=== PATIENT | female | born 1935 | race Caucasian/White ===

== ENCOUNTER 2017-10-20 21:26 | Inpatient (IN) | payer MEDICARE, BC ==
[2017-10-20 22:40] VITALS: BP 153/68
--- NOTE | 2017-10-21 09:22 | History and Physical ---
History of Present Illness - HPI Chief Complaint: Increased in agitation HPI: Patient is a permanent resident of a SNF she was send for evaluation due to increased in agitation. Vital Signs: Last Vital Signs Temp 97.1 F 10/21/17 06:25 Pulse 69 10/21/17 06:25 Resp 19 10/21/17 06:25 BP 129/61 10/21/17 06:25 Pulse Ox 94 10/21/17 06:25 Past Medical History Cardiovascular: Report: CAD, CHF, HTN, NV Pulmonary: Report: No Pertinent Hx [employer]: Report: No Pertinent Hx GI: Report: No Pertinent Hx Psych: Report: No Pertinent Hx Musculoskeletal: Report: Stiffness, Other (Limited movement of lower extremities , contracture of lower extremities.) Rheumatologic: Report: No pertinent Hx Infectious Disease: Report: No Pertinent Hx Renal/: Report: No Pertinent Hx Endocrine: Report: No Pertinent Hx - Past Surgical History Past Surgical History: No pertinent Hx Family Medical History - Family Member not known History Unknown: Yes Social History Smoke: No Alcohol: None Drugs: None Lives: Shelter Domestic Violence: Negative - Medications Home Medications: Home Medication Medication Instructions Recorded Type Acetaminophen [Acetaminophen ER] 2 tab PO Q6H PRN 10/20/17 History Digoxin [Digitek] 125 mcg PO DAILY 10/20/17 History Hydrocodone/Acetaminophen [[place] 1 tab PO Q4HR PRN 10/20/17 History 325 mg-5 mg*] Ibuprofen [Motrin*] 1 tab PO Q6HR PRN 10/20/17 History Omeprazole 20 mg PO DAILY 10/20/17 History Polyethylene Glycol 3350 1 packet PO DAILY 10/20/17 History QUEtiapine Fumarate [SEROquel] 1 tab PO PRN PRN 10/20/17 History - Allergies Allergies/Adverse Reactions: Allergies Allergy/AdvReac Type Severity Reaction Status Date / Time No Known Allergies Allergy Verified 10/20/17 22:38 Review of Systems - Review of Systems Constitutional: Report: Weakness Eyes: Report: No Significant ENT: Report: No Significant, Nose Pain Respiratory: Report: No Significant Cardiovascular: Report: No Significant Gastrointestinal: Report: No Significant Genitourinary: Report: No Significant Musculoskeletal: Report: No Significant Skin: Report: No Significant Neurological: Report: No Significant Physical Exam - Physical Exam HEENT: Report: Ears Nose Throat within normal limits Neck: Report: Within normal limits Cardiovascular Systems: Report: Regular, Rate and Rhythm Respiratory: Report: Breath Sounds are within normal limits Abdomen: Report: Non-tender to palpation Back: Report: Inspection of back is within normal limits. Extremities: Report: Other (Contracture of both lower extremities, limited movement.) Skin: Report: Color of skin is within normal limits Neuro/Psych: Report: Disoriented to name time or place - Lab Results All Lab Results last 24 hours: Laboratory Results - last 24 hr 10/20/17 22:04 POC Glucose 117 H - Assessment Assessment: Patient is awake, alert, calm, in no acute distress. Dx: increased in agitation , S/P NV, CHF, CAD, HTN - Plan Plan: She is follow by Psychiatry, will continue SNF meds, Will continue to monitor.
[2017-10-21] MEDS: POLYETHYLENE GLYCOL 3350 17 GM PACK PO SCH (10:00)
[2017-10-21] MEDS: Hydrocodone/APAP 5mg/325mg Tab PO PRN (19:59)
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
[2017-10-22 07:33] LABS: % BASOPHILS 0.7 % (0.0-2.0); % EOSINOPHILS 4.8 % (0.0-5.0); % LYMPHOCYTES 36.7 % (20.0-50.0); % MONOCYTES 9.7 % (2.0-10.0); % NEUTROPHILS 48.1 % (40.0-80.0); BASOPHILE ABSOLUTE 0.1 Th/cumm (0-0.2); EOSINOPHILE ABSOLUTE 0.4 Th/cmm (0.1-0.4); HEMATOCRIT 29.9 % (41.0-60); HEMOGLOBIN 9.7 gm/dL (12-16); LYMPHOCYTE ABSOLUTE 2.8 Th/cmm (1.5-3.0); MEAN CELL VOLUME 81.5 fl (81-100); MEAN CORPUSCULAR HEMOGLOBIN 26.5 pg (27.0-31.0); MEAN CORPUSCULAR HGB CONC 32.6 pg (28.0-36.0); MONOCYTE ABSOLUTE 0.7 Th/cmm (0.3-1.0); NEUTROPHILE ABSOLUTE 3.7 Th/cmm (1.8-8.0); PLATELET COUNT 372 Th/cmm (150-400); RED BLOOD COUNT 3.67 Mil/cmm (3.80-5.20); RED CELL DISTRIBUTION WIDTH 16.4 % (11.5-20.0); WHITE BLOOD COUNT 7.7 Th/cmm (4.8-10.8)
[2017-10-22 07:53] LABS: ALB/GLOB RATIO 1.3 (1.0-1.8); ALBUMIN 3.4 gm/dL (3.7-5.3); ALKALINE PHOSPHATASE 77 U/L (34-104); ANION GAP 9.7 (7.0-16.0); BILIRUBIN,TOTAL 0.2 mg/dL (0.3-1.0); BUN - UREA NITROGEN 13 mg/dL (7-25); CALCIUM SERUM 8.9 mg/dL (8.6-10.3); CARBON DIOXIDE 27.6 mEq/L (21.0-31.0); CHLORIDE 105 mEq/L (98-107); CREATININE - SERUM 0.5 mg/dL (0.6-1.2); GLUCOSE 95 mg/dL (70-105); POTASSIUM SERUM 4.3 mEq/L (3.5-5.1); SGOT 11 U/L (13-39); SGPT/ALT 6 U/L (7-52); SODIUM SERUM 138 mEq/L (136-145)
[2017-10-22] MEDS: POLYETHYLENE GLYCOL 3350 17 GM PACK PO SCH (10:00)
--- NOTE | 2017-10-22 14:38 | General Progress Note ---
Subjective - Review of Systems Service Date: 10/22/17 Subjective: I have pain in my leg Objective - Results Result Diagrams: 10/22/17 07:20 10/22/17 07:20 Recent Labs: Laboratory Last Values WBC 7.7 Th/cmm (4.8-10.8) 10/22/17 07:20 RBC 3.67 Mil/cmm (3.80-5.20) L 10/22/17 07:20 Hgb 9.7 gm/dL (12-16) L 10/22/17 07:20 Hct 29.9 % (41.0-60) L 10/22/17 07:20 MCV 81.5 fl (81-100) 10/22/17 07:20 MCH 26.5 pg (27.0-31.0) L 10/22/17 07:20 MCHC Differential 32.6 pg (28.0-36.0) 10/22/17 07:20 RDW 16.4 % (11.5-20.0) 10/22/17 07:20 Plt Count 372 Th/cmm (150-400) 10/22/17 07:20 MPV 8.0 fl 10/22/17 07:20 Neutrophils % 48.1 % (40.0-80.0) 10/22/17 07:20 Lymphocytes % 36.7 % (20.0-50.0) 10/22/17 07:20 Monocytes % 9.7 % (2.0-10.0) 10/22/17 07:20 Eosinophils % 4.8 % (0.0-5.0) 10/22/17 07:20 Basophils % 0.7 % (0.0-2.0) 10/22/17 07:20 Sodium 138 mEq/L (136-145) 10/22/17 07:20 Potassium 4.3 mEq/L (3.5-5.1) 10/22/17 07:20 Chloride 105 mEq/L (98-107) 10/22/17 07:20 Carbon Dioxide 27.6 mEq/L (21.0-31.0) 10/22/17 07:20 Anion Gap 9.7 (7.0-16.0) 10/22/17 07:20 BUN 13 mg/dL (7-25) 10/22/17 07:20 Creatinine 0.5 mg/dL (0.6-1.2) L 10/22/17 07:20 Est GFR ( Amer) TNP 10/22/17 07:20 Est GFR (Non-Af Amer) TNP 10/22/17 07:20 BUN/Creatinine Ratio 26.0 10/22/17 07:20 Glucose 95 mg/dL (70-105) 10/22/17 07:20 POC Glucose 117 MG/DL (70 - 105) H 10/20/17 22:04 Calcium 8.9 mg/dL (8.6-10.3) 10/22/17 07:20 Total Bilirubin 0.2 mg/dL (0.3-1.0) L 10/22/17 07:20 AST 11 U/L (13-39) L 10/22/17 07:20 ALT 6 U/L (7-52) L 10/22/17 07:20 Alkaline Phosphatase 77 U/L (34-104) 10/22/17 07:20 Total Protein 6.0 gm/dL (6.0-8.3) 10/22/17 07:20 Albumin 3.4 gm/dL (3.7-5.3) L 10/22/17 07:20 Globulin 2.6 gm/dL 10/22/17 07:20 Albumin/Globulin Ratio 1.3 (1.0-1.8) 10/22/17 07:20 TSH 1.98 uIU/ml (0.34-5.60) 10/22/17 07:20 - Physical Exam Vitals and I&O: Vital Signs Temp 96.9 F 10/22/17 07:11 Pulse 63 10/22/17 10:00 Resp 19 10/22/17 07:11 BP 112/56 10/22/17 07:11 Pulse Ox 96 10/22/17 07:11 Intake & Output 10/21/17 10/22/17 10/22/17 18:59 06:59 18:59 Intake Total 1600 120 Balance 1600 120 Intake: Oral 1600 120 Other: # Voids 4 3 # Bowel Movements 0 Active Medications: Current Medications Acetaminophen (Tylenol) 650 mg PO Q6H PRN PRN Reason: Anesthesia Stop: 12/19/17 23:17 Acetaminophen/Hydrocodone Bitart ([place] 5mg/325mg) 1 tab PO Q4HR PRN PRN Reason: pain 4-6 Stop: 12/19/17 23:15 Last Admin: 10/21/17 19:59 Dose: 1 tab Digoxin (Lanoxin) 0.125 mg PO DAILY [facility] Stop: 12/20/17 08:59 Last Admin: 10/22/17 10:00 Dose: 0.125 mg Ibuprofen (Motrin) 600 mg PO Q6HR PRN PRN Reason: 1-3 pain Stop: 12/19/17 23:15 Last Admin: 10/21/17 05:57 Dose: 600 mg Lorazepam (Ativan) 0.5 mg PO Q4HR PRN; Protocol PRN Reason: Anxiety Stop: 11/19/17 23:08 Polyethylene Glycol (Miralax) 17 gm PO DAILY [place] Stop: 12/20/17 08:59 Last Admin: 10/22/17 10:00 Dose: 17 gm Quetiapine Fumarate (Seroquel) 25 mg PO PRN PRN; Protocol PRN Reason: Psychosis Stop: 12/19/17 23:15 Zolpidem Tartrate (Ambien) 5 mg PO HS PRN PRN Reason: Insomnia Stop: 12/19/17 23:08 General: Alert, No acute distress HEENT: Atraumatic Neck: Supple Cardiovascular: Regular rate Lungs: Clear to auscultation Abdomen: Bowel sounds Extremities: Other (Contracture of both feet) Neurological: Other (Non ambulatory) Skin: Other (Warm ) Psych/Mental Status: Other (Confused, not oriented) Assessment/Plan - Assessment Assessment: Patient is awake, alert, calm, in no acute distress. Dx: increased in agitation , S/P [place], CHF, CAD, HTN. - Plan Plan: She is follow by Psychiatry, will continue SNF meds, Will continue to monitor.
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
[2017-10-23] MEDS: POLYETHYLENE GLYCOL 3350 17 GM PACK PO SCH (09:04)
--- NOTE | 2017-10-23 09:08 | General Progress Note ---
Subjective - Review of Systems Service Date: 10/23/17 Subjective: I have pain in my leg Objective - Results Result Diagrams: 10/22/17 07:20 10/22/17 07:20 Recent Labs: Laboratory Last Values WBC 7.7 Th/cmm (4.8-10.8) 10/22/17 07:20 RBC 3.67 Mil/cmm (3.80-5.20) L 10/22/17 07:20 Hgb 9.7 gm/dL (12-16) L 10/22/17 07:20 Hct 29.9 % (41.0-60) L 10/22/17 07:20 MCV 81.5 fl (81-100) 10/22/17 07:20 MCH 26.5 pg (27.0-31.0) L 10/22/17 07:20 MCHC Differential 32.6 pg (28.0-36.0) 10/22/17 07:20 RDW 16.4 % (11.5-20.0) 10/22/17 07:20 Plt Count 372 Th/cmm (150-400) 10/22/17 07:20 MPV 8.0 fl 10/22/17 07:20 Neutrophils % 48.1 % (40.0-80.0) 10/22/17 07:20 Lymphocytes % 36.7 % (20.0-50.0) 10/22/17 07:20 Monocytes % 9.7 % (2.0-10.0) 10/22/17 07:20 Eosinophils % 4.8 % (0.0-5.0) 10/22/17 07:20 Basophils % 0.7 % (0.0-2.0) 10/22/17 07:20 Sodium 138 mEq/L (136-145) 10/22/17 07:20 Potassium 4.3 mEq/L (3.5-5.1) 10/22/17 07:20 Chloride 105 mEq/L (98-107) 10/22/17 07:20 Carbon Dioxide 27.6 mEq/L (21.0-31.0) 10/22/17 07:20 Anion Gap 9.7 (7.0-16.0) 10/22/17 07:20 BUN 13 mg/dL (7-25) 10/22/17 07:20 Creatinine 0.5 mg/dL (0.6-1.2) L 10/22/17 07:20 Est GFR ( Amer) TNP 10/22/17 07:20 Est GFR (Non-Af Amer) TNP 10/22/17 07:20 BUN/Creatinine Ratio 26.0 10/22/17 07:20 Glucose 95 mg/dL (70-105) 10/22/17 07:20 POC Glucose 117 MG/DL (70 - 105) H 10/20/17 22:04 Calcium 8.9 mg/dL (8.6-10.3) 10/22/17 07:20 Total Bilirubin 0.2 mg/dL (0.3-1.0) L 10/22/17 07:20 AST 11 U/L (13-39) L 10/22/17 07:20 ALT 6 U/L (7-52) L 10/22/17 07:20 Alkaline Phosphatase 77 U/L (34-104) 10/22/17 07:20 Total Protein 6.0 gm/dL (6.0-8.3) 10/22/17 07:20 Albumin 3.4 gm/dL (3.7-5.3) L 10/22/17 07:20 Globulin 2.6 gm/dL 10/22/17 07:20 Albumin/Globulin Ratio 1.3 (1.0-1.8) 10/22/17 07:20 TSH 1.98 uIU/ml (0.34-5.60) 10/22/17 07:20 - Physical Exam Vitals and I&O: Vital Signs Temp 96.9 F 10/23/17 07:35 Pulse 73 10/23/17 07:35 Resp 19 10/23/17 07:35 BP 115/63 10/23/17 07:35 Pulse Ox 98 10/23/17 07:35 Intake & Output 10/22/17 10/23/17 10/23/17 18:59 06:59 18:59 Intake Total 920 360 Balance 920 360 Intake: Oral 920 360 Other: # Voids 4 2 # Bowel Movements 2 1 Active Medications: Current Medications Acetaminophen (Tylenol) 650 mg PO Q6H PRN PRN Reason: Anesthesia Stop: 12/19/17 23:17 Acetaminophen/Hydrocodone Bitart ([place] 5mg/325mg) 1 tab PO Q4HR PRN PRN Reason: pain 4-6 Stop: 12/19/17 23:15 Last Admin: 10/21/17 19:59 Dose: 1 tab Digoxin (Lanoxin) 0.125 mg PO DAILY [place] Stop: 12/20/17 08:59 Last Admin: 10/22/17 10:00 Dose: 0.125 mg Ibuprofen (Motrin) 600 mg PO Q6HR PRN PRN Reason: 1-3 pain Stop: 12/19/17 23:15 Last Admin: 10/21/17 05:57 Dose: 600 mg Lorazepam (Ativan) 0.5 mg PO Q4HR PRN; Protocol PRN Reason: Anxiety Stop: 11/19/17 23:08 Polyethylene Glycol (Miralax) 17 gm PO DAILY [place] Stop: 12/20/17 08:59 Last Admin: 10/22/17 10:00 Dose: 17 gm Quetiapine Fumarate (Seroquel) 25 mg PO PRN PRN; Protocol PRN Reason: Psychosis Stop: 12/19/17 23:15 Zolpidem Tartrate (Ambien) 5 mg PO HS PRN PRN Reason: Insomnia Stop: 12/19/17 23:08 General: Alert, No acute distress HEENT: Atraumatic Neck: Supple Cardiovascular: Regular rate Lungs: Clear to auscultation Abdomen: Bowel sounds Extremities: Other (Contracture of both feet) Neurological: Other (Non ambulatory) Skin: Other (Warm ) Psych/Mental Status: Other (Confused, not oriented) Assessment/Plan - Assessment Assessment: Patient is awake, alert, calm, in no acute distress. Dx: increased in agitation , S/P [place], CHF, CAD, HTN. - Plan Plan: She is follow by Psychiatry, will continue SNF meds, Will continue to monitor. Nutritional Asmnt/Malnutr-PDOC - Dietary Evaluation Malnutrition Findings (Please click <Entered> for more info): Nutritional Asmnt/Malnutrition Start: 10/22/17 15: 22 Text: Status: Complete Freq: Document 10/22/17 15:22 APRIL (Rec: 10/22/17 15:53 ALTA [email or web address]) Nutritional Asmnt/Malnutrition Patient General Information Nutritional Screening High Risk Consult Diagnosis psychosis Pertinent Medical Hx/Surgical Hx CAD, HTN, CHF, [place], stiffness, limited movement of lower extremities, contracture of loer extremities Subjective Information rPt seen lying in bed at time of visit, angry about her food . Pt refused to eat pureed food. Pt has partial teeth noted. height in recorde is 13ft, possible not correct. RN made aware. Pt appeared thin. Current Diet Order/ Nutrition Support pureed Pertinent Medications seroquel Pertinent Labs 10/22 Cr 0.5, glucose 95, POC 117 Nutritional Hx/Data Current Weight (lbs) 47.627 kg Weight (Calculated Kilograms) 47.6 Weight (Calculated Grams) 18312.2 GI Symptoms GI Symptoms Constipation Difficult in: None Usual diet at home pt stated she eat regular food and cut into pieces by herself. Skin Integrity/Comment: intact Current %PO Negligible < 25% Estimated Nutritional Goals BEE in Kcals: Using Current wt Calories/Kcals/Kg 25-30 Kcals Calculated 6476-6473 Protein: Using Current wt Protein g/k-1.2 Protein Calculated 48-58 Nutritional Problem 1. Problem Problem inadequate food intake Etiology pt refusing pureed food Signs/Symptoms: PO intake <25% Malnutrition Alert Body Fat Depletion (Non-Severe) Mild Depletion Protein-Calorie Malnutrition N/A Is there a minimum of two criteria No selected? Query Text:Check all the applicable criteria. A minimum of two criteria are recommended for diagnosis of either severe or non-severe malnutrition. Intervention/Recommendation Comments 1. Recommend swallow eval for pt. If there is no chewing/ swallowing probelm, will ask MD to change diet order. ELIAS Cardenas made aware. Also RN will correct pt heigh in EMR. 2. Monitor PO intake, wt, labs and skin integrity 3. F/U as high risk in 2-3 days, 10/24-10/25 Expected Outcomes/Goals Expected Outcomes/Goals 1. PO intake to meet at least 75% of nutritional needs. 2. Wt stability, skin to remain intact, labs to approach WNL.
--- NOTE | 2017-10-23 18:20 | Progress Notes ---
DATE: 10/23/2017 SUBJECTIVE: The patient seen, chart reviewed, discussed with staff. The patient is currently in the hospital unruly, paranoid, believing staff trying to harm her, yelling, screaming, episodes of confusion noted. The patient has been making some suicidal threats and comments. The patient is calm at this time, orientation fair, engaged on exam. She has no place to go, considered gravely disabled. Family is involved. Medications were noted including doses and frequencies. The patient is still requiring some redirection. Staff noting frequent periods of confusion, forgetfulness, agitation and demanding at times. ASSESSMENT AND PLAN: The patient remains unruly. She is still agitated, not safe for a lower level of care. PLAN: We will continue to monitor, adjust and titrate medications. We will try to increase collateral information. JOB# [id number]
[2017-10-24] MEDS: POLYETHYLENE GLYCOL 3350 17 GM PACK PO SCH (08:41)
--- NOTE | 2017-10-24 10:29 | General Progress Note ---
Subjective - Review of Systems Service Date: 10/24/17 Subjective: I have pain in my leg Objective - Results Result Diagrams: 10/22/17 07:20 10/22/17 07:20 Recent Labs: Laboratory Last Values WBC 7.7 Th/cmm (4.8-10.8) 10/22/17 07:20 RBC 3.67 Mil/cmm (3.80-5.20) L 10/22/17 07:20 Hgb 9.7 gm/dL (12-16) L 10/22/17 07:20 Hct 29.9 % (41.0-60) L 10/22/17 07:20 MCV 81.5 fl (81-100) 10/22/17 07:20 MCH 26.5 pg (27.0-31.0) L 10/22/17 07:20 MCHC Differential 32.6 pg (28.0-36.0) 10/22/17 07:20 RDW 16.4 % (11.5-20.0) 10/22/17 07:20 Plt Count 372 Th/cmm (150-400) 10/22/17 07:20 MPV 8.0 fl 10/22/17 07:20 Neutrophils % 48.1 % (40.0-80.0) 10/22/17 07:20 Lymphocytes % 36.7 % (20.0-50.0) 10/22/17 07:20 Monocytes % 9.7 % (2.0-10.0) 10/22/17 07:20 Eosinophils % 4.8 % (0.0-5.0) 10/22/17 07:20 Basophils % 0.7 % (0.0-2.0) 10/22/17 07:20 Sodium 138 mEq/L (136-145) 10/22/17 07:20 Potassium 4.3 mEq/L (3.5-5.1) 10/22/17 07:20 Chloride 105 mEq/L (98-107) 10/22/17 07:20 Carbon Dioxide 27.6 mEq/L (21.0-31.0) 10/22/17 07:20 Anion Gap 9.7 (7.0-16.0) 10/22/17 07:20 BUN 13 mg/dL (7-25) 10/22/17 07:20 Creatinine 0.5 mg/dL (0.6-1.2) L 10/22/17 07:20 Est GFR ( Amer) TNP 10/22/17 07:20 Est GFR (Non-Af Amer) TNP 10/22/17 07:20 BUN/Creatinine Ratio 26.0 10/22/17 07:20 Glucose 95 mg/dL (70-105) 10/22/17 07:20 POC Glucose 117 MG/DL (70 - 105) H 10/20/17 22:04 Calcium 8.9 mg/dL (8.6-10.3) 10/22/17 07:20 Total Bilirubin 0.2 mg/dL (0.3-1.0) L 10/22/17 07:20 AST 11 U/L (13-39) L 10/22/17 07:20 ALT 6 U/L (7-52) L 10/22/17 07:20 Alkaline Phosphatase 77 U/L (34-104) 10/22/17 07:20 Total Protein 6.0 gm/dL (6.0-8.3) 10/22/17 07:20 Albumin 3.4 gm/dL (3.7-5.3) L 10/22/17 07:20 Globulin 2.6 gm/dL 10/22/17 07:20 Albumin/Globulin Ratio 1.3 (1.0-1.8) 10/22/17 07:20 TSH 1.98 uIU/ml (0.34-5.60) 10/22/17 07:20 - Physical Exam Vitals and I&O: Vital Signs Temp 97.0 F 10/24/17 06:10 Pulse 62 10/24/17 08:41 Resp 18 10/24/17 06:10 BP 99/50 10/24/17 06:10 Pulse Ox 98 10/24/17 06:10 Intake & Output 10/23/17 10/24/17 10/24/17 18:59 06:59 18:59 Intake Total 840 120 Balance 840 120 Intake: Oral 840 120 Other: # Voids 3 2 # Bowel Movements 1 Active Medications: Current Medications Acetaminophen (Tylenol) 650 mg PO Q6H PRN PRN Reason: Anesthesia Stop: 12/19/17 23:17 Acetaminophen/Hydrocodone Bitart ([place] 5mg/325mg) 1 tab PO Q4HR PRN PRN Reason: pain 4-6 Stop: 12/19/17 23:15 Last Admin: 10/21/17 19:59 Dose: 1 tab Digoxin (Lanoxin) 0.125 mg PO DAILY [place] Stop: 12/20/17 08:59 Last Admin: 10/24/17 08:41 Dose: 0.125 mg Ibuprofen (Motrin) 600 mg PO Q6HR PRN PRN Reason: 1-3 pain Stop: 12/19/17 23:15 Last Admin: 10/24/17 08:41 Dose: 600 mg Lorazepam (Ativan) 0.5 mg PO Q4HR PRN; Protocol PRN Reason: Anxiety Stop: 11/19/17 23:08 Last Admin: 10/23/17 20:31 Dose: 0.5 mg Polyethylene Glycol (Miralax) 17 gm PO DAILY [place] Stop: 12/20/17 08:59 Last Admin: 10/24/17 08:41 Dose: 17 gm Quetiapine Fumarate (Seroquel) 25 mg PO PRN PRN; Protocol PRN Reason: Psychosis Stop: 12/19/17 23:15 Zolpidem Tartrate (Ambien) 5 mg PO HS PRN PRN Reason: Insomnia Stop: 12/19/17 23:08 General: Alert, No acute distress HEENT: Atraumatic Neck: Supple Cardiovascular: Regular rate Lungs: Clear to auscultation Abdomen: Bowel sounds Extremities: Other (Contracture of both feet) Neurological: Other (Non ambulatory) Skin: Other (Warm ) Psych/Mental Status: Other (Confused, not oriented) Assessment/Plan - Assessment Assessment: Patient is awake, alert, calm, in no acute distress. Dx: increased in agitation , S/P [place], CHF, CAD, HTN. - Plan Plan: She is follow by Psychiatry, will continue SNF meds, Will continue to monitor. Nutritional Asmnt/Malnutr-PDOC - Dietary Evaluation Malnutrition Findings (Please click <Entered> for more info): Nutritional Asmnt/Malnutrition Start: 10/22/17 15: 22 Text: Status: Complete Freq: Document 10/22/17 15:22 APRIL (Rec: 10/22/17 15:53 APRIL [email or web address]) Nutritional Asmnt/Malnutrition Patient General Information Nutritional Screening High Risk Consult Diagnosis psychosis Pertinent Medical Hx/Surgical Hx CAD, HTN, CHF, [place], stiffness, limited movement of lower extremities, contracture of loer extremities Subjective Information rPt seen lying in bed at time of visit, angry about her food . Pt refused to eat pureed food. Pt has partial teeth noted. height in recorde is 13ft, possible not correct. RN made aware. Pt appeared thin. Current Diet Order/ Nutrition Support pureed Pertinent Medications seroquel Pertinent Labs 10/22 Cr 0.5, glucose 95, POC 117 Nutritional Hx/Data Current Weight (lbs) 47.627 kg Weight (Calculated Kilograms) 47.6 Weight (Calculated Grams) 17311.2 GI Symptoms GI Symptoms Constipation Difficult in: None Usual diet at home pt stated she eat regular food and cut into pieces by herself. Skin Integrity/Comment: intact Current %PO Negligible < 25% Estimated Nutritional Goals BEE in Kcals: Using Current wt Calories/Kcals/Kg 25-30 Kcals Calculated 2439-0531 Protein: Using Current wt Protein g/k-1.2 Protein Calculated 48-58 Nutritional Problem 1. Problem Problem inadequate food intake Etiology pt refusing pureed food Signs/Symptoms: PO intake <25% Malnutrition Alert Body Fat Depletion (Non-Severe) Mild Depletion Protein-Calorie Malnutrition N/A Is there a minimum of two criteria No selected? Query Text:Check all the applicable criteria. A minimum of two criteria are recommended for diagnosis of either severe or non-severe malnutrition. Intervention/Recommendation Comments 1. Recommend swallow eval for pt. If there is no chewing/ swallowing probelm, will ask MD to change diet order. ELIAS Cardenas made aware. Also RN will correct pt heigh in EMR. 2. Monitor PO intake, wt, labs and skin integrity 3. F/U as high risk in 2-3 days, 10/24-10/25 Expected Outcomes/Goals Expected Outcomes/Goals 1. PO intake to meet at least 75% of nutritional needs. 2. Wt stability, skin to remain intact, labs to approach WNL.
--- NOTE | 2017-10-25 02:21 | Progress Notes ---
DATE: 10/24/[address] Valencia. Case was discussed with staff of the patient, reviewed records. This is an 82-year-old female who was admitted on 10/20/2017 on the hold threatening to kill herself. The patient came from [place], [place]. She fell into the ____ and made some suicidal comments presenting depressed, withdrawn, sad, but guarded. She has a family history involved son-in-law who has been at long-term facility, although tavern operator says has been involved for sometime now. She is , has 2 children. The patient has been unruly paranoid at times believe the staff trying to harm her yelling and screaming episodes, confusion, still making suicidal threats. She is unpredictable, impulsive, needing redirection. In general, the staff report that she has some little progress. No side effects with the medication, no sedation, no nausea, no extrapyramidal symptoms and Seroquel 25 mg at needed. We will continue to work with the patient in group therapy, milieu therapy, and adjust the medications as needed. JOB# [id number]
[2017-10-25] MEDS: POLYETHYLENE GLYCOL 3350 17 GM PACK PO SCH (09:51)
[2017-10-25] MEDS: Hydrocodone/APAP 5mg/325mg Tab PO PRN (11:24)
--- NOTE | 2017-10-25 11:47 | General Progress Note ---
Subjective - Review of Systems Service Date: 10/25/17 Subjective: I have pain in my leg Objective - Results Result Diagrams: 10/22/17 07:20 10/22/17 07:20 Recent Labs: Laboratory Last Values WBC 7.7 Th/cmm (4.8-10.8) 10/22/17 07:20 RBC 3.67 Mil/cmm (3.80-5.20) L 10/22/17 07:20 Hgb 9.7 gm/dL (12-16) L 10/22/17 07:20 Hct 29.9 % (41.0-60) L 10/22/17 07:20 MCV 81.5 fl (81-100) 10/22/17 07:20 MCH 26.5 pg (27.0-31.0) L 10/22/17 07:20 MCHC Differential 32.6 pg (28.0-36.0) 10/22/17 07:20 RDW 16.4 % (11.5-20.0) 10/22/17 07:20 Plt Count 372 Th/cmm (150-400) 10/22/17 07:20 MPV 8.0 fl 10/22/17 07:20 Neutrophils % 48.1 % (40.0-80.0) 10/22/17 07:20 Lymphocytes % 36.7 % (20.0-50.0) 10/22/17 07:20 Monocytes % 9.7 % (2.0-10.0) 10/22/17 07:20 Eosinophils % 4.8 % (0.0-5.0) 10/22/17 07:20 Basophils % 0.7 % (0.0-2.0) 10/22/17 07:20 Sodium 138 mEq/L (136-145) 10/22/17 07:20 Potassium 4.3 mEq/L (3.5-5.1) 10/22/17 07:20 Chloride 105 mEq/L (98-107) 10/22/17 07:20 Carbon Dioxide 27.6 mEq/L (21.0-31.0) 10/22/17 07:20 Anion Gap 9.7 (7.0-16.0) 10/22/17 07:20 BUN 13 mg/dL (7-25) 10/22/17 07:20 Creatinine 0.5 mg/dL (0.6-1.2) L 10/22/17 07:20 Est GFR ( Amer) TNP 10/22/17 07:20 Est GFR (Non-Af Amer) TNP 10/22/17 07:20 BUN/Creatinine Ratio 26.0 10/22/17 07:20 Glucose 95 mg/dL (70-105) 10/22/17 07:20 POC Glucose 117 MG/DL (70 - 105) H 10/20/17 22:04 Calcium 8.9 mg/dL (8.6-10.3) 10/22/17 07:20 Total Bilirubin 0.2 mg/dL (0.3-1.0) L 10/22/17 07:20 AST 11 U/L (13-39) L 10/22/17 07:20 ALT 6 U/L (7-52) L 10/22/17 07:20 Alkaline Phosphatase 77 U/L (34-104) 10/22/17 07:20 Total Protein 6.0 gm/dL (6.0-8.3) 10/22/17 07:20 Albumin 3.4 gm/dL (3.7-5.3) L 10/22/17 07:20 Globulin 2.6 gm/dL 10/22/17 07:20 Albumin/Globulin Ratio 1.3 (1.0-1.8) 10/22/17 07:20 TSH 1.98 uIU/ml (0.34-5.60) 10/22/17 07:20 - Physical Exam Vitals and I&O: Vital Signs Temp 98 F 10/25/17 06:46 Pulse 71 10/25/17 09:51 Resp 20 10/25/17 06:46 BP 111/61 10/25/17 06:46 Pulse Ox 96 10/25/17 06:46 Intake & Output 10/24/17 10/25/17 10/25/17 18:59 06:59 18:59 Intake Total 500 480 Balance 500 480 Intake: Oral 500 480 Other: # Voids 3 1 # Bowel Movements 0 Active Medications: Current Medications Acetaminophen (Tylenol) 650 mg PO Q6H PRN PRN Reason: Anesthesia Stop: 12/19/17 23:17 Acetaminophen/Hydrocodone Bitart ([place] 5mg/325mg) 1 tab PO Q4HR PRN PRN Reason: pain 4-6 Stop: 12/19/17 23:15 Last Admin: 10/25/17 11:24 Dose: 1 tab Digoxin (Lanoxin) 0.125 mg PO DAILY [place] Stop: 12/20/17 08:59 Last Admin: 10/25/17 09:51 Dose: 0.125 mg Ibuprofen (Motrin) 600 mg PO Q6HR PRN PRN Reason: 1-3 pain Stop: 12/19/17 23:15 Last Admin: 10/24/17 16:42 Dose: 600 mg Lorazepam (Ativan) 0.5 mg PO Q4HR PRN; Protocol PRN Reason: Anxiety Stop: 11/19/17 23:08 Last Admin: 10/24/17 20:08 Dose: 0.5 mg Polyethylene Glycol (Miralax) 17 gm PO DAILY [place] Stop: 12/20/17 08:59 Last Admin: 10/25/17 09:51 Dose: 17 gm Quetiapine Fumarate (Seroquel) 25 mg PO PRN PRN; Protocol PRN Reason: Psychosis Stop: 12/19/17 23:15 Zolpidem Tartrate (Ambien) 5 mg PO HS PRN PRN Reason: Insomnia Stop: 12/19/17 23:08 Last Admin: 10/24/17 20:08 Dose: 5 mg General: Alert, No acute distress HEENT: Atraumatic Neck: Supple Cardiovascular: Regular rate Lungs: Clear to auscultation Abdomen: Bowel sounds Extremities: Other (Contracture of both feet) Neurological: Other (Non ambulatory) Skin: Other (Warm ) Psych/Mental Status: Other (Confused, not oriented) Assessment/Plan - Assessment Assessment: Patient is awake, alert, calm, in no acute distress. Dx: increased in agitation , S/P [place], CHF, CAD, HTN. - Plan Plan: She is follow by Psychiatry, will continue SNF meds, Will continue to monitor. Nutritional Asmnt/Malnutr-PDOC - Dietary Evaluation Malnutrition Findings (Please click <Entered> for more info): Nutritional Asmnt/Malnutrition Start: 10/22/17 15: 22 Text: Status: Complete Freq: Document 10/22/17 15:22 APRIL (Rec: 10/22/17 15:53 [facility] [email or web address]) Nutritional Asmnt/Malnutrition Patient General Information Nutritional Screening High Risk Consult Diagnosis psychosis Pertinent Medical Hx/Surgical Hx CAD, HTN, CHF, [place], stiffness, limited movement of lower extremities, contracture of loer extremities Subjective Information rPt seen lying in bed at time of visit, angry about her food . Pt refused to eat pureed food. Pt has partial teeth noted. height in recorde is 13ft, possible not correct. RN made aware. Pt appeared thin. Current Diet Order/ Nutrition Support pureed Pertinent Medications seroquel Pertinent Labs 10/22 Cr 0.5, glucose 95, POC 117 Nutritional Hx/Data Current Weight (lbs) 47.627 kg Weight (Calculated Kilograms) 47.6 Weight (Calculated Grams) 72203.2 GI Symptoms GI Symptoms Constipation Difficult in: None Usual diet at home pt stated she eat regular food and cut into pieces by herself. Skin Integrity/Comment: intact Current %PO Negligible < 25% Estimated Nutritional Goals BEE in Kcals: Using Current wt Calories/Kcals/Kg 25-30 Kcals Calculated 8103-3123 Protein: Using Current wt Protein g/k-1.2 Protein Calculated 48-58 Nutritional Problem 1. Problem Problem inadequate food intake Etiology pt refusing pureed food Signs/Symptoms: PO intake <25% Malnutrition Alert Body Fat Depletion (Non-Severe) Mild Depletion Protein-Calorie Malnutrition N/A Is there a minimum of two criteria No selected? Query Text:Check all the applicable criteria. A minimum of two criteria are recommended for diagnosis of either severe or non-severe malnutrition. Intervention/Recommendation Comments 1. Recommend swallow eval for pt. If there is no chewing/ swallowing probelm, will ask MD to change diet order. ELIAS Cardenas made aware. Also RN will correct pt heigh in EMR. 2. Monitor PO intake, wt, labs and skin integrity 3. F/U as high risk in 2-3 days, 10/24-10/25 Expected Outcomes/Goals Expected Outcomes/Goals 1. PO intake to meet at least 75% of nutritional needs. 2. Wt stability, skin to remain intact, labs to approach WNL.
--- NOTE | 2017-10-26 02:02 | Progress Notes ---
DATE: 10/25/[address] Valencia. Case discussed with staff of the patient, reviewed records. The patient continues to isolate herself in bed. Continues to have poor insight. Continues to be unpredictable, impulsive, and needing redirection. She is compliant with the medication with no side effect. Sleeping better, eating better. Continues to have ____ suicidal. In general, she is not very talkative and no side effects with the medication, no sedation, no nausea, and no extrapyramidal symptoms. I will be initiating her on Lexapro because of her depression and suicidal ideation. We will continue to work with the patient in group therapy, milieu therapy, and adjust her medication as needed. JOB# [id number]
--- NOTE | 2017-10-26 09:08 | General Progress Note ---
Subjective - Review of Systems Service Date: 10/26/17 Subjective: I am better Objective - Results Result Diagrams: 10/22/17 07:20 10/22/17 07:20 Recent Labs: Laboratory Last Values WBC 7.7 Th/cmm (4.8-10.8) 10/22/17 07:20 RBC 3.67 Mil/cmm (3.80-5.20) L 10/22/17 07:20 Hgb 9.7 gm/dL (12-16) L 10/22/17 07:20 Hct 29.9 % (41.0-60) L 10/22/17 07:20 MCV 81.5 fl (81-100) 10/22/17 07:20 MCH 26.5 pg (27.0-31.0) L 10/22/17 07:20 MCHC Differential 32.6 pg (28.0-36.0) 10/22/17 07:20 RDW 16.4 % (11.5-20.0) 10/22/17 07:20 Plt Count 372 Th/cmm (150-400) 10/22/17 07:20 MPV 8.0 fl 10/22/17 07:20 Neutrophils % 48.1 % (40.0-80.0) 10/22/17 07:20 Lymphocytes % 36.7 % (20.0-50.0) 10/22/17 07:20 Monocytes % 9.7 % (2.0-10.0) 10/22/17 07:20 Eosinophils % 4.8 % (0.0-5.0) 10/22/17 07:20 Basophils % 0.7 % (0.0-2.0) 10/22/17 07:20 Sodium 138 mEq/L (136-145) 10/22/17 07:20 Potassium 4.3 mEq/L (3.5-5.1) 10/22/17 07:20 Chloride 105 mEq/L (98-107) 10/22/17 07:20 Carbon Dioxide 27.6 mEq/L (21.0-31.0) 10/22/17 07:20 Anion Gap 9.7 (7.0-16.0) 10/22/17 07:20 BUN 13 mg/dL (7-25) 10/22/17 07:20 Creatinine 0.5 mg/dL (0.6-1.2) L 10/22/17 07:20 Est GFR ( Amer) TNP 10/22/17 07:20 Est GFR (Non-Af Amer) TNP 10/22/17 07:20 BUN/Creatinine Ratio 26.0 10/22/17 07:20 Glucose 95 mg/dL (70-105) 10/22/17 07:20 POC Glucose 117 MG/DL (70 - 105) H 10/20/17 22:04 Calcium 8.9 mg/dL (8.6-10.3) 10/22/17 07:20 Total Bilirubin 0.2 mg/dL (0.3-1.0) L 10/22/17 07:20 AST 11 U/L (13-39) L 10/22/17 07:20 ALT 6 U/L (7-52) L 10/22/17 07:20 Alkaline Phosphatase 77 U/L (34-104) 10/22/17 07:20 Total Protein 6.0 gm/dL (6.0-8.3) 10/22/17 07:20 Albumin 3.4 gm/dL (3.7-5.3) L 10/22/17 07:20 Globulin 2.6 gm/dL 10/22/17 07:20 Albumin/Globulin Ratio 1.3 (1.0-1.8) 10/22/17 07:20 TSH 1.98 uIU/ml (0.34-5.60) 10/22/17 07:20 - Physical Exam Vitals and I&O: Vital Signs Temp 97.8 F 10/26/17 06:43 Pulse 68 10/26/17 06:43 Resp 18 10/26/17 06:43 BP 116/68 10/25/17 20:46 Pulse Ox 99 10/26/17 06:43 Intake & Output 10/25/17 10/26/17 10/26/17 18:59 06:59 18:59 Intake Total 900 240 Balance 900 240 Intake: Oral 900 240 Other: # Voids 4 1 # Bowel Movements 0 Active Medications: Current Medications Acetaminophen (Tylenol) 650 mg PO Q6H PRN PRN Reason: Anesthesia Stop: 12/19/17 23:17 Acetaminophen/Hydrocodone Bitart ([place] 5mg/325mg) 1 tab PO Q4HR PRN PRN Reason: pain 4-6 Stop: 12/19/17 23:15 Last Admin: 10/25/17 11:24 Dose: 1 tab Digoxin (Lanoxin) 0.125 mg PO DAILY [place] Stop: 12/20/17 08:59 Last Admin: 10/25/17 09:51 Dose: 0.125 mg Escitalopram Oxalate (Lexapro) 5 mg PO DAILY [place] PRN Reason: Protocol Stop: 12/25/17 08:59 Ibuprofen (Motrin) 600 mg PO Q6HR PRN PRN Reason: 1-3 pain Stop: 12/19/17 23:15 Last Admin: 10/24/17 16:42 Dose: 600 mg Lorazepam (Ativan) 0.5 mg PO Q4HR PRN; Protocol PRN Reason: Anxiety Stop: 11/19/17 23:08 Last Admin: 10/25/17 21:00 Dose: 0.5 mg Polyethylene Glycol (Miralax) 17 gm PO DAILY [place] Stop: 12/20/17 08:59 Last Admin: 10/25/17 09:51 Dose: 17 gm Quetiapine Fumarate (Seroquel) 25 mg PO PRN PRN; Protocol PRN Reason: Psychosis Stop: 12/19/17 23:15 Zolpidem Tartrate (Ambien) 5 mg PO HS PRN PRN Reason: Insomnia Stop: 12/19/17 23:08 Last Admin: 10/25/17 21:00 Dose: 5 mg General: Alert, No acute distress HEENT: Atraumatic Neck: Supple Cardiovascular: Regular rate Lungs: Clear to auscultation Abdomen: Bowel sounds Extremities: Other (Contracture of both feet) Neurological: Other (Non ambulatory) Skin: Other (Warm ) Psych/Mental Status: Other (Confused, not oriented) Assessment/Plan - Assessment Assessment: Patient is awake, alert, calm, in no acute distress. Dx: increased in agitation , S/P [place], CHF, CAD, HTN. - Plan Plan: She is follow by Psychiatry, will continue SNF meds, Will continue to monitor. Nutritional Asmnt/Malnutr-PDOC - Dietary Evaluation Malnutrition Findings (Please click <Entered> for more info): Nutritional Asmnt/Malnutrition Start: 10/22/17 15: 22 Text: Status: Complete Freq: Document 10/22/17 15:22 LCHENG (Rec: 10/22/17 15:53 [facility] [email or web address]) Nutritional Asmnt/Malnutrition Patient General Information Nutritional Screening High Risk Consult Diagnosis psychosis Pertinent Medical Hx/Surgical Hx CAD, HTN, CHF, [place], stiffness, limited movement of lower extremities, contracture of loer extremities Subjective Information rPt seen lying in bed at time of visit, angry about her food . Pt refused to eat pureed food. Pt has partial teeth noted. height in recorde is 13ft, possible not correct. RN made aware. Pt appeared thin. Current Diet Order/ Nutrition Support pureed Pertinent Medications seroquel Pertinent Labs 10/22 Cr 0.5, glucose 95, POC 117 Nutritional Hx/Data Current Weight (lbs) 47.627 kg Weight (Calculated Kilograms) 47.6 Weight (Calculated Grams) 40067.2 GI Symptoms GI Symptoms Constipation Difficult in: None Usual diet at home pt stated she eat regular food and cut into pieces by herself. Skin Integrity/Comment: intact Current %PO Negligible < 25% Estimated Nutritional Goals BEE in Kcals: Using Current wt Calories/Kcals/Kg 25-30 Kcals Calculated 4622-1905 Protein: Using Current wt Protein g/k-1.2 Protein Calculated 48-58 Nutritional Problem 1. Problem Problem inadequate food intake Etiology pt refusing pureed food Signs/Symptoms: PO intake <25% Malnutrition Alert Body Fat Depletion (Non-Severe) Mild Depletion Protein-Calorie Malnutrition N/A Is there a minimum of two criteria No selected? Query Text:Check all the applicable criteria. A minimum of two criteria are recommended for diagnosis of either severe or non-severe malnutrition. Intervention/Recommendation Comments 1. Recommend swallow eval for pt. If there is no chewing/ swallowing probelm, will ask MD to change diet order. ELIAS Cardenas made aware. Also RN will correct pt heigh in EMR. 2. Monitor PO intake, wt, labs and skin integrity 3. F/U as high risk in 2-3 days, 10/24-10/25 Expected Outcomes/Goals Expected Outcomes/Goals 1. PO intake to meet at least 75% of nutritional needs. 2. Wt stability, skin to remain intact, labs to approach WNL.
--- NOTE | 2017-10-26 09:09 | General Progress Note ---
Subjective - Review of Systems Service Date: 09/25/17 Subjective: I am better Objective - Results Result Diagrams: 10/22/17 07:20 10/22/17 07:20 Recent Labs: Laboratory Last Values WBC 7.7 Th/cmm (4.8-10.8) 10/22/17 07:20 RBC 3.67 Mil/cmm (3.80-5.20) L 10/22/17 07:20 Hgb 9.7 gm/dL (12-16) L 10/22/17 07:20 Hct 29.9 % (41.0-60) L 10/22/17 07:20 MCV 81.5 fl (81-100) 10/22/17 07:20 MCH 26.5 pg (27.0-31.0) L 10/22/17 07:20 MCHC Differential 32.6 pg (28.0-36.0) 10/22/17 07:20 RDW 16.4 % (11.5-20.0) 10/22/17 07:20 Plt Count 372 Th/cmm (150-400) 10/22/17 07:20 MPV 8.0 fl 10/22/17 07:20 Neutrophils % 48.1 % (40.0-80.0) 10/22/17 07:20 Lymphocytes % 36.7 % (20.0-50.0) 10/22/17 07:20 Monocytes % 9.7 % (2.0-10.0) 10/22/17 07:20 Eosinophils % 4.8 % (0.0-5.0) 10/22/17 07:20 Basophils % 0.7 % (0.0-2.0) 10/22/17 07:20 Sodium 138 mEq/L (136-145) 10/22/17 07:20 Potassium 4.3 mEq/L (3.5-5.1) 10/22/17 07:20 Chloride 105 mEq/L (98-107) 10/22/17 07:20 Carbon Dioxide 27.6 mEq/L (21.0-31.0) 10/22/17 07:20 Anion Gap 9.7 (7.0-16.0) 10/22/17 07:20 BUN 13 mg/dL (7-25) 10/22/17 07:20 Creatinine 0.5 mg/dL (0.6-1.2) L 10/22/17 07:20 Est GFR ( Amer) TNP 10/22/17 07:20 Est GFR (Non-Af Amer) TNP 10/22/17 07:20 BUN/Creatinine Ratio 26.0 10/22/17 07:20 Glucose 95 mg/dL (70-105) 10/22/17 07:20 POC Glucose 117 MG/DL (70 - 105) H 10/20/17 22:04 Calcium 8.9 mg/dL (8.6-10.3) 10/22/17 07:20 Total Bilirubin 0.2 mg/dL (0.3-1.0) L 10/22/17 07:20 AST 11 U/L (13-39) L 10/22/17 07:20 ALT 6 U/L (7-52) L 10/22/17 07:20 Alkaline Phosphatase 77 U/L (34-104) 10/22/17 07:20 Total Protein 6.0 gm/dL (6.0-8.3) 10/22/17 07:20 Albumin 3.4 gm/dL (3.7-5.3) L 10/22/17 07:20 Globulin 2.6 gm/dL 10/22/17 07:20 Albumin/Globulin Ratio 1.3 (1.0-1.8) 10/22/17 07:20 TSH 1.98 uIU/ml (0.34-5.60) 10/22/17 07:20 - Physical Exam Vitals and I&O: Vital Signs Temp 97.8 F 10/26/17 06:43 Pulse 68 10/26/17 06:43 Resp 18 10/26/17 06:43 BP 116/68 10/25/17 20:46 Pulse Ox 99 10/26/17 06:43 Intake & Output 10/25/17 10/26/17 10/26/17 18:59 06:59 18:59 Intake Total 900 240 Balance 900 240 Intake: Oral 900 240 Other: # Voids 4 1 # Bowel Movements 0 Active Medications: Current Medications Acetaminophen (Tylenol) 650 mg PO Q6H PRN PRN Reason: Anesthesia Stop: 12/19/17 23:17 Acetaminophen/Hydrocodone Bitart ([place] 5mg/325mg) 1 tab PO Q4HR PRN PRN Reason: pain 4-6 Stop: 12/19/17 23:15 Last Admin: 10/25/17 11:24 Dose: 1 tab Digoxin (Lanoxin) 0.125 mg PO DAILY [place] Stop: 12/20/17 08:59 Last Admin: 10/25/17 09:51 Dose: 0.125 mg Escitalopram Oxalate (Lexapro) 5 mg PO DAILY [place] PRN Reason: Protocol Stop: 12/25/17 08:59 Ibuprofen (Motrin) 600 mg PO Q6HR PRN PRN Reason: 1-3 pain Stop: 12/19/17 23:15 Last Admin: 10/24/17 16:42 Dose: 600 mg Lorazepam (Ativan) 0.5 mg PO Q4HR PRN; Protocol PRN Reason: Anxiety Stop: 11/19/17 23:08 Last Admin: 10/25/17 21:00 Dose: 0.5 mg Polyethylene Glycol (Miralax) 17 gm PO DAILY [place] Stop: 12/20/17 08:59 Last Admin: 10/25/17 09:51 Dose: 17 gm Quetiapine Fumarate (Seroquel) 25 mg PO PRN PRN; Protocol PRN Reason: Psychosis Stop: 12/19/17 23:15 Zolpidem Tartrate (Ambien) 5 mg PO HS PRN PRN Reason: Insomnia Stop: 12/19/17 23:08 Last Admin: 10/25/17 21:00 Dose: 5 mg General: Alert, No acute distress HEENT: Atraumatic Neck: Supple Cardiovascular: Regular rate Lungs: Clear to auscultation Abdomen: Bowel sounds Extremities: Other (Contracture of both feet) Neurological: Other (Non ambulatory) Skin: Other (Warm ) Psych/Mental Status: Other (Confused, not oriented) Assessment/Plan - Assessment Assessment: Patient is awake, alert, calm, in no acute distress. Dx: increased in agitation , S/P [place], CHF, CAD, HTN. - Plan Plan: She is follow by Psychiatry, will continue SNF meds, Will continue to monitor. Nutritional Asmnt/Malnutr-PDOC - Dietary Evaluation Malnutrition Findings (Please click <Entered> for more info): Nutritional Asmnt/Malnutrition Start: 10/22/17 15: 22 Text: Status: Complete Freq: Document 10/22/17 15:22 LCHENG (Rec: 10/22/17 15:[address] [facility] [email or web address]) Nutritional Asmnt/Malnutrition Patient General Information Nutritional Screening High Risk Consult Diagnosis psychosis Pertinent Medical Hx/Surgical Hx CAD, HTN, CHF, [place], stiffness, limited movement of lower extremities, contracture of loer extremities Subjective Information rPt seen lying in bed at time of visit, angry about her food . Pt refused to eat pureed food. Pt has partial teeth noted. height in recorde is 13ft, possible not correct. RN made aware. Pt appeared thin. Current Diet Order/ Nutrition Support pureed Pertinent Medications seroquel Pertinent Labs 10/22 Cr 0.5, glucose 95, POC 117 Nutritional Hx/Data Current Weight (lbs) 47.627 kg Weight (Calculated Kilograms) 47.6 Weight (Calculated Grams) 85731.2 GI Symptoms GI Symptoms Constipation Difficult in: None Usual diet at home pt stated she eat regular food and cut into pieces by herself. Skin Integrity/Comment: intact Current %PO Negligible < 25% Estimated Nutritional Goals BEE in Kcals: Using Current wt Calories/Kcals/Kg 25-30 Kcals Calculated 4454-3570 Protein: Using Current wt Protein g/k-1.2 Protein Calculated 48-58 Nutritional Problem 1. Problem Problem inadequate food intake Etiology pt refusing pureed food Signs/Symptoms: PO intake <25% Malnutrition Alert Body Fat Depletion (Non-Severe) Mild Depletion Protein-Calorie Malnutrition N/A Is there a minimum of two criteria No selected? Query Text:Check all the applicable criteria. A minimum of two criteria are recommended for diagnosis of either severe or non-severe malnutrition. Intervention/Recommendation Comments 1. Recommend swallow eval for pt. If there is no chewing/ swallowing probelm, will ask MD to change diet order. ELIAS Cardenas made aware. Also RN will correct pt heigh in EMR. 2. Monitor PO intake, wt, labs and skin integrity 3. F/U as high risk in 2-3 days, 10/24-10/25 Expected Outcomes/Goals Expected Outcomes/Goals 1. PO intake to meet at least 75% of nutritional needs. 2. Wt stability, skin to remain intact, labs to approach WNL.
[2017-10-26] MEDS: Escitalopram Oxalate 5 mg Tab PO SCH (09:54)
[2017-10-26] MEDS: POLYETHYLENE GLYCOL 3350 17 GM PACK PO SCH (09:55)
[2017-10-26] MEDS: Hydrocodone/APAP 5mg/325mg Tab PO PRN (10:40)
--- NOTE | 2017-10-26 20:07 | Progress Notes ---
DATE: 10/26/2017 SUBJECTIVE: The patient continuing to isolate herself. Poor insight, unpredictable, impulsive. She is somewhat confused and disoriented, not exactly sure why she is here, making some odd statements. The patient with history of depression and had made some conditional SI. Dr. Mckeon is seeing the patient over the weekend, noted that she is presenting depressed, withdrawn, sad, guarded, still with some screaming episodes, yelling episodes, still unruly at times. Her medications were noted. ASSESSMENT: The patient is still unruly, easily aroused, agitated and triggered. Currently on Lexapro. We will monitor and follow up. JOB# [id number]
--- NOTE | 2017-10-27 09:07 | General Progress Note ---
Subjective - Review of Systems Service Date: 10/27/17 Subjective: I am better Objective - Results Result Diagrams: 10/22/17 07:20 10/22/17 07:20 Recent Labs: Laboratory Last Values WBC 7.7 Th/cmm (4.8-10.8) 10/22/17 07:20 RBC 3.67 Mil/cmm (3.80-5.20) L 10/22/17 07:20 Hgb 9.7 gm/dL (12-16) L 10/22/17 07:20 Hct 29.9 % (41.0-60) L 10/22/17 07:20 MCV 81.5 fl (81-100) 10/22/17 07:20 MCH 26.5 pg (27.0-31.0) L 10/22/17 07:20 MCHC Differential 32.6 pg (28.0-36.0) 10/22/17 07:20 RDW 16.4 % (11.5-20.0) 10/22/17 07:20 Plt Count 372 Th/cmm (150-400) 10/22/17 07:20 MPV 8.0 fl 10/22/17 07:20 Neutrophils % 48.1 % (40.0-80.0) 10/22/17 07:20 Lymphocytes % 36.7 % (20.0-50.0) 10/22/17 07:20 Monocytes % 9.7 % (2.0-10.0) 10/22/17 07:20 Eosinophils % 4.8 % (0.0-5.0) 10/22/17 07:20 Basophils % 0.7 % (0.0-2.0) 10/22/17 07:20 Sodium 138 mEq/L (136-145) 10/22/17 07:20 Potassium 4.3 mEq/L (3.5-5.1) 10/22/17 07:20 Chloride 105 mEq/L (98-107) 10/22/17 07:20 Carbon Dioxide 27.6 mEq/L (21.0-31.0) 10/22/17 07:20 Anion Gap 9.7 (7.0-16.0) 10/22/17 07:20 BUN 13 mg/dL (7-25) 10/22/17 07:20 Creatinine 0.5 mg/dL (0.6-1.2) L 10/22/17 07:20 Est GFR ( Amer) TNP 10/22/17 07:20 Est GFR (Non-Af Amer) TNP 10/22/17 07:20 BUN/Creatinine Ratio 26.0 10/22/17 07:20 Glucose 95 mg/dL (70-105) 10/22/17 07:20 POC Glucose 117 MG/DL (70 - 105) H 10/20/17 22:04 Calcium 8.9 mg/dL (8.6-10.3) 10/22/17 07:20 Total Bilirubin 0.2 mg/dL (0.3-1.0) L 10/22/17 07:20 AST 11 U/L (13-39) L 10/22/17 07:20 ALT 6 U/L (7-52) L 10/22/17 07:20 Alkaline Phosphatase 77 U/L (34-104) 10/22/17 07:20 Total Protein 6.0 gm/dL (6.0-8.3) 10/22/17 07:20 Albumin 3.4 gm/dL (3.7-5.3) L 10/22/17 07:20 Globulin 2.6 gm/dL 10/22/17 07:20 Albumin/Globulin Ratio 1.3 (1.0-1.8) 10/22/17 07:20 TSH 1.98 uIU/ml (0.34-5.60) 10/22/17 07:20 - Physical Exam Vitals and I&O: Vital Signs Temp 97.2 F 10/27/17 06:22 Pulse 58 10/27/17 06:22 Resp 18 10/27/17 06:22 BP 110/56 10/27/17 06:22 Pulse Ox 96 10/27/17 06:22 Intake & Output 10/26/17 10/27/17 10/27/17 18:59 06:59 18:59 Intake Total 800 180 Balance 800 180 Intake: Oral 800 180 Other: # Voids 3 1 # Bowel Movements 0 1 Active Medications: Current Medications Acetaminophen (Tylenol) 650 mg PO Q6H PRN PRN Reason: Anesthesia Stop: 12/19/17 23:17 Last Admin: 10/26/17 21:38 Dose: 650 mg Acetaminophen/Hydrocodone Bitart ([place] 5mg/325mg) 1 tab PO Q4HR PRN PRN Reason: pain 4-6 Stop: 12/19/17 23:15 Last Admin: 10/26/17 10:40 Dose: 1 tab Digoxin (Lanoxin) 0.125 mg PO DAILY [facility] Stop: 12/20/17 08:59 Last Admin: 10/26/17 09:55 Dose: 0.125 mg Escitalopram Oxalate (Lexapro) 5 mg PO DAILY [facility] PRN Reason: Protocol Stop: 12/25/17 08:59 Last Admin: 10/26/17 09:54 Dose: 5 mg Ibuprofen (Motrin) 600 mg PO Q6HR PRN PRN Reason: 1-3 pain Stop: 12/19/17 23:15 Last Admin: 10/24/17 16:42 Dose: 600 mg Lorazepam (Ativan) 0.5 mg PO Q4HR PRN; Protocol PRN Reason: Anxiety Stop: 11/19/17 23:08 Last Admin: 10/26/17 10:40 Dose: 0.5 mg Polyethylene Glycol (Miralax) 17 gm PO DAILY [facility] Stop: 12/20/17 08:59 Last Admin: 10/26/17 09:55 Dose: Not Given Quetiapine Fumarate (Seroquel) 25 mg PO PRN PRN; Protocol PRN Reason: Psychosis Stop: 12/19/17 23:15 Last Admin: 10/26/17 10:40 Dose: 25 mg Zolpidem Tartrate (Ambien) 5 mg PO HS PRN PRN Reason: Insomnia Stop: 12/19/17 23:08 Last Admin: 10/26/17 21:38 Dose: 5 mg General: Alert, No acute distress HEENT: Atraumatic Neck: Supple Cardiovascular: Regular rate Lungs: Clear to auscultation Abdomen: Bowel sounds Extremities: Other (Contracture of both feet) Neurological: Other (Non ambulatory) Skin: Other (Warm ) Psych/Mental Status: Other (Confused, not oriented) Assessment/Plan - Assessment Assessment: Patient is awake, alert, calm, in no acute distress. Dx: increased in agitation , Anemia, S/P [place], CHF, CAD, HTN. - Plan Plan: She is follow by Psychiatry, will continue SNF meds, Will continue to monitor. Nutritional Asmnt/Malnutr-PDOC - Dietary Evaluation Malnutrition Findings (Please click <Entered> for more info): Nutritional Asmnt/Malnutrition Start: 10/22/17 15: 22 Text: Status: Complete Freq: Document 10/22/17 15:22 JASSIALTA (Rec: 10/22/17 15:53 [email or web address]) Nutritional Asmnt/Malnutrition Patient General Information Nutritional Screening High Risk Consult Diagnosis psychosis Pertinent Medical Hx/Surgical Hx CAD, HTN, CHF, [place], stiffness, limited movement of lower extremities, contracture of loer extremities Subjective Information rPt seen lying in bed at time of visit, angry about her food . Pt refused to eat pureed food. Pt has partial teeth noted. height in recorde is 13ft, possible not correct. RN made aware. Pt appeared thin. Current Diet Order/ Nutrition Support pureed Pertinent Medications seroquel Pertinent Labs 10/22 Cr 0.5, glucose 95, POC 117 Nutritional Hx/Data Current Weight (lbs) 47.627 kg Weight (Calculated Kilograms) 47.6 Weight (Calculated Grams) 80153.2 GI Symptoms GI Symptoms Constipation Difficult in: None Usual diet at home pt stated she eat regular food and cut into pieces by herself. Skin Integrity/Comment: intact Current %PO Negligible < 25% Estimated Nutritional Goals BEE in Kcals: Using Current wt Calories/Kcals/Kg 25-30 Kcals Calculated 6722-2971 Protein: Using Current wt Protein g/k-1.2 Protein Calculated 48-58 Nutritional Problem 1. Problem Problem inadequate food intake Etiology pt refusing pureed food Signs/Symptoms: PO intake <25% Malnutrition Alert Body Fat Depletion (Non-Severe) Mild Depletion Protein-Calorie Malnutrition N/A Is there a minimum of two criteria No selected? Query Text:Check all the applicable criteria. A minimum of two criteria are recommended for diagnosis of either severe or non-severe malnutrition. Intervention/Recommendation Comments 1. Recommend swallow eval for pt. If there is no chewing/ swallowing probelm, will ask MD to change diet order. ELIAS Cardenas made aware. Also RN will correct pt heigh in EMR. 2. Monitor PO intake, wt, labs and skin integrity 3. F/U as high risk in 2-3 days, 10/24-10/25 Expected Outcomes/Goals Expected Outcomes/Goals 1. PO intake to meet at least 75% of nutritional needs. 2. Wt stability, skin to remain intact, labs to approach WNL.
[2017-10-27] MEDS: Escitalopram Oxalate 5 mg Tab PO SCH (10:13)
[2017-10-27] MEDS: POLYETHYLENE GLYCOL 3350 17 GM PACK PO SCH (10:13)
[2017-10-27] MEDS: Hydrocodone/APAP 5mg/325mg Tab PO PRN (17:13)
--- NOTE | 2017-10-27 23:31 | Progress Notes ---
DATE: 10/27/2017 The patient continuing to isolate, poor insight, unpredictable, still unruly, yelling episodes at times, screaming episodes at times, some confusion noted, fluctuations in her mentation. Per delinquency prevention social worker, no EPS involved. There an APS justification for financial neglect and abandonment and psychological as well. stock worker is following up with us. The patient is complaining of some shoulder pain, this is being addressed. The patient remains somewhat guarded, suspicious, still anxious, Ativan p.r.n. being given. ASSESSMENT: The patient remains unruly, anxious, ongoing behavioral disturbances. PLAN: We will continue to monitor. We are currently trying to deal with her psychosocial circumstances, APS case for example, safe discharge plan. We will monitor and followup. JOB# [id number]
[2017-10-28 07:33] LABS: % BASOPHILS 0.7 % (0.0-2.0); % EOSINOPHILS 3.4 % (0.0-5.0); % LYMPHOCYTES 24.6 % (20.0-50.0); % MONOCYTES 8.6 % (2.0-10.0); % NEUTROPHILS 62.7 % (40.0-80.0); BASOPHILE ABSOLUTE 0.1 Th/cumm (0-0.2); EOSINOPHILE ABSOLUTE 0.3 Th/cmm (0.1-0.4); HEMATOCRIT 29.2 % (41.0-60); HEMOGLOBIN 9.5 gm/dL (12-16); MEAN CELL VOLUME 80.7 fl (81-100); MEAN CORPUSCULAR HEMOGLOBIN 26.2 pg (27.0-31.0); MEAN CORPUSCULAR HGB CONC 32.5 pg (28.0-36.0); MEAN PLATELET VOLUME 8.2 fl; MONOCYTE ABSOLUTE 0.7 Th/cmm (0.3-1.0); NEUTROPHILE ABSOLUTE 4.9 Th/cmm (1.8-8.0); PLATELET COUNT 362 Th/cmm (150-400); RED BLOOD COUNT 3.62 Mil/cmm (3.80-5.20); RED CELL DISTRIBUTION WIDTH 16.3 % (11.5-20.0)
[2017-10-28 07:52] LABS: ALB/GLOB RATIO 1.3 (1.0-1.8); ALBUMIN 3.2 gm/dL (3.7-5.3); ALKALINE PHOSPHATASE 83 U/L (34-104); ANION GAP 8.7 (7.0-16.0); BILIRUBIN,TOTAL 0.2 mg/dL (0.3-1.0); BUN - UREA NITROGEN 17 mg/dL (7-25); CALCIUM SERUM 8.8 mg/dL (8.6-10.3); CARBON DIOXIDE 27.4 mEq/L (21.0-31.0); CHLORIDE 107 mEq/L (98-107); CREATININE - SERUM 0.5 mg/dL (0.6-1.2); GLUCOSE 103 mg/dL (70-105); POTASSIUM SERUM 4.1 mEq/L (3.5-5.1); SGOT 10 U/L (13-39); SGPT/ALT 7 U/L (7-52); SODIUM SERUM 139 mEq/L (136-145); TOTAL PROTEIN,SERUM 5.7 gm/dL (6.0-8.3)
[2017-10-28] MEDS: POLYETHYLENE GLYCOL 3350 17 GM PACK PO SCH (08:53)
[2017-10-28] MEDS: Hydrocodone/APAP 5mg/325mg Tab PO PRN ×2 (08:54→20:59)
[2017-10-28] MEDS: Escitalopram Oxalate 5 mg Tab PO SCH (08:54)
[2017-10-28] MEDS: Ferrous Sulfate 325 MG TAB PO SCH (08:54)
--- NOTE | 2017-10-28 13:14 | General Progress Note ---
Subjective - Review of Systems Service Date: 10/28/17 Subjective: I am better Objective - Results Result Diagrams: 10/28/17 07:05 10/28/17 07:05 Recent Labs: Laboratory Last Values WBC 8.0 Th/cmm (4.8-10.8) 10/28/17 07:05 RBC 3.62 Mil/cmm (3.80-5.20) L 10/28/17 07:05 Hgb 9.5 gm/dL (12-16) L 10/28/17 07:05 Hct 29.2 % (41.0-60) L 10/28/17 07:05 MCV 80.7 fl (81-100) L 10/28/17 07:05 MCH 26.2 pg (27.0-31.0) L 10/28/17 07:05 MCHC Differential 32.5 pg (28.0-36.0) 10/28/17 07:05 RDW 16.3 % (11.5-20.0) 10/28/17 07:05 Plt Count 362 Th/cmm (150-400) 10/28/17 07:05 MPV 8.2 fl 10/28/17 07:05 Neutrophils % 62.7 % (40.0-80.0) 10/28/17 07:05 Lymphocytes % 24.6 % (20.0-50.0) 10/28/17 07:05 Monocytes % 8.6 % (2.0-10.0) 10/28/17 07:05 Eosinophils % 3.4 % (0.0-5.0) 10/28/17 07:05 Basophils % 0.7 % (0.0-2.0) 10/28/17 07:05 Sodium 139 mEq/L (136-145) 10/28/17 07:05 Potassium 4.1 mEq/L (3.5-5.1) 10/28/17 07:05 Chloride 107 mEq/L (98-107) 10/28/17 07:05 Carbon Dioxide 27.4 mEq/L (21.0-31.0) 10/28/17 07:05 Anion Gap 8.7 (7.0-16.0) 10/28/17 07:05 BUN 17 mg/dL (7-25) 10/28/17 07:05 Creatinine 0.5 mg/dL (0.6-1.2) L 10/28/17 07:05 Est GFR ( Amer) TNP 10/28/17 07:05 Est GFR (Non-Af Amer) TNP 10/28/17 07:05 BUN/Creatinine Ratio 34.0 10/28/17 07:05 Glucose 103 mg/dL (70-105) 10/28/17 07:05 POC Glucose 117 MG/DL (70 - 105) H 10/20/17 22:04 Calcium 8.8 mg/dL (8.6-10.3) 10/28/17 07:05 Total Bilirubin 0.2 mg/dL (0.3-1.0) L 10/28/17 07:05 AST 10 U/L (13-39) L 10/28/17 07:05 ALT 7 U/L (7-52) 10/28/17 07:05 Alkaline Phosphatase 83 U/L (34-104) 10/28/17 07:05 Troponin I 0.02 ng/mL (0.01-0.05) 10/28/17 07:05 Total Protein 5.7 gm/dL (6.0-8.3) L 10/28/17 07:05 Albumin 3.2 gm/dL (3.7-5.3) L 10/28/17 07:05 Globulin 2.5 gm/dL 10/28/17 07:05 Albumin/Globulin Ratio 1.3 (1.0-1.8) 10/28/17 07:05 TSH 1.98 uIU/ml (0.34-5.60) 10/22/17 07:20 - Physical Exam Vitals and I&O: Vital Signs Temp 97.8 F 10/28/17 06:28 Pulse 78 10/28/17 08:54 Resp 20 10/28/17 06:28 BP 131/71 10/28/17 06:28 Pulse Ox 96 10/28/17 06:28 Intake & Output 10/27/17 10/28/17 10/28/17 18:59 06:59 18:59 Intake Total 800 360 Balance 800 360 Intake: Oral 800 120 Other 240 Other: # Voids 3 3 # Bowel Movements 2 Active Medications: Current Medications Acetaminophen (Tylenol) 650 mg PO Q6H PRN PRN Reason: Anesthesia Stop: 12/19/17 23:17 Last Admin: 10/28/17 05:24 Dose: 650 mg Acetaminophen/Hydrocodone Bitart ([place] 5mg/325mg) 1 tab PO Q4HR PRN PRN Reason: pain 4-6 Stop: 12/19/17 23:15 Last Admin: 10/28/17 08:54 Dose: 1 tab Digoxin (Lanoxin) 0.125 mg PO DAILY [facility] Stop: 12/20/17 08:59 Last Admin: 10/28/17 08:54 Dose: 0.125 mg Escitalopram Oxalate (Lexapro) 5 mg PO DAILY [facility] PRN Reason: Protocol Stop: 12/25/17 08:59 Last Admin: 10/28/17 08:54 Dose: 5 mg Ferrous Sulfate (Iron) 325 mg PO DAILY [facility] Stop: 12/27/17 08:59 Last Admin: 10/28/17 08:54 Dose: 325 mg Ibuprofen (Motrin) 600 mg PO Q6HR PRN PRN Reason: 1-3 pain Stop: 12/19/17 23:15 Last Admin: 10/24/17 16:42 Dose: 600 mg Lorazepam (Ativan) 0.5 mg PO Q4HR PRN; Protocol PRN Reason: Anxiety Stop: 11/19/17 23:08 Last Admin: 10/28/17 04:57 Dose: 0.5 mg Polyethylene Glycol (Miralax) 17 gm PO DAILY [facility] Stop: 12/20/17 08:59 Last Admin: 10/28/17 08:53 Dose: 17 gm Quetiapine Fumarate (Seroquel) 25 mg PO PRN PRN; Protocol PRN Reason: Psychosis Stop: 12/19/17 23:15 Last Admin: 10/26/17 10:40 Dose: 25 mg Zolpidem Tartrate (Ambien) 5 mg PO HS PRN PRN Reason: Insomnia Stop: 12/19/17 23:08 Last Admin: 10/26/17 21:38 Dose: 5 mg General: Alert, No acute distress HEENT: Atraumatic Neck: Supple Cardiovascular: Regular rate Lungs: Clear to auscultation Abdomen: Bowel sounds Extremities: Other (Contracture of both feet) Neurological: Other (Non ambulatory) Skin: Other (Warm ) Psych/Mental Status: Other (Confused, not oriented) Assessment/Plan - Assessment Assessment: Patient is awake, alert, calm, in no acute distress. Last hays she reported CP but all labs were normal, and she refer no more CP. Dx: increased in agitation, Anemia, S/P [place], CHF, CAD, HTN. - Plan Plan: She is follow by Psychiatry, will continue SNF meds, Will continue to monitor. Nutritional Asmnt/Malnutr-PDOC - Dietary Evaluation Malnutrition Findings (Please click <Entered> for more info): Nutritional Asmnt/Malnutrition Start: 10/22/17 15: 22 Text: Status: Complete Freq: Document 10/22/17 15:22 HENG (Rec: 10/22/17 15:53 [email or web address]) Nutritional Asmnt/Malnutrition Patient General Information Nutritional Screening High Risk Consult Diagnosis psychosis Pertinent Medical Hx/Surgical Hx CAD, HTN, CHF, [place], stiffness, limited movement of lower extremities, contracture of loer extremities Subjective Information rPt seen lying in bed at time of visit, angry about her food . Pt refused to eat pureed food. Pt has partial teeth noted. height in recorde is 13ft, possible not correct. RN made aware. Pt appeared thin. Current Diet Order/ Nutrition Support pureed Pertinent Medications seroquel Pertinent Labs 10/22 Cr 0.5, glucose 95, POC 117 Nutritional Hx/Data Current Weight (lbs) 47.627 kg Weight (Calculated Kilograms) 47.6 Weight (Calculated Grams) 01784.2 GI Symptoms GI Symptoms Constipation Difficult in: None Usual diet at home pt stated she eat regular food and cut into pieces by herself. Skin Integrity/Comment: intact Current %PO Negligible < 25% Estimated Nutritional Goals BEE in Kcals: Using Current wt Calories/Kcals/Kg 25-30 Kcals Calculated 9128-0398 Protein: Using Current wt Protein g/k-1.2 Protein Calculated 48-58 Nutritional Problem 1. Problem Problem inadequate food intake Etiology pt refusing pureed food Signs/Symptoms: PO intake <25% Malnutrition Alert Body Fat Depletion (Non-Severe) Mild Depletion Protein-Calorie Malnutrition N/A Is there a minimum of two criteria No selected? Query Text:Check all the applicable criteria. A minimum of two criteria are recommended for diagnosis of either severe or non-severe malnutrition. Intervention/Recommendation Comments 1. Recommend swallow eval for pt. If there is no chewing/ swallowing probelm, will ask MD to change diet order. RN Ronald made aware. Also RN will correct pt heigh in EMR. 2. Monitor PO intake, wt, labs and skin integrity 3. F/U as high risk in 2-3 days, 10/24-10/25 Expected Outcomes/Goals Expected Outcomes/Goals 1. PO intake to meet at least 75% of nutritional needs. 2. Wt stability, skin to remain intact, labs to approach WNL.
--- NOTE | 2017-10-29 08:59 | General Progress Note ---
Subjective - Review of Systems Service Date: 10/29/17 Subjective: I am better Objective - Results Result Diagrams: 10/28/17 07:05 10/28/17 07:05 Recent Labs: Laboratory Last Values WBC 8.0 Th/cmm (4.8-10.8) 10/28/17 07:05 RBC 3.62 Mil/cmm (3.80-5.20) L 10/28/17 07:05 Hgb 9.5 gm/dL (12-16) L 10/28/17 07:05 Hct 29.2 % (41.0-60) L 10/28/17 07:05 MCV 80.7 fl (81-100) L 10/28/17 07:05 MCH 26.2 pg (27.0-31.0) L 10/28/17 07:05 MCHC Differential 32.5 pg (28.0-36.0) 10/28/17 07:05 RDW 16.3 % (11.5-20.0) 10/28/17 07:05 Plt Count 362 Th/cmm (150-400) 10/28/17 07:05 MPV 8.2 fl 10/28/17 07:05 Neutrophils % 62.7 % (40.0-80.0) 10/28/17 07:05 Lymphocytes % 24.6 % (20.0-50.0) 10/28/17 07:05 Monocytes % 8.6 % (2.0-10.0) 10/28/17 07:05 Eosinophils % 3.4 % (0.0-5.0) 10/28/17 07:05 Basophils % 0.7 % (0.0-2.0) 10/28/17 07:05 Sodium 139 mEq/L (136-145) 10/28/17 07:05 Potassium 4.1 mEq/L (3.5-5.1) 10/28/17 07:05 Chloride 107 mEq/L (98-107) 10/28/17 07:05 Carbon Dioxide 27.4 mEq/L (21.0-31.0) 10/28/17 07:05 Anion Gap 8.7 (7.0-16.0) 10/28/17 07:05 BUN 17 mg/dL (7-25) 10/28/17 07:05 Creatinine 0.5 mg/dL (0.6-1.2) L 10/28/17 07:05 Est GFR ( Amer) TNP 10/28/17 07:05 Est GFR (Non-Af Amer) TNP 10/28/17 07:05 BUN/Creatinine Ratio 34.0 10/28/17 07:05 Glucose 103 mg/dL (70-105) 10/28/17 07:05 POC Glucose 117 MG/DL (70 - 105) H 10/20/17 22:04 Calcium 8.8 mg/dL (8.6-10.3) 10/28/17 07:05 Total Bilirubin 0.2 mg/dL (0.3-1.0) L 10/28/17 07:05 AST 10 U/L (13-39) L 10/28/17 07:05 ALT 7 U/L (7-52) 10/28/17 07:05 Alkaline Phosphatase 83 U/L (34-104) 10/28/17 07:05 Troponin I 0.02 ng/mL (0.01-0.05) 10/28/17 07:05 Total Protein 5.7 gm/dL (6.0-8.3) L 10/28/17 07:05 Albumin 3.2 gm/dL (3.7-5.3) L 10/28/17 07:05 Globulin 2.5 gm/dL 10/28/17 07:05 Albumin/Globulin Ratio 1.3 (1.0-1.8) 10/28/17 07:05 TSH 1.98 uIU/ml (0.34-5.60) 10/22/17 07:20 - Physical Exam Vitals and I&O: Vital Signs Temp 98.3 F 10/29/17 06:56 Pulse 64 10/29/17 06:56 Resp 18 10/29/17 06:56 BP 122/61 10/29/17 06:56 Pulse Ox 96 10/29/17 06:56 Intake & Output 10/28/17 10/29/17 10/29/17 18:59 06:59 18:59 Intake Total 750 120 Balance 750 120 Intake: Oral 750 120 Other: # Voids 3 3 Active Medications: Current Medications Acetaminophen (Tylenol) 650 mg PO Q6H PRN PRN Reason: Anesthesia Stop: 12/19/17 23:17 Last Admin: 10/28/17 05:24 Dose: 650 mg Acetaminophen/Hydrocodone Bitart ([place] 5mg/325mg) 1 tab PO Q4HR PRN PRN Reason: pain 4-6 Stop: 12/19/17 23:15 Last Admin: 10/28/17 20:59 Dose: 1 tab Digoxin (Lanoxin) 0.125 mg PO DAILY [facility] Stop: 12/20/17 08:59 Last Admin: 10/28/17 08:54 Dose: 0.125 mg Escitalopram Oxalate (Lexapro) 5 mg PO DAILY [facility] PRN Reason: Protocol Stop: 12/25/17 08:59 Last Admin: 10/28/17 08:54 Dose: 5 mg Ferrous Sulfate (Iron) 325 mg PO DAILY [facility] Stop: 12/27/17 08:59 Last Admin: 10/28/17 08:54 Dose: 325 mg Ibuprofen (Motrin) 600 mg PO Q6HR PRN PRN Reason: 1-3 pain Stop: 12/19/17 23:15 Last Admin: 10/24/17 16:42 Dose: 600 mg Lorazepam (Ativan) 0.5 mg PO Q4HR PRN; Protocol PRN Reason: Anxiety Stop: 11/19/17 23:08 Last Admin: 10/28/17 04:57 Dose: 0.5 mg Polyethylene Glycol (Miralax) 17 gm PO DAILY [facility] Stop: 12/20/17 08:59 Last Admin: 10/28/17 08:53 Dose: 17 gm Quetiapine Fumarate (Seroquel) 25 mg PO PRN PRN; Protocol PRN Reason: Psychosis Stop: 12/19/17 23:15 Last Admin: 10/26/17 10:40 Dose: 25 mg Zolpidem Tartrate (Ambien) 5 mg PO HS PRN PRN Reason: Insomnia Stop: 12/19/17 23:08 Last Admin: 10/28/17 20:59 Dose: 5 mg General: Alert, No acute distress HEENT: Atraumatic Neck: Supple Cardiovascular: Regular rate Lungs: Clear to auscultation Abdomen: Bowel sounds Extremities: Other (Contracture of both feet) Neurological: Other (Non ambulatory) Skin: Other (Warm ) Psych/Mental Status: Other (Confused, not oriented) Assessment/Plan - Assessment Assessment: Patient is awake, alert, calm, in no acute distress. Last hays she reported CP but all labs were normal, and she refer no more CP. Dx: increased in agitation, Anemia, S/P [place], CHF, CAD, HTN. - Plan Plan: She is follow by Psychiatry, will continue SNF meds, Will continue to monitor. Nutritional Asmnt/Malnutr-PDOC - Dietary Evaluation Malnutrition Findings (Please click <Entered> for more info): Nutritional Asmnt/Malnutrition Start: 10/22/17 15: 22 Text: Status: Complete Freq: Document 10/22/17 15:22 [facility] (Rec: 10/22/17 15:53 [email or web address]) Nutritional Asmnt/Malnutrition Patient General Information Nutritional Screening High Risk Consult Diagnosis psychosis Pertinent Medical Hx/Surgical Hx CAD, HTN, CHF, [place], stiffness, limited movement of lower extremities, contracture of loer extremities Subjective Information rPt seen lying in bed at time of visit, angry about her food . Pt refused to eat pureed food. Pt has partial teeth noted. height in recorde is 13ft, possible not correct. RN made aware. Pt appeared thin. Current Diet Order/ Nutrition Support pureed Pertinent Medications seroquel Pertinent Labs 10/22 Cr 0.5, glucose 95, POC 117 Nutritional Hx/Data Current Weight (lbs) 47.627 kg Weight (Calculated Kilograms) 47.6 Weight (Calculated Grams) 69506.2 GI Symptoms GI Symptoms Constipation Difficult in: None Usual diet at home pt stated she eat regular food and cut into pieces by herself. Skin Integrity/Comment: intact Current %PO Negligible < 25% Estimated Nutritional Goals BEE in Kcals: Using Current wt Calories/Kcals/Kg 25-30 Kcals Calculated 9394-3891 Protein: Using Current wt Protein g/k-1.2 Protein Calculated 48-58 Nutritional Problem 1. Problem Problem inadequate food intake Etiology pt refusing pureed food Signs/Symptoms: PO intake <25% Malnutrition Alert Body Fat Depletion (Non-Severe) Mild Depletion Protein-Calorie Malnutrition N/A Is there a minimum of two criteria No selected? Query Text:Check all the applicable criteria. A minimum of two criteria are recommended for diagnosis of either severe or non-severe malnutrition. Intervention/Recommendation Comments 1. Recommend swallow eval for pt. If there is no chewing/ swallowing probelm, will ask MD to change diet order. RN Coyee made aware. Also RN will correct pt heigh in EMR. 2. Monitor PO intake, wt, labs and skin integrity 3. F/U as high risk in 2-3 days, 10/24-10/25 Expected Outcomes/Goals Expected Outcomes/Goals 1. PO intake to meet at least 75% of nutritional needs. 2. Wt stability, skin to remain intact, labs to approach WNL.
[2017-10-29] MEDS: POLYETHYLENE GLYCOL 3350 17 GM PACK PO SCH (09:00)
[2017-10-29] MEDS: Ferrous Sulfate 325 MG TAB PO SCH (09:00)
[2017-10-29] MEDS: Escitalopram Oxalate 5 mg Tab PO SCH (09:00)
--- NOTE | 2017-10-29 17:32 | Progress Notes ---
DATE: 10/29/2017 The patient remains isolative. Poor insight, still has screaming out episodes yelling episodes, still unruly, confusion noted. Concerns for her ability to care for herself. Sleeping fairly well. Some entertainment musician awakenings, eating with prompting, some family involvement noted. MEDICATIONS: Reviewed. ASSESSMENT: The patient remains unruly, anxious, still with screaming episodes, yelling episodes, ongoing confusional periods. however, calmer vs admission, more amenable to interview keeps repeating "I want to go home" PLAN: We will continue to monitor, continue to adjust medications and treat on an inpatient basis. JOB# [id number] WADE
--- NOTE | 2017-10-29 17:35 | Progress Notes ---
DATE: 10/28/2017 SUBJECTIVE: The patient remains aggressive, still with screaming episodes, but some improvement noted and generally calmer since admission, but still unruly highly impulsive and unpredictable. Fair sleep, needing prompting. Remains isolative, still anxious, ongoing concerns about her ability to care for herself at a lower level of care, ongoing concerns of ability for her to be cared for at a lower level of care. ASSESSMENT: The patient remains unruly still with yelling and screaming episodes, but less. PLAN: We will continue to monitor. We will coordinate care with social work regarding safe discharge plan and good psychiatric followup. JOB# [id number]
--- NOTE | 2017-10-30 08:38 | General Progress Note ---
Subjective - Review of Systems Service Date: 10/30/17 Subjective: I am better Objective - Results Result Diagrams: 10/28/17 07:05 10/28/17 07:05 Recent Labs: Laboratory Last Values WBC 8.0 Th/cmm (4.8-10.8) 10/28/17 07:05 RBC 3.62 Mil/cmm (3.80-5.20) L 10/28/17 07:05 Hgb 9.5 gm/dL (12-16) L 10/28/17 07:05 Hct 29.2 % (41.0-60) L 10/28/17 07:05 MCV 80.7 fl (81-100) L 10/28/17 07:05 MCH 26.2 pg (27.0-31.0) L 10/28/17 07:05 MCHC Differential 32.5 pg (28.0-36.0) 10/28/17 07:05 RDW 16.3 % (11.5-20.0) 10/28/17 07:05 Plt Count 362 Th/cmm (150-400) 10/28/17 07:05 MPV 8.2 fl 10/28/17 07:05 Neutrophils % 62.7 % (40.0-80.0) 10/28/17 07:05 Lymphocytes % 24.6 % (20.0-50.0) 10/28/17 07:05 Monocytes % 8.6 % (2.0-10.0) 10/28/17 07:05 Eosinophils % 3.4 % (0.0-5.0) 10/28/17 07:05 Basophils % 0.7 % (0.0-2.0) 10/28/17 07:05 Sodium 139 mEq/L (136-145) 10/28/17 07:05 Potassium 4.1 mEq/L (3.5-5.1) 10/28/17 07:05 Chloride 107 mEq/L (98-107) 10/28/17 07:05 Carbon Dioxide 27.4 mEq/L (21.0-31.0) 10/28/17 07:05 Anion Gap 8.7 (7.0-16.0) 10/28/17 07:05 BUN 17 mg/dL (7-25) 10/28/17 07:05 Creatinine 0.5 mg/dL (0.6-1.2) L 10/28/17 07:05 Est GFR ( Amer) TNP 10/28/17 07:05 Est GFR (Non-Af Amer) TNP 10/28/17 07:05 BUN/Creatinine Ratio 34.0 10/28/17 07:05 Glucose 103 mg/dL (70-105) 10/28/17 07:05 POC Glucose 117 MG/DL (70 - 105) H 10/20/17 22:04 Calcium 8.8 mg/dL (8.6-10.3) 10/28/17 07:05 Total Bilirubin 0.2 mg/dL (0.3-1.0) L 10/28/17 07:05 AST 10 U/L (13-39) L 10/28/17 07:05 ALT 7 U/L (7-52) 10/28/17 07:05 Alkaline Phosphatase 83 U/L (34-104) 10/28/17 07:05 Troponin I 0.02 ng/mL (0.01-0.05) 10/28/17 07:05 Total Protein 5.7 gm/dL (6.0-8.3) L 10/28/17 07:05 Albumin 3.2 gm/dL (3.7-5.3) L 10/28/17 07:05 Globulin 2.5 gm/dL 10/28/17 07:05 Albumin/Globulin Ratio 1.3 (1.0-1.8) 10/28/17 07:05 TSH 1.98 uIU/ml (0.34-5.60) 10/22/17 07:20 - Physical Exam Vitals and I&O: Vital Signs Temp 98.4 F 10/30/17 06:32 Pulse 69 10/30/17 06:32 Resp 20 10/30/17 06:32 BP 121/60 10/30/17 06:32 Pulse Ox 96 10/30/17 06:32 Intake & Output 10/29/17 10/30/17 10/30/17 18:59 06:59 18:59 Intake Total 800 250 Balance 800 250 Intake: Oral 800 250 Other: # Voids 3 3 # Bowel Movements 6 1 Active Medications: Current Medications Acetaminophen (Tylenol) 650 mg PO Q6H PRN PRN Reason: Anesthesia Stop: 12/19/17 23:17 Last Admin: 10/29/17 22:21 Dose: 650 mg Acetaminophen/Hydrocodone Bitart ([place] 5mg/325mg) 1 tab PO Q4HR PRN PRN Reason: pain 4-6 Stop: 12/19/17 23:15 Last Admin: 10/28/17 20:59 Dose: 1 tab Digoxin (Lanoxin) 0.125 mg PO DAILY [facility] Stop: 12/20/17 08:59 Last Admin: 10/29/17 09:00 Dose: 0.125 mg Escitalopram Oxalate (Lexapro) 5 mg PO DAILY [facility] PRN Reason: Protocol Stop: 12/25/17 08:59 Last Admin: 10/29/17 09:00 Dose: 5 mg Ferrous Sulfate (Iron) 325 mg PO DAILY [facility] Stop: 12/27/17 08:59 Last Admin: 10/29/17 09:00 Dose: 325 mg Ibuprofen (Motrin) 600 mg PO Q6HR PRN PRN Reason: 1-3 pain Stop: 12/19/17 23:15 Last Admin: 10/24/17 16:42 Dose: 600 mg Lorazepam (Ativan) 0.5 mg PO Q4HR PRN; Protocol PRN Reason: Anxiety Stop: 11/19/17 23:08 Last Admin: 10/28/17 04:57 Dose: 0.5 mg Polyethylene Glycol (Miralax) 17 gm PO DAILY [facility] Stop: 12/20/17 08:59 Last Admin: 10/29/17 09:00 Dose: 17 gm Quetiapine Fumarate (Seroquel) 25 mg PO PRN PRN; Protocol PRN Reason: Psychosis Stop: 12/19/17 23:15 Last Admin: 10/26/17 10:40 Dose: 25 mg Zolpidem Tartrate (Ambien) 5 mg PO HS PRN PRN Reason: Insomnia Stop: 12/19/17 23:08 Last Admin: 10/28/17 20:59 Dose: 5 mg General: Alert, No acute distress HEENT: Atraumatic Neck: Supple Cardiovascular: Regular rate Lungs: Clear to auscultation Abdomen: Bowel sounds Extremities: Other (Contracture of both feet) Neurological: Other (Non ambulatory) Skin: Other (Warm ) Psych/Mental Status: Other (Confused, not oriented) Assessment/Plan - Assessment Assessment: Patient is awake, alert, calm, in no acute distress. Dx: increased in agitation , Anemia, S/P [place], CHF, CAD, HTN. - Plan Plan: She is follow by Psychiatry, will continue SNF meds, Will continue to monitor. Nutritional Asmnt/Malnutr-PDOC - Dietary Evaluation Malnutrition Findings (Please click <Entered> for more info): Nutritional Asmnt/Malnutrition Start: 10/22/17 15: 22 Text: Status: Complete Freq: Document 10/22/17 15:22 [facility] (Rec: 10/22/17 15:53 [facility] [email or web address]) Nutritional Asmnt/Malnutrition Patient General Information Nutritional Screening High Risk Consult Diagnosis psychosis Pertinent Medical Hx/Surgical Hx CAD, HTN, CHF, [place], stiffness, limited movement of lower extremities, contracture of loer extremities Subjective Information rPt seen lying in bed at time of visit, angry about her food . Pt refused to eat pureed food. Pt has partial teeth noted. height in recorde is 13ft, possible not correct. RN made aware. Pt appeared thin. Current Diet Order/ Nutrition Support pureed Pertinent Medications seroquel Pertinent Labs 10/22 Cr 0.5, glucose 95, POC 117 Nutritional Hx/Data Current Weight (lbs) 47.627 kg Weight (Calculated Kilograms) 47.6 Weight (Calculated Grams) 24938.2 GI Symptoms GI Symptoms Constipation Difficult in: None Usual diet at home pt stated she eat regular food and cut into pieces by herself. Skin Integrity/Comment: intact Current %PO Negligible < 25% Estimated Nutritional Goals BEE in Kcals: Using Current wt Calories/Kcals/Kg 25-30 Kcals Calculated 2505-3052 Protein: Using Current wt Protein g/k-1.2 Protein Calculated 48-58 Nutritional Problem 1. Problem Problem inadequate food intake Etiology pt refusing pureed food Signs/Symptoms: PO intake <25% Malnutrition Alert Body Fat Depletion (Non-Severe) Mild Depletion Protein-Calorie Malnutrition N/A Is there a minimum of two criteria No selected? Query Text:Check all the applicable criteria. A minimum of two criteria are recommended for diagnosis of either severe or non-severe malnutrition. Intervention/Recommendation Comments 1. Recommend swallow eval for pt. If there is no chewing/ swallowing probelm, will ask MD to change diet order. ELIAS Cardenas made aware. Also RN will correct pt heigh in EMR. 2. Monitor PO intake, wt, labs and skin integrity 3. F/U as high risk in 2-3 days, 10/24-10/25 Expected Outcomes/Goals Expected Outcomes/Goals 1. PO intake to meet at least 75% of nutritional needs. 2. Wt stability, skin to remain intact, labs to approach WNL.
[2017-10-30] MEDS: POLYETHYLENE GLYCOL 3350 17 GM PACK PO SCH (08:58)
[2017-10-30] MEDS: Escitalopram Oxalate 5 mg Tab PO SCH (08:58)
[2017-10-30] MEDS: Ferrous Sulfate 325 MG TAB PO SCH (08:58)
--- NOTE | 2017-10-31 04:05 | Progress Notes ---
DATE: 10/30/2017 SUBJECTIVE: She remains with somewhat unruly. Still repeats that she wants to go home, she wants to go home. She was complaining of chest pain. EKG was negative, apparent history of fracture in the past. The patient believes that she can live on her own, but she is not really able to care for herself and has bouts of confusion, yelling and screaming episodes requiring a higher level of care, likely at this time not the capacity to be involved in disposition planning, seems to lack the insight that she needs help, seems to lack insight about her confusional periods and episodes. The patient attested depression. No SI. We are trying to help her with placement. Medications were noted. ASSESSMENT: The patient with ongoing yelling and screaming episodes, but becoming infrequent. She is still with some bouts of confusion. Lexapro seems to be helping to calm her down. Per nursing notes, the patient with some ongoing confusional episodes, poor orientation, suspicious at times. Vitals were reviewed. Staff noting she remains quite forgetful, demanding, resistant to care. PLAN: We will reach out to family. There are ongoing concerns about her ability to care for herself. JOB# [id number]
[2017-10-31] MEDS: Escitalopram Oxalate 5 mg Tab PO SCH (08:33)
[2017-10-31] MEDS: Ferrous Sulfate 325 MG TAB PO SCH (08:33)
[2017-10-31] MEDS: POLYETHYLENE GLYCOL 3350 17 GM PACK PO SCH (08:33)
--- NOTE | 2017-10-31 10:20 | General Progress Note ---
Subjective - Review of Systems Service Date: 10/31/17 Subjective: I am better Objective - Results Result Diagrams: 10/28/17 07:05 10/28/17 07:05 Recent Labs: Laboratory Last Values WBC 8.0 Th/cmm (4.8-10.8) 10/28/17 07:05 RBC 3.62 Mil/cmm (3.80-5.20) L 10/28/17 07:05 Hgb 9.5 gm/dL (12-16) L 10/28/17 07:05 Hct 29.2 % (41.0-60) L 10/28/17 07:05 MCV 80.7 fl (81-100) L 10/28/17 07:05 MCH 26.2 pg (27.0-31.0) L 10/28/17 07:05 MCHC Differential 32.5 pg (28.0-36.0) 10/28/17 07:05 RDW 16.3 % (11.5-20.0) 10/28/17 07:05 Plt Count 362 Th/cmm (150-400) 10/28/17 07:05 MPV 8.2 fl 10/28/17 07:05 Neutrophils % 62.7 % (40.0-80.0) 10/28/17 07:05 Lymphocytes % 24.6 % (20.0-50.0) 10/28/17 07:05 Monocytes % 8.6 % (2.0-10.0) 10/28/17 07:05 Eosinophils % 3.4 % (0.0-5.0) 10/28/17 07:05 Basophils % 0.7 % (0.0-2.0) 10/28/17 07:05 Sodium 139 mEq/L (136-145) 10/28/17 07:05 Potassium 4.1 mEq/L (3.5-5.1) 10/28/17 07:05 Chloride 107 mEq/L (98-107) 10/28/17 07:05 Carbon Dioxide 27.4 mEq/L (21.0-31.0) 10/28/17 07:05 Anion Gap 8.7 (7.0-16.0) 10/28/17 07:05 BUN 17 mg/dL (7-25) 10/28/17 07:05 Creatinine 0.5 mg/dL (0.6-1.2) L 10/28/17 07:05 Est GFR ( Amer) TNP 10/28/17 07:05 Est GFR (Non-Af Amer) TNP 10/28/17 07:05 BUN/Creatinine Ratio 34.0 10/28/17 07:05 Glucose 103 mg/dL (70-105) 10/28/17 07:05 POC Glucose 117 MG/DL (70 - 105) H 10/20/17 22:04 Calcium 8.8 mg/dL (8.6-10.3) 10/28/17 07:05 Total Bilirubin 0.2 mg/dL (0.3-1.0) L 10/28/17 07:05 AST 10 U/L (13-39) L 10/28/17 07:05 ALT 7 U/L (7-52) 10/28/17 07:05 Alkaline Phosphatase 83 U/L (34-104) 10/28/17 07:05 Troponin I 0.02 ng/mL (0.01-0.05) 10/28/17 07:05 Total Protein 5.7 gm/dL (6.0-8.3) L 10/28/17 07:05 Albumin 3.2 gm/dL (3.7-5.3) L 10/28/17 07:05 Globulin 2.5 gm/dL 10/28/17 07:05 Albumin/Globulin Ratio 1.3 (1.0-1.8) 10/28/17 07:05 TSH 1.98 uIU/ml (0.34-5.60) 10/22/17 07:20 - Physical Exam Vitals and I&O: Vital Signs Temp 97.8 F 10/30/17 14:00 Pulse 71 10/31/17 08:33 Resp 18 10/30/17 14:00 BP 137/58 10/30/17 14:00 Pulse Ox 97 10/30/17 14:00 Intake & Output 10/30/17 10/31/17 10/31/17 18:59 06:59 18:59 Intake Total 700 Balance 700 Intake: Oral 700 Other: # Voids 3 # Bowel Movements 1 Active Medications: Current Medications Acetaminophen (Tylenol) 650 mg PO Q6H PRN PRN Reason: Anesthesia Stop: 12/19/17 23:17 Last Admin: 10/30/17 23:54 Dose: 650 mg Acetaminophen/Hydrocodone Bitart ([place] 5mg/325mg) 1 tab PO Q4HR PRN PRN Reason: pain 4-6 Stop: 12/19/17 23:15 Last Admin: 10/28/17 20:59 Dose: 1 tab Digoxin (Lanoxin) 0.125 mg PO DAILY [facility] Stop: 12/20/17 08:59 Last Admin: 10/31/17 08:33 Dose: 0.125 mg Escitalopram Oxalate (Lexapro) 5 mg PO DAILY [facility] PRN Reason: Protocol Stop: 12/25/17 08:59 Last Admin: 10/31/17 08:33 Dose: 5 mg Ferrous Sulfate (Iron) 325 mg PO DAILY [facility] Stop: 12/27/17 08:59 Last Admin: 10/31/17 08:33 Dose: 325 mg Ibuprofen (Motrin) 600 mg PO Q6HR PRN PRN Reason: 1-3 pain Stop: 12/19/17 23:15 Last Admin: 10/30/17 18:16 Dose: 600 mg Lorazepam (Ativan) 0.5 mg PO Q4HR PRN; Protocol PRN Reason: Anxiety Stop: 11/19/17 23:08 Last Admin: 10/30/17 23:54 Dose: 0.5 mg Polyethylene Glycol (Miralax) 17 gm PO DAILY [facility] Stop: 12/20/17 08:59 Last Admin: 10/31/17 08:33 Dose: 17 gm Quetiapine Fumarate (Seroquel) 25 mg PO PRN PRN; Protocol PRN Reason: Psychosis Stop: 12/19/17 23:15 Last Admin: 10/26/17 10:40 Dose: 25 mg Zolpidem Tartrate (Ambien) 5 mg PO HS PRN PRN Reason: Insomnia Stop: 12/19/17 23:08 Last Admin: 10/30/17 23:54 Dose: 5 mg General: Alert, No acute distress HEENT: Atraumatic Neck: Supple Cardiovascular: Regular rate Lungs: Clear to auscultation Abdomen: Bowel sounds Extremities: Other (Contracture of both feet) Neurological: Other (Non ambulatory) Skin: Other (Warm ) Psych/Mental Status: Other (Confused, not oriented) Assessment/Plan - Assessment Assessment: Patient is awake, alert, calm, in no acute distress. Dx: increased in agitation , Anemia, S/P [place], CHF, CAD, HTN. - Plan Plan: She is follow by Psychiatry, will continue SNF meds, Will continue to monitor. Nutritional Asmnt/Malnutr-PDOC - Dietary Evaluation Malnutrition Findings (Please click <Entered> for more info): Nutritional Asmnt/Malnutrition Start: 10/22/17 15: 22 Text: Status: Complete Freq: Document 10/22/17 15:22 [facility] (Rec: 10/22/17 15:53 [facility] [email or web address]) Nutritional Asmnt/Malnutrition Patient General Information Nutritional Screening High Risk Consult Diagnosis psychosis Pertinent Medical Hx/Surgical Hx CAD, HTN, CHF, [place], stiffness, limited movement of lower extremities, contracture of loer extremities Subjective Information rPt seen lying in bed at time of visit, angry about her food . Pt refused to eat pureed food. Pt has partial teeth noted. height in recorde is 13ft, possible not correct. RN made aware. Pt appeared thin. Current Diet Order/ Nutrition Support pureed Pertinent Medications seroquel Pertinent Labs 10/22 Cr 0.5, glucose 95, POC 117 Nutritional Hx/Data Current Weight (lbs) 47.627 kg Weight (Calculated Kilograms) 47.6 Weight (Calculated Grams) 65308.2 GI Symptoms GI Symptoms Constipation Difficult in: None Usual diet at home pt stated she eat regular food and cut into pieces by herself. Skin Integrity/Comment: intact Current %PO Negligible < 25% Estimated Nutritional Goals BEE in Kcals: Using Current wt Calories/Kcals/Kg 25-30 Kcals Calculated 0809-7494 Protein: Using Current wt Protein g/k-1.2 Protein Calculated 48-58 Nutritional Problem 1. Problem Problem inadequate food intake Etiology pt refusing pureed food Signs/Symptoms: PO intake <25% Malnutrition Alert Body Fat Depletion (Non-Severe) Mild Depletion Protein-Calorie Malnutrition N/A Is there a minimum of two criteria No selected? Query Text:Check all the applicable criteria. A minimum of two criteria are recommended for diagnosis of either severe or non-severe malnutrition. Intervention/Recommendation Comments 1. Recommend swallow eval for pt. If there is no chewing/ swallowing probelm, will ask MD to change diet order. ELIAS Cardenas made aware. Also RN will correct pt heigh in EMR. 2. Monitor PO intake, wt, labs and skin integrity 3. F/U as high risk in 2-3 days, 10/24-10/25 Expected Outcomes/Goals Expected Outcomes/Goals 1. PO intake to meet at least 75% of nutritional needs. 2. Wt stability, skin to remain intact, labs to approach WNL.
--- NOTE | 2017-10-31 21:49 | Progress Notes ---
DATE: 10/31/2017 SUBJECTIVE: The patient stating that she wants to leave the hospital, but we have nowhere to send her to. She is somewhat confused, states the year is 2047, states that the month is October or November and then states "I am pretty sure it is October." She knows the day of the week is Thursday. She has no idea what city she is in. She is really not quite sure why she is in the hospital. She believes that she can live alone, although she tells me that she has poor vision, poor hearing and cannot walk and has pain. The patient with screaming episodes, but lesser. Her behaviors are calming down, but her insight remains quite poor and staff noting ongoing confusional periods. Sleeping fairly well. The patient with air quality consultant awakenings. Medications were noted. ASSESSMENT: The patient remains symptomatic, still concerns for safety, still with behavioral disturbances, but lessening. She did contact family yesterday and left a voice message. [facility]# [id number] [id number]
[2017-11-01] MEDS: Ferrous Sulfate 325 MG TAB PO SCH (08:50)
[2017-11-01] MEDS: Escitalopram Oxalate 5 mg Tab PO SCH (08:50)
[2017-11-01] MEDS: POLYETHYLENE GLYCOL 3350 17 GM PACK PO SCH (08:51)
--- NOTE | 2017-11-01 21:35 | Progress Notes ---
DATE: 11/01/2017 SUBJECTIVE: The patient still states that she wants to go home. States she can live alone, although she is incontinent. She cannot walk. There is apparently no one to take care of her. "I'll be fine." Concerns for ability to care for her basic needs. Still with some bouts of yelling. Staff noting poor orientation, confusion, anxiety, yelling episodes, still unruly at times. Eating with some prompting. ASSESSMENT: The patient remains symptomatic. Ongoing safety concerns. Concerns for grave disability. PLAN: We will continue to monitor and follow up. I did reach out to family the other day, left a voice message. We are trying to help her with placement. [facility]# [phone] [id number]
--- NOTE | 2017-11-02 08:51 | General Progress Note ---
Subjective - Review of Systems Service Date: 11/02/17 Subjective: I am better Objective - Results Result Diagrams: 10/28/17 07:05 10/28/17 07:05 Recent Labs: Laboratory Last Values WBC 8.0 Th/cmm (4.8-10.8) 10/28/17 07:05 RBC 3.62 Mil/cmm (3.80-5.20) L 10/28/17 07:05 Hgb 9.5 gm/dL (12-16) L 10/28/17 07:05 Hct 29.2 % (41.0-60) L 10/28/17 07:05 MCV 80.7 fl (81-100) L 10/28/17 07:05 MCH 26.2 pg (27.0-31.0) L 10/28/17 07:05 MCHC Differential 32.5 pg (28.0-36.0) 10/28/17 07:05 RDW 16.3 % (11.5-20.0) 10/28/17 07:05 Plt Count 362 Th/cmm (150-400) 10/28/17 07:05 MPV 8.2 fl 10/28/17 07:05 Neutrophils % 62.7 % (40.0-80.0) 10/28/17 07:05 Lymphocytes % 24.6 % (20.0-50.0) 10/28/17 07:05 Monocytes % 8.6 % (2.0-10.0) 10/28/17 07:05 Eosinophils % 3.4 % (0.0-5.0) 10/28/17 07:05 Basophils % 0.7 % (0.0-2.0) 10/28/17 07:05 Sodium 139 mEq/L (136-145) 10/28/17 07:05 Potassium 4.1 mEq/L (3.5-5.1) 10/28/17 07:05 Chloride 107 mEq/L (98-107) 10/28/17 07:05 Carbon Dioxide 27.4 mEq/L (21.0-31.0) 10/28/17 07:05 Anion Gap 8.7 (7.0-16.0) 10/28/17 07:05 BUN 17 mg/dL (7-25) 10/28/17 07:05 Creatinine 0.5 mg/dL (0.6-1.2) L 10/28/17 07:05 Est GFR ( Amer) TNP 10/28/17 07:05 Est GFR (Non-Af Amer) TNP 10/28/17 07:05 BUN/Creatinine Ratio 34.0 10/28/17 07:05 Glucose 103 mg/dL (70-105) 10/28/17 07:05 POC Glucose 117 MG/DL (70 - 105) H 10/20/17 22:04 Calcium 8.8 mg/dL (8.6-10.3) 10/28/17 07:05 Total Bilirubin 0.2 mg/dL (0.3-1.0) L 10/28/17 07:05 AST 10 U/L (13-39) L 10/28/17 07:05 ALT 7 U/L (7-52) 10/28/17 07:05 Alkaline Phosphatase 83 U/L (34-104) 10/28/17 07:05 Troponin I 0.02 ng/mL (0.01-0.05) 10/28/17 07:05 Total Protein 5.7 gm/dL (6.0-8.3) L 10/28/17 07:05 Albumin 3.2 gm/dL (3.7-5.3) L 10/28/17 07:05 Globulin 2.5 gm/dL 10/28/17 07:05 Albumin/Globulin Ratio 1.3 (1.0-1.8) 10/28/17 07:05 TSH 1.98 uIU/ml (0.34-5.60) 10/22/17 07:20 - Physical Exam Vitals and I&O: Vital Signs Temp 97.5 F 11/02/17 06:02 Pulse 65 11/02/17 06:02 Resp 18 11/02/17 06:02 BP 128/73 11/02/17 06:02 Pulse Ox 97 11/02/17 06:02 Intake & Output 11/01/17 11/02/17 11/02/17 18:59 06:59 18:59 Intake Total 1200 120 Balance 1200 120 Intake: Oral 1200 120 Other: # Voids 4 1 # Bowel Movements 1 1 Active Medications: Current Medications Acetaminophen (Tylenol) 650 mg PO Q6H PRN PRN Reason: Anesthesia Stop: 12/19/17 23:17 Last Admin: 10/31/17 21:37 Dose: 650 mg Acetaminophen/Hydrocodone Bitart ([place] 5mg/325mg) 1 tab PO Q4HR PRN PRN Reason: pain 4-6 Stop: 12/19/17 23:15 Last Admin: 10/28/17 20:59 Dose: 1 tab Digoxin (Lanoxin) 0.125 mg PO DAILY [facility] Stop: 12/20/17 08:59 Last Admin: 11/01/17 08:50 Dose: 0.125 mg Escitalopram Oxalate (Lexapro) 5 mg PO DAILY [facility] PRN Reason: Protocol Stop: 12/25/17 08:59 Last Admin: 11/01/17 08:50 Dose: 5 mg Ferrous Sulfate (Iron) 325 mg PO DAILY [facility] Stop: 12/27/17 08:59 Last Admin: 11/01/17 08:50 Dose: 325 mg Ibuprofen (Motrin) 600 mg PO Q6HR PRN PRN Reason: 1-3 pain Stop: 12/19/17 23:15 Last Admin: 11/01/17 17:35 Dose: 600 mg Lorazepam (Ativan) 0.5 mg PO Q4HR PRN; Protocol PRN Reason: Anxiety Stop: 11/19/17 23:08 Last Admin: 11/01/17 17:33 Dose: 0.5 mg Polyethylene Glycol (Miralax) 17 gm PO DAILY [facility] Stop: 12/20/17 08:59 Last Admin: 11/01/17 08:51 Dose: Not Given Quetiapine Fumarate (Seroquel) 25 mg PO PRN PRN; Protocol PRN Reason: Psychosis Stop: 12/19/17 23:15 Last Admin: 10/26/17 10:40 Dose: 25 mg Zolpidem Tartrate (Ambien) 5 mg PO HS PRN PRN Reason: Insomnia Stop: 12/19/17 23:08 Last Admin: 10/31/17 21:37 Dose: 5 mg General: Alert, No acute distress HEENT: Atraumatic Neck: Supple Cardiovascular: Regular rate Lungs: Clear to auscultation Abdomen: Bowel sounds Extremities: Other (Contracture of both feet) Neurological: Other (Non ambulatory) Skin: Other (Warm ) Psych/Mental Status: Other (Confused, not oriented) Assessment/Plan - Assessment Assessment: Patient is awake, alert, calm, in no acute distress. Dx: increased in agitation , Anemia, S/P [place], CHF, CAD, HTN. - Plan Plan: She is follow by Psychiatry, will continue SNF meds, Will continue to monitor. Nutritional Asmnt/Malnutr-PDOC - Dietary Evaluation Malnutrition Findings (Please click <Entered> for more info): Nutritional Asmnt/Malnutrition Start: 10/22/17 15: 22 Text: Status: Complete Freq: Document 10/22/17 15:22 [facility] (Rec: 10/22/17 15:53 [facility] [email or web address]) Nutritional Asmnt/Malnutrition Patient General Information Nutritional Screening High Risk Consult Diagnosis psychosis Pertinent Medical Hx/Surgical Hx CAD, HTN, CHF, [place], stiffness, limited movement of lower extremities, contracture of loer extremities Subjective Information rPt seen lying in bed at time of visit, angry about her food . Pt refused to eat pureed food. Pt has partial teeth noted. height in recorde is 13ft, possible not correct. RN made aware. Pt appeared thin. Current Diet Order/ Nutrition Support pureed Pertinent Medications seroquel Pertinent Labs 10/22 Cr 0.5, glucose 95, POC 117 Nutritional Hx/Data Current Weight (lbs) 47.627 kg Weight (Calculated Kilograms) 47.6 Weight (Calculated Grams) 45164.2 GI Symptoms GI Symptoms Constipation Difficult in: None Usual diet at home pt stated she eat regular food and cut into pieces by herself. Skin Integrity/Comment: intact Current %PO Negligible < 25% Estimated Nutritional Goals BEE in Kcals: Using Current wt Calories/Kcals/Kg 25-30 Kcals Calculated 0881-8861 Protein: Using Current wt Protein g/k-1.2 Protein Calculated 48-58 Nutritional Problem 1. Problem Problem inadequate food intake Etiology pt refusing pureed food Signs/Symptoms: PO intake <25% Malnutrition Alert Body Fat Depletion (Non-Severe) Mild Depletion Protein-Calorie Malnutrition N/A Is there a minimum of two criteria No selected? Query Text:Check all the applicable criteria. A minimum of two criteria are recommended for diagnosis of either severe or non-severe malnutrition. Intervention/Recommendation Comments 1. Recommend swallow eval for pt. If there is no chewing/ swallowing probelm, will ask MD to change diet order. ELIAS Cardenas made aware. Also RN will correct pt heigh in EMR. 2. Monitor PO intake, wt, labs and skin integrity 3. F/U as high risk in 2-3 days, 10/24-10/25 Expected Outcomes/Goals Expected Outcomes/Goals 1. PO intake to meet at least 75% of nutritional needs. 2. Wt stability, skin to remain intact, labs to approach WNL.
[2017-11-02] MEDS: Escitalopram Oxalate 5 mg Tab PO SCH (09:36)
[2017-11-02] MEDS: Ferrous Sulfate 325 MG TAB PO SCH (09:36)
[2017-11-02] MEDS: POLYETHYLENE GLYCOL 3350 17 GM PACK PO SCH (09:37)
--- NOTE | 2017-11-02 09:45 | Progress Notes ---
DATE: 11/02/2017 SUBJECTIVE: The patient still stating that she wants to go home, wanting to live alone. She is somewhat calmer this morning, sleeping, but arousable, remains somewhat disoriented, still with some bouts of yelling, but less. Still unruly at times, but more redirectable. The patient seems to be making up __ more__ allegations, for example, she is stating that men are coming into her room and dropping things on her feet. Odd ideas noted. The patient continues to require prompting redirection. ASSESSMENT: The patient remains unruly at times, making of odd allegations, seemingly suspicious, concerns for grave disability. PLAN: We will continue to monitor, continue to adjust and titrate medications. I did attempt to get in touch with family a few days prior. JOB# [id number] [facility]
[2017-11-03] MEDS: Hydrocodone/APAP 5mg/325mg Tab PO PRN (03:24)
--- NOTE | 2017-11-03 09:12 | General Progress Note ---
Subjective - Review of Systems Service Date: 11/03/17 Subjective: I am better Objective - Results Result Diagrams: 10/28/17 07:05 10/28/17 07:05 Recent Labs: Laboratory Last Values WBC 8.0 Th/cmm (4.8-10.8) 10/28/17 07:05 RBC 3.62 Mil/cmm (3.80-5.20) L 10/28/17 07:05 Hgb 9.5 gm/dL (12-16) L 10/28/17 07:05 Hct 29.2 % (41.0-60) L 10/28/17 07:05 MCV 80.7 fl (81-100) L 10/28/17 07:05 MCH 26.2 pg (27.0-31.0) L 10/28/17 07:05 MCHC Differential 32.5 pg (28.0-36.0) 10/28/17 07:05 RDW 16.3 % (11.5-20.0) 10/28/17 07:05 Plt Count 362 Th/cmm (150-400) 10/28/17 07:05 MPV 8.2 fl 10/28/17 07:05 Neutrophils % 62.7 % (40.0-80.0) 10/28/17 07:05 Lymphocytes % 24.6 % (20.0-50.0) 10/28/17 07:05 Monocytes % 8.6 % (2.0-10.0) 10/28/17 07:05 Eosinophils % 3.4 % (0.0-5.0) 10/28/17 07:05 Basophils % 0.7 % (0.0-2.0) 10/28/17 07:05 Sodium 139 mEq/L (136-145) 10/28/17 07:05 Potassium 4.1 mEq/L (3.5-5.1) 10/28/17 07:05 Chloride 107 mEq/L (98-107) 10/28/17 07:05 Carbon Dioxide 27.4 mEq/L (21.0-31.0) 10/28/17 07:05 Anion Gap 8.7 (7.0-16.0) 10/28/17 07:05 BUN 17 mg/dL (7-25) 10/28/17 07:05 Creatinine 0.5 mg/dL (0.6-1.2) L 10/28/17 07:05 Est GFR ( Amer) TNP 10/28/17 07:05 Est GFR (Non-Af Amer) TNP 10/28/17 07:05 BUN/Creatinine Ratio 34.0 10/28/17 07:05 Glucose 103 mg/dL (70-105) 10/28/17 07:05 POC Glucose 117 MG/DL (70 - 105) H 10/20/17 22:04 Calcium 8.8 mg/dL (8.6-10.3) 10/28/17 07:05 Total Bilirubin 0.2 mg/dL (0.3-1.0) L 10/28/17 07:05 AST 10 U/L (13-39) L 10/28/17 07:05 ALT 7 U/L (7-52) 10/28/17 07:05 Alkaline Phosphatase 83 U/L (34-104) 10/28/17 07:05 Troponin I 0.02 ng/mL (0.01-0.05) 10/28/17 07:05 Total Protein 5.7 gm/dL (6.0-8.3) L 10/28/17 07:05 Albumin 3.2 gm/dL (3.7-5.3) L 10/28/17 07:05 Globulin 2.5 gm/dL 10/28/17 07:05 Albumin/Globulin Ratio 1.3 (1.0-1.8) 10/28/17 07:05 TSH 1.98 uIU/ml (0.34-5.60) 10/22/17 07:20 - Physical Exam Vitals and I&O: Vital Signs Temp 97.3 F 11/03/17 06:21 Pulse 63 11/03/17 06:21 Resp 19 11/03/17 06:21 BP 126/67 11/03/17 06:21 Pulse Ox 96 11/03/17 06:21 Intake & Output 11/02/17 11/03/17 11/03/17 18:59 06:59 18:59 Intake Total 890 240 Balance 890 240 Intake: Oral 890 240 Other: # Voids 3 2 # Bowel Movements 1 1 Stool Characteristics Soft Formed Black Active Medications: Current Medications Acetaminophen (Tylenol) 650 mg PO Q6H PRN PRN Reason: Anesthesia Stop: 12/19/17 23:17 Last Admin: 10/31/17 21:37 Dose: 650 mg Acetaminophen/Hydrocodone Bitart ([place] 5mg/325mg) 1 tab PO Q4HR PRN PRN Reason: pain 4-6 Stop: 12/19/17 23:15 Last Admin: 11/03/17 03:24 Dose: 1 tab Digoxin (Lanoxin) 0.125 mg PO DAILY [facility] Stop: 12/20/17 08:59 Last Admin: 11/02/17 09:36 Dose: 0.125 mg Escitalopram Oxalate (Lexapro) 5 mg PO DAILY [facility] PRN Reason: Protocol Stop: 12/25/17 08:59 Last Admin: 11/02/17 09:36 Dose: 5 mg Ferrous Sulfate (Iron) 325 mg PO DAILY [facility] Stop: 12/27/17 08:59 Last Admin: 11/02/17 09:36 Dose: 325 mg Ibuprofen (Motrin) 600 mg PO Q6HR PRN PRN Reason: 1-3 pain Stop: 12/19/17 23:15 Last Admin: 11/02/17 14:59 Dose: 600 mg Lorazepam (Ativan) 0.5 mg PO Q4HR PRN; Protocol PRN Reason: Anxiety Stop: 11/19/17 23:08 Last Admin: 11/01/17 17:33 Dose: 0.5 mg Polyethylene Glycol (Miralax) 17 gm PO DAILY [facility] Stop: 12/20/17 08:59 Last Admin: 11/02/17 09:37 Dose: Not Given Quetiapine Fumarate (Seroquel) 25 mg PO PRN PRN; Protocol PRN Reason: Psychosis Stop: 12/19/17 23:15 Last Admin: 10/26/17 10:40 Dose: 25 mg Zolpidem Tartrate (Ambien) 5 mg PO HS PRN PRN Reason: Insomnia Stop: 12/19/17 23:08 Last Admin: 10/31/17 21:37 Dose: 5 mg General: Alert, No acute distress HEENT: Atraumatic Neck: Supple Cardiovascular: Regular rate Lungs: Clear to auscultation Abdomen: Bowel sounds Extremities: Other (Contracture of both feet) Neurological: Other (Non ambulatory) Skin: Other (Warm ) Psych/Mental Status: Other (Confused, not oriented) Assessment/Plan - Assessment Assessment: Patient is awake, alert, calm, in no acute distress. Dx: increased in agitation , Anemia, S/P PR, CHF, CAD, HTN. - Plan Plan: She is follow by Psychiatry, will continue SNF meds, Will continue to monitor. Nutritional Asmnt/Malnutr-PDOC - Dietary Evaluation Malnutrition Findings (Please click <Entered> for more info): Nutritional Asmnt/Malnutrition Start: 10/22/17 15: 22 Text: Status: Complete Freq: Document 10/22/17 15:22 [facility] (Rec: 10/22/17 15:53 [facility] [email or web address]) Nutritional Asmnt/Malnutrition Patient General Information Nutritional Screening High Risk Consult Diagnosis psychosis Pertinent Medical Hx/Surgical Hx CAD, HTN, CHF, PR, stiffness, limited movement of lower extremities, contracture of loer extremities Subjective Information rPt seen lying in bed at time of visit, angry about her food . Pt refused to eat pureed food. Pt has partial teeth noted. height in recorde is 13ft, possible not correct. RN made aware. Pt appeared thin. Current Diet Order/ Nutrition Support pureed Pertinent Medications seroquel Pertinent Labs 10/22 Cr 0.5, glucose 95, POC 117 Nutritional Hx/Data Current Weight (lbs) 47.627 kg Weight (Calculated Kilograms) 47.6 Weight (Calculated Grams) 20697.2 GI Symptoms GI Symptoms Constipation Difficult in: None Usual diet at home pt stated she eat regular food and cut into pieces by herself. Skin Integrity/Comment: intact Current %PO Negligible < 25% Estimated Nutritional Goals BEE in Kcals: Using Current wt Calories/Kcals/Kg 25-30 Kcals Calculated 0438-4121 Protein: Using Current wt Protein g/k-1.2 Protein Calculated 48-58 Nutritional Problem 1. Problem Problem inadequate food intake Etiology pt refusing pureed food Signs/Symptoms: PO intake <25% Malnutrition Alert Body Fat Depletion (Non-Severe) Mild Depletion Protein-Calorie Malnutrition N/A Is there a minimum of two criteria No selected? Query Text:Check all the applicable criteria. A minimum of two criteria are recommended for diagnosis of either severe or non-severe malnutrition. Intervention/Recommendation Comments 1. Recommend swallow eval for pt. If there is no chewing/ swallowing probelm, will ask MD to change diet order. ELIAS Cardenas made aware. Also RN will correct pt heigh in EMR. 2. Monitor PO intake, wt, labs and skin integrity 3. F/U as high risk in 2-3 days, 10/24-10/25 Expected Outcomes/Goals Expected Outcomes/Goals 1. PO intake to meet at least 75% of nutritional needs. 2. Wt stability, skin to remain intact, labs to approach WNL.
[2017-11-03] MEDS: Ferrous Sulfate 325 MG TAB PO SCH (09:17)
[2017-11-03] MEDS: Escitalopram Oxalate 5 mg Tab PO SCH (09:18)
[2017-11-03] MEDS: POLYETHYLENE GLYCOL 3350 17 GM PACK PO SCH (09:18)
--- NOTE | 2017-11-04 01:50 | Progress Notes ---
DATE: 11/03/2017 SUBJECTIVE: The patient calmer, more cooperative, still believes she can live on her own. Still with some yelling and screaming episodes, forgetful. Better insight is to why she is in the hospital, "it is because I am incontinent," "it is because I am old." I also let her know that we were concerned that she is forgetful and concerns about her ability to function independently as she lives very far away from family in [place], [place]. Still requiring some prompting. ASSESSMENT: The patient unruly at times, still suspicious, odd behaviors, forgetful. PLAN: We will continue to monitor. We are working hard on placement. The patient is not safe for a lower level of care. JOB# [id number]
[2017-11-04] MEDS: POLYETHYLENE GLYCOL 3350 17 GM PACK PO SCH (08:20)
[2017-11-04] MEDS: Ferrous Sulfate 325 MG TAB PO SCH (08:21)
[2017-11-04] MEDS: Escitalopram Oxalate 5 mg Tab PO SCH (08:21)
--- NOTE | 2017-11-04 09:05 | General Progress Note ---
Subjective - Review of Systems Service Date: 11/04/17 Subjective: I am better Objective - Results Result Diagrams: 10/28/17 07:05 10/28/17 07:05 Recent Labs: Laboratory Last Values WBC 8.0 Th/cmm (4.8-10.8) 10/28/17 07:05 RBC 3.62 Mil/cmm (3.80-5.20) L 10/28/17 07:05 Hgb 9.5 gm/dL (12-16) L 10/28/17 07:05 Hct 29.2 % (41.0-60) L 10/28/17 07:05 MCV 80.7 fl (81-100) L 10/28/17 07:05 MCH 26.2 pg (27.0-31.0) L 10/28/17 07:05 MCHC Differential 32.5 pg (28.0-36.0) 10/28/17 07:05 RDW 16.3 % (11.5-20.0) 10/28/17 07:05 Plt Count 362 Th/cmm (150-400) 10/28/17 07:05 MPV 8.2 fl 10/28/17 07:05 Neutrophils % 62.7 % (40.0-80.0) 10/28/17 07:05 Lymphocytes % 24.6 % (20.0-50.0) 10/28/17 07:05 Monocytes % 8.6 % (2.0-10.0) 10/28/17 07:05 Eosinophils % 3.4 % (0.0-5.0) 10/28/17 07:05 Basophils % 0.7 % (0.0-2.0) 10/28/17 07:05 Sodium 139 mEq/L (136-145) 10/28/17 07:05 Potassium 4.1 mEq/L (3.5-5.1) 10/28/17 07:05 Chloride 107 mEq/L (98-107) 10/28/17 07:05 Carbon Dioxide 27.4 mEq/L (21.0-31.0) 10/28/17 07:05 Anion Gap 8.7 (7.0-16.0) 10/28/17 07:05 BUN 17 mg/dL (7-25) 10/28/17 07:05 Creatinine 0.5 mg/dL (0.6-1.2) L 10/28/17 07:05 Est GFR ( Amer) TNP 10/28/17 07:05 Est GFR (Non-Af Amer) TNP 10/28/17 07:05 BUN/Creatinine Ratio 34.0 10/28/17 07:05 Glucose 103 mg/dL (70-105) 10/28/17 07:05 POC Glucose 117 MG/DL (70 - 105) H 10/20/17 22:04 Calcium 8.8 mg/dL (8.6-10.3) 10/28/17 07:05 Total Bilirubin 0.2 mg/dL (0.3-1.0) L 10/28/17 07:05 AST 10 U/L (13-39) L 10/28/17 07:05 ALT 7 U/L (7-52) 10/28/17 07:05 Alkaline Phosphatase 83 U/L (34-104) 10/28/17 07:05 Troponin I 0.02 ng/mL (0.01-0.05) 10/28/17 07:05 Total Protein 5.7 gm/dL (6.0-8.3) L 10/28/17 07:05 Albumin 3.2 gm/dL (3.7-5.3) L 10/28/17 07:05 Globulin 2.5 gm/dL 10/28/17 07:05 Albumin/Globulin Ratio 1.3 (1.0-1.8) 10/28/17 07:05 TSH 1.98 uIU/ml (0.34-5.60) 10/22/17 07:20 - Physical Exam Vitals and I&O: Vital Signs Temp 97.3 F 11/04/17 07:12 Pulse 60 11/04/17 08:21 Resp 19 11/04/17 07:12 BP 126/51 11/04/17 07:12 Pulse Ox 96 11/04/17 07:12 Intake & Output 11/03/17 11/04/17 11/04/17 18:59 06:59 18:59 Intake Total 800 240 Balance 800 240 Intake: Oral 800 240 Other: # Voids 3 1 # Bowel Movements 1 Stool Characteristics Soft Formed Black Active Medications: Current Medications Acetaminophen (Tylenol) 650 mg PO Q6H PRN PRN Reason: Anesthesia Stop: 12/19/17 23:17 Last Admin: 10/31/17 21:37 Dose: 650 mg Acetaminophen/Hydrocodone Bitart ([place] 5mg/325mg) 1 tab PO Q4HR PRN PRN Reason: pain 4-6 Stop: 12/19/17 23:15 Last Admin: 11/03/17 03:24 Dose: 1 tab Digoxin (Lanoxin) 0.125 mg PO DAILY [facility] Stop: 12/20/17 08:59 Last Admin: 11/04/17 08:21 Dose: 0.125 mg Escitalopram Oxalate (Lexapro) 5 mg PO DAILY [facility] PRN Reason: Protocol Stop: 12/25/17 08:59 Last Admin: 11/04/17 08:21 Dose: 5 mg Ferrous Sulfate (Iron) 325 mg PO DAILY [facility] Stop: 12/27/17 08:59 Last Admin: 11/04/17 08:21 Dose: 325 mg Ibuprofen (Motrin) 600 mg PO Q6HR PRN PRN Reason: 1-3 pain Stop: 12/19/17 23:15 Last Admin: 11/02/17 14:59 Dose: 600 mg Lorazepam (Ativan) 0.5 mg PO Q4HR PRN; Protocol PRN Reason: Anxiety Stop: 11/19/17 23:08 Last Admin: 11/03/17 20:16 Dose: 0.5 mg Polyethylene Glycol (Miralax) 17 gm PO DAILY [facility] Stop: 12/20/17 08:59 Last Admin: 11/04/17 08:20 Dose: 17 gm Quetiapine Fumarate (Seroquel) 25 mg PO PRN PRN; Protocol PRN Reason: Psychosis Stop: 12/19/17 23:15 Last Admin: 10/26/17 10:40 Dose: 25 mg Zolpidem Tartrate (Ambien) 5 mg PO HS PRN PRN Reason: Insomnia Stop: 12/19/17 23:08 Last Admin: 10/31/17 21:37 Dose: 5 mg General: Alert, No acute distress HEENT: Atraumatic Neck: Supple Cardiovascular: Regular rate Lungs: Clear to auscultation Abdomen: Bowel sounds Extremities: Other (Contracture of both feet) Neurological: Other (Non ambulatory) Skin: Other (Warm ) Psych/Mental Status: Other (Confused, not oriented) Assessment/Plan - Assessment Assessment: Patient is awake, alert, calm, in no acute distress. Dx: increased in agitation , Anemia, S/P NM, CHF, CAD, HTN. - Plan Plan: She is follow by Psychiatry, will continue SNF meds, Will continue to monitor. Nutritional Asmnt/Malnutr-PDOC - Dietary Evaluation Malnutrition Findings (Please click <Entered> for more info): Nutritional Asmnt/Malnutrition Start: 10/22/17 15: 22 Text: Status: Complete Freq: Document 10/22/17 15:22 [facility] (Rec: 10/22/17 15:53 [facility] [email or web address]) Nutritional Asmnt/Malnutrition Patient General Information Nutritional Screening High Risk Consult Diagnosis psychosis Pertinent Medical Hx/Surgical Hx CAD, HTN, CHF, NM, stiffness, limited movement of lower extremities, contracture of loer extremities Subjective Information rPt seen lying in bed at time of visit, angry about her food . Pt refused to eat pureed food. Pt has partial teeth noted. height in recorde is 13ft, possible not correct. RN made aware. Pt appeared thin. Current Diet Order/ Nutrition Support pureed Pertinent Medications seroquel Pertinent Labs 10/22 Cr 0.5, glucose 95, POC 117 Nutritional Hx/Data Current Weight (lbs) 47.627 kg Weight (Calculated Kilograms) 47.6 Weight (Calculated Grams) 83768.2 GI Symptoms GI Symptoms Constipation Difficult in: None Usual diet at home pt stated she eat regular food and cut into pieces by herself. Skin Integrity/Comment: intact Current %PO Negligible < 25% Estimated Nutritional Goals BEE in Kcals: Using Current wt Calories/Kcals/Kg 25-30 Kcals Calculated 1488-4452 Protein: Using Current wt Protein g/k-1.2 Protein Calculated 48-58 Nutritional Problem 1. Problem Problem inadequate food intake Etiology pt refusing pureed food Signs/Symptoms: PO intake <25% Malnutrition Alert Body Fat Depletion (Non-Severe) Mild Depletion Protein-Calorie Malnutrition N/A Is there a minimum of two criteria No selected? Query Text:Check all the applicable criteria. A minimum of two criteria are recommended for diagnosis of either severe or non-severe malnutrition. Intervention/Recommendation Comments 1. Recommend swallow eval for pt. If there is no chewing/ swallowing probelm, will ask MD to change diet order. ELIAS Cardenas made aware. Also RN will correct pt heigh in EMR. 2. Monitor PO intake, wt, labs and skin integrity 3. F/U as high risk in 2-3 days, 10/24-10/25 Expected Outcomes/Goals Expected Outcomes/Goals 1. PO intake to meet at least 75% of nutritional needs. 2. Wt stability, skin to remain intact, labs to approach WNL.
--- NOTE | 2017-11-05 05:07 | Progress Notes ---
DATE: 11/04/2017 SUBJECTIVE: The patient seen, chart reviewed, discussed with staff. The patient remains fairly confused, irritable, disoriented. However, she is fairly calm and cooperative. We are trying to help with placement, still with some episodes of forgetfulness. She is pretty disoriented on exam, unable to care for her basic needs. She is taking her medications, no side effects. ASSESSMENT: The patient remains symptomatic, not safe for a lower level of care. We are trying to help her with placement. PLAN: We will continue to monitor. We will coordinate care with social sciences department chair. JOB# [id number]
[2017-11-05] MEDS: Ferrous Sulfate 325 MG TAB PO SCH (09:20)
[2017-11-05] MEDS: Escitalopram Oxalate 5 mg Tab PO SCH (09:20)
--- NOTE | 2017-11-05 09:30 | General Progress Note ---
Subjective - Review of Systems Service Date: 11/05/17 Subjective: I am better Objective - Results Result Diagrams: 10/28/17 07:05 10/28/17 07:05 Recent Labs: Laboratory Last Values WBC 8.0 Th/cmm (4.8-10.8) 10/28/17 07:05 RBC 3.62 Mil/cmm (3.80-5.20) L 10/28/17 07:05 Hgb 9.5 gm/dL (12-16) L 10/28/17 07:05 Hct 29.2 % (41.0-60) L 10/28/17 07:05 MCV 80.7 fl (81-100) L 10/28/17 07:05 MCH 26.2 pg (27.0-31.0) L 10/28/17 07:05 MCHC Differential 32.5 pg (28.0-36.0) 10/28/17 07:05 RDW 16.3 % (11.5-20.0) 10/28/17 07:05 Plt Count 362 Th/cmm (150-400) 10/28/17 07:05 MPV 8.2 fl 10/28/17 07:05 Neutrophils % 62.7 % (40.0-80.0) 10/28/17 07:05 Lymphocytes % 24.6 % (20.0-50.0) 10/28/17 07:05 Monocytes % 8.6 % (2.0-10.0) 10/28/17 07:05 Eosinophils % 3.4 % (0.0-5.0) 10/28/17 07:05 Basophils % 0.7 % (0.0-2.0) 10/28/17 07:05 Sodium 139 mEq/L (136-145) 10/28/17 07:05 Potassium 4.1 mEq/L (3.5-5.1) 10/28/17 07:05 Chloride 107 mEq/L (98-107) 10/28/17 07:05 Carbon Dioxide 27.4 mEq/L (21.0-31.0) 10/28/17 07:05 Anion Gap 8.7 (7.0-16.0) 10/28/17 07:05 BUN 17 mg/dL (7-25) 10/28/17 07:05 Creatinine 0.5 mg/dL (0.6-1.2) L 10/28/17 07:05 Est GFR ( Amer) TNP 10/28/17 07:05 Est GFR (Non-Af Amer) TNP 10/28/17 07:05 BUN/Creatinine Ratio 34.0 10/28/17 07:05 Glucose 103 mg/dL (70-105) 10/28/17 07:05 POC Glucose 82 MG/DL (70 - 105) 11/05/17 06:21 Calcium 8.8 mg/dL (8.6-10.3) 10/28/17 07:05 Total Bilirubin 0.2 mg/dL (0.3-1.0) L 10/28/17 07:05 AST 10 U/L (13-39) L 10/28/17 07:05 ALT 7 U/L (7-52) 10/28/17 07:05 Alkaline Phosphatase 83 U/L (34-104) 10/28/17 07:05 Troponin I 0.02 ng/mL (0.01-0.05) 10/28/17 07:05 Total Protein 5.7 gm/dL (6.0-8.3) L 10/28/17 07:05 Albumin 3.2 gm/dL (3.7-5.3) L 10/28/17 07:05 Globulin 2.5 gm/dL 10/28/17 07:05 Albumin/Globulin Ratio 1.3 (1.0-1.8) 10/28/17 07:05 TSH 1.98 uIU/ml (0.34-5.60) 10/22/17 07:20 - Physical Exam Vitals and I&O: Vital Signs Temp 98.6 F 11/05/17 06:30 Pulse 80 11/05/17 06:30 Resp 18 11/05/17 06:30 BP 124/69 11/05/17 06:30 Pulse Ox 96 11/05/17 06:30 Intake & Output 11/04/17 11/05/17 11/05/17 18:59 06:59 18:59 Intake Total 600 Balance 600 Intake: Oral 600 Other: # Voids 3 3 # Bowel Movements 1 Stool Characteristics Soft Formed Black Active Medications: Current Medications Acetaminophen (Tylenol) 650 mg PO Q6H PRN PRN Reason: Anesthesia Stop: 12/19/17 23:17 Last Admin: 10/31/17 21:37 Dose: 650 mg Acetaminophen/Hydrocodone Bitart ([place] 5mg/325mg) 1 tab PO Q4HR PRN PRN Reason: pain 4-6 Stop: 12/19/17 23:15 Last Admin: 11/03/17 03:24 Dose: 1 tab Digoxin (Lanoxin) 0.125 mg PO DAILY [facility] Stop: 12/20/17 08:59 Last Admin: 11/04/17 08:21 Dose: 0.125 mg Escitalopram Oxalate (Lexapro) 5 mg PO DAILY [facility] PRN Reason: Protocol Stop: 12/25/17 08:59 Last Admin: 11/04/17 08:21 Dose: 5 mg Ferrous Sulfate (Iron) 325 mg PO DAILY [facility] Stop: 12/27/17 08:59 Last Admin: 11/04/17 08:21 Dose: 325 mg Ibuprofen (Motrin) 600 mg PO Q6HR PRN PRN Reason: 1-3 pain Stop: 12/19/17 23:15 Last Admin: 11/02/17 14:59 Dose: 600 mg Lorazepam (Ativan) 0.5 mg PO Q4HR PRN; Protocol PRN Reason: Anxiety Stop: 11/19/17 23:08 Last Admin: 11/04/17 15:27 Dose: 0.5 mg Polyethylene Glycol (Miralax) 17 gm PO DAILY [facility] Stop: 12/20/17 08:59 Last Admin: 11/04/17 08:20 Dose: 17 gm Quetiapine Fumarate (Seroquel) 25 mg PO PRN PRN; Protocol PRN Reason: Psychosis Stop: 12/19/17 23:15 Last Admin: 11/04/17 15:26 Dose: 25 mg Zolpidem Tartrate (Ambien) 5 mg PO HS PRN PRN Reason: Insomnia Stop: 12/19/17 23:08 Last Admin: 10/31/17 21:37 Dose: 5 mg General: Alert, No acute distress HEENT: Atraumatic Neck: Supple Cardiovascular: Regular rate Lungs: Clear to auscultation Abdomen: Bowel sounds Extremities: Other (Contracture of both feet) Neurological: Other (Non ambulatory) Skin: Other (Warm ) Psych/Mental Status: Other (Confused, not oriented) Assessment/Plan - Assessment Assessment: Patient is awake, alert, calm, in no acute distress. Dx: increased in agitation , Anemia, S/P CA, CHF, CAD, HTN. - Plan Plan: She is follow by Psychiatry, will continue SNF meds, Will continue to monitor. Nutritional Asmnt/Malnutr-PDOC - Dietary Evaluation Malnutrition Findings (Please click <Entered> for more info): Nutritional Asmnt/Malnutrition Start: 10/22/17 15: 22 Text: Status: Complete Freq: Document 10/22/17 15:22 [facility] (Rec: 10/22/17 15:53 [facility] [email or web address]) Nutritional Asmnt/Malnutrition Patient General Information Nutritional Screening High Risk Consult Diagnosis psychosis Pertinent Medical Hx/Surgical Hx CAD, HTN, CHF, CA, stiffness, limited movement of lower extremities, contracture of loer extremities Subjective Information rPt seen lying in bed at time of visit, angry about her food . Pt refused to eat pureed food. Pt has partial teeth noted. height in recorde is 13ft, possible not correct. RN made aware. Pt appeared thin. Current Diet Order/ Nutrition Support pureed Pertinent Medications seroquel Pertinent Labs 10/22 Cr 0.5, glucose 95, POC 117 Nutritional Hx/Data Current Weight (lbs) 47.627 kg Weight (Calculated Kilograms) 47.6 Weight (Calculated Grams) 98718.2 GI Symptoms GI Symptoms Constipation Difficult in: None Usual diet at home pt stated she eat regular food and cut into pieces by herself. Skin Integrity/Comment: intact Current %PO Negligible < 25% Estimated Nutritional Goals BEE in Kcals: Using Current wt Calories/Kcals/Kg 25-30 Kcals Calculated 3460-0818 Protein: Using Current wt Protein g/k-1.2 Protein Calculated 48-58 Nutritional Problem 1. Problem Problem inadequate food intake Etiology pt refusing pureed food Signs/Symptoms: PO intake <25% Malnutrition Alert Body Fat Depletion (Non-Severe) Mild Depletion Protein-Calorie Malnutrition N/A Is there a minimum of two criteria No selected? Query Text:Check all the applicable criteria. A minimum of two criteria are recommended for diagnosis of either severe or non-severe malnutrition. Intervention/Recommendation Comments 1. Recommend swallow eval for pt. If there is no chewing/ swallowing probelm, will ask MD to change diet order. ELIAS Cardenas made aware. Also RN will correct pt heigh in EMR. 2. Monitor PO intake, wt, labs and skin integrity 3. F/U as high risk in 2-3 days, 10/24-10/25 Expected Outcomes/Goals Expected Outcomes/Goals 1. PO intake to meet at least 75% of nutritional needs. 2. Wt stability, skin to remain intact, labs to approach WNL.
[2017-11-05] MEDS: POLYETHYLENE GLYCOL 3350 17 GM PACK PO SCH (11:17)
--- NOTE | 2017-11-05 19:55 | Progress Notes ---
DATE: 11/05/2017 SUBJECTIVE: The patient is still yelling at times, erratically medication compliance. States she wants to stop the medicine and take it when she leaves. I encouraged medication compliance with this patient. The patient is sleeping well, eating fairly well. Remains isolative, still believes she can live alone. Family concerned. Medications were noted including doses and frequencies. I did speak with staff. ASSESSMENT: The patient remains symptomatic, still unruly at times, disoriented, poor memory, concerns for grave disability. We will continue to monitor. We are working hard on placements. JOB# [id number]
[2017-11-05] MEDS: Hydrocodone/APAP 5mg/325mg Tab PO PRN (22:18)
[2017-11-06] MEDS: POLYETHYLENE GLYCOL 3350 17 GM PACK PO SCH (09:22)
[2017-11-06] MEDS: Escitalopram Oxalate 5 mg Tab PO SCH (09:22)
[2017-11-06] MEDS: Ferrous Sulfate 325 MG TAB PO SCH (09:23)
--- NOTE | 2017-11-06 09:50 | General Progress Note ---
Subjective - Review of Systems Service Date: 11/06/17 Subjective: I am better Objective - Results Result Diagrams: 10/28/17 07:05 10/28/17 07:05 Recent Labs: Laboratory Last Values WBC 8.0 Th/cmm (4.8-10.8) 10/28/17 07:05 RBC 3.62 Mil/cmm (3.80-5.20) L 10/28/17 07:05 Hgb 9.5 gm/dL (12-16) L 10/28/17 07:05 Hct 29.2 % (41.0-60) L 10/28/17 07:05 MCV 80.7 fl (81-100) L 10/28/17 07:05 MCH 26.2 pg (27.0-31.0) L 10/28/17 07:05 MCHC Differential 32.5 pg (28.0-36.0) 10/28/17 07:05 RDW 16.3 % (11.5-20.0) 10/28/17 07:05 Plt Count 362 Th/cmm (150-400) 10/28/17 07:05 MPV 8.2 fl 10/28/17 07:05 Neutrophils % 62.7 % (40.0-80.0) 10/28/17 07:05 Lymphocytes % 24.6 % (20.0-50.0) 10/28/17 07:05 Monocytes % 8.6 % (2.0-10.0) 10/28/17 07:05 Eosinophils % 3.4 % (0.0-5.0) 10/28/17 07:05 Basophils % 0.7 % (0.0-2.0) 10/28/17 07:05 Sodium 139 mEq/L (136-145) 10/28/17 07:05 Potassium 4.1 mEq/L (3.5-5.1) 10/28/17 07:05 Chloride 107 mEq/L (98-107) 10/28/17 07:05 Carbon Dioxide 27.4 mEq/L (21.0-31.0) 10/28/17 07:05 Anion Gap 8.7 (7.0-16.0) 10/28/17 07:05 BUN 17 mg/dL (7-25) 10/28/17 07:05 Creatinine 0.5 mg/dL (0.6-1.2) L 10/28/17 07:05 Est GFR ( Amer) TNP 10/28/17 07:05 Est GFR (Non-Af Amer) TNP 10/28/17 07:05 BUN/Creatinine Ratio 34.0 10/28/17 07:05 Glucose 103 mg/dL (70-105) 10/28/17 07:05 POC Glucose 82 MG/DL (70 - 105) 11/05/17 06:21 Calcium 8.8 mg/dL (8.6-10.3) 10/28/17 07:05 Total Bilirubin 0.2 mg/dL (0.3-1.0) L 10/28/17 07:05 AST 10 U/L (13-39) L 10/28/17 07:05 ALT 7 U/L (7-52) 10/28/17 07:05 Alkaline Phosphatase 83 U/L (34-104) 10/28/17 07:05 Troponin I 0.02 ng/mL (0.01-0.05) 10/28/17 07:05 Total Protein 5.7 gm/dL (6.0-8.3) L 10/28/17 07:05 Albumin 3.2 gm/dL (3.7-5.3) L 10/28/17 07:05 Globulin 2.5 gm/dL 10/28/17 07:05 Albumin/Globulin Ratio 1.3 (1.0-1.8) 10/28/17 07:05 TSH 1.98 uIU/ml (0.34-5.60) 10/22/17 07:20 - Physical Exam Vitals and I&O: Vital Signs Temp 97.6 F 11/06/17 06:22 Pulse 69 11/06/17 09:23 Resp 20 11/06/17 06:22 BP 137/73 11/06/17 06:22 Pulse Ox 98 11/06/17 06:22 Intake & Output 11/05/17 11/06/17 11/06/17 18:59 06:59 18:59 Intake Total 750 750 Balance 750 750 Intake: Oral 750 750 Other: # Voids 3 2 Active Medications: Current Medications Acetaminophen (Tylenol) 650 mg PO Q6H PRN PRN Reason: Anesthesia Stop: 12/19/17 23:17 Last Admin: 10/31/17 21:37 Dose: 650 mg Acetaminophen/Hydrocodone Bitart ([place] 5mg/325mg) 1 tab PO Q4HR PRN PRN Reason: pain 4-6 Stop: 12/19/17 23:15 Last Admin: 11/05/17 22:18 Dose: 1 tab Digoxin (Lanoxin) 0.125 mg PO DAILY [facility] Stop: 12/20/17 08:59 Last Admin: 11/06/17 09:23 Dose: 0.125 mg Escitalopram Oxalate (Lexapro) 5 mg PO DAILY [facility] PRN Reason: Protocol Stop: 12/25/17 08:59 Last Admin: 11/06/17 09:22 Dose: 5 mg Ferrous Sulfate (Iron) 325 mg PO DAILY [facility] Stop: 12/27/17 08:59 Last Admin: 11/06/17 09:23 Dose: 325 mg Ibuprofen (Motrin) 600 mg PO Q6HR PRN PRN Reason: 1-3 pain Stop: 12/19/17 23:15 Last Admin: 11/05/17 15:12 Dose: 600 mg Lorazepam (Ativan) 0.5 mg PO Q4HR PRN; Protocol PRN Reason: Anxiety Stop: 11/19/17 23:08 Last Admin: 11/05/17 22:19 Dose: 0.5 mg Polyethylene Glycol (Miralax) 17 gm PO DAILY [facility] Stop: 12/20/17 08:59 Last Admin: 11/06/17 09:22 Dose: Not Given Quetiapine Fumarate (Seroquel) 25 mg PO PRN PRN; Protocol PRN Reason: Psychosis Stop: 12/19/17 23:15 Last Admin: 11/04/17 15:26 Dose: 25 mg Zolpidem Tartrate (Ambien) 5 mg PO HS PRN PRN Reason: Insomnia Stop: 12/19/17 23:08 Last Admin: 10/31/17 21:37 Dose: 5 mg General: Alert, No acute distress HEENT: Atraumatic Neck: Supple Cardiovascular: Regular rate Lungs: Clear to auscultation Abdomen: Bowel sounds Extremities: Other (Contracture of both feet) Neurological: Other (Non ambulatory) Skin: Other (Warm ) Psych/Mental Status: Other (Confused, not oriented) Assessment/Plan - Assessment Assessment: Patient is awake, alert, calm, in no acute distress. Dx: increased in agitation , Anemia, S/P [place], CHF, CAD, HTN. - Plan Plan: She is follow by Psychiatry, will continue SNF meds, Will continue to monitor. Nutritional Asmnt/Malnutr-PDOC - Dietary Evaluation Malnutrition Findings (Please click <Entered> for more info): Nutritional Asmnt/Malnutrition Start: 10/22/17 15: 22 Text: Status: Complete Freq: Document 10/22/17 15:22 [facility] (Rec: 10/22/17 15:53 [facility] [email or web address]) Nutritional Asmnt/Malnutrition Patient General Information Nutritional Screening High Risk Consult Diagnosis psychosis Pertinent Medical Hx/Surgical Hx CAD, HTN, CHF, [place], stiffness, limited movement of lower extremities, contracture of loer extremities Subjective Information rPt seen lying in bed at time of visit, angry about her food . Pt refused to eat pureed food. Pt has partial teeth noted. height in recorde is 13ft, possible not correct. RN made aware. Pt appeared thin. Current Diet Order/ Nutrition Support pureed Pertinent Medications seroquel Pertinent Labs 10/22 Cr 0.5, glucose 95, POC 117 Nutritional Hx/Data Current Weight (lbs) 47.627 kg Weight (Calculated Kilograms) 47.6 Weight (Calculated Grams) 97599.2 GI Symptoms GI Symptoms Constipation Difficult in: None Usual diet at home pt stated she eat regular food and cut into pieces by herself. Skin Integrity/Comment: intact Current %PO Negligible < 25% Estimated Nutritional Goals BEE in Kcals: Using Current wt Calories/Kcals/Kg 25-30 Kcals Calculated 6200-4835 Protein: Using Current wt Protein g/k-1.2 Protein Calculated 48-58 Nutritional Problem 1. Problem Problem inadequate food intake Etiology pt refusing pureed food Signs/Symptoms: PO intake <25% Malnutrition Alert Body Fat Depletion (Non-Severe) Mild Depletion Protein-Calorie Malnutrition N/A Is there a minimum of two criteria No selected? Query Text:Check all the applicable criteria. A minimum of two criteria are recommended for diagnosis of either severe or non-severe malnutrition. Intervention/Recommendation Comments 1. Recommend swallow eval for pt. If there is no chewing/ swallowing probelm, will ask MD to change diet order. ELIAS Cardenas made aware. Also RN will correct pt heigh in EMR. 2. Monitor PO intake, wt, labs and skin integrity 3. F/U as high risk in 2-3 days, 10/24-10/25 Expected Outcomes/Goals Expected Outcomes/Goals 1. PO intake to meet at least 75% of nutritional needs. 2. Wt stability, skin to remain intact, labs to approach WNL.
--- NOTE | 2017-11-06 22:45 | Progress Notes ---
DATE: 11/06/2017 SUBJECTIVE: The patient seen, chart reviewed, discussed with staff. The patient is calmer, still somewhat disoriented, remains gravely disabled, believes she can live on her own, sleeping well, eating well, getting along better with staff and peers, less yelling episodes, likely approaching her baseline. Medications were noted. ASSESSMENT: The patient is still with some yelling episodes, but less; still remained disoriented, unable to care for her basic needs and we will continue to monitor and follow up. PLAN: We will continue to titrate and adjust medications. I will coordinate care with social work regarding safe discharge plan and good psychiatric followup. JOB# [id number]
[2017-11-07] MEDS: POLYETHYLENE GLYCOL 3350 17 GM PACK PO SCH (08:32)
[2017-11-07] MEDS: Ferrous Sulfate 325 MG TAB PO SCH (08:32)
[2017-11-07] MEDS: Escitalopram Oxalate 5 mg Tab PO SCH (08:32)
--- NOTE | 2017-11-07 23:49 | Progress Notes ---
DATE: 11/07/[address] Valencia. Case was discussed with staff of the patient, reviewed records. The patient is a well known case to me. I have seen her before covering for Dr. Valencia. The patient continues to be confused, continues to be gravely disabled, unable to make safe plan for self-care, stay in bed most of the time, and unable to live on her own. She is sleeping better and eating better. She is ____ with the staff. She continues to have episodes of yelling, but less often. She is compliant with the medications with no side effects, no sedation, no nausea, and no extrapyramidal symptoms. She is on Lexapro 5 mg daily that I started her on 10/26/2017 and Seroquel 25 mg as needed with no side effects, no sedation, no nausea, and no extrapyramidal symptoms. We will continue to work with the patient in group therapy, milieu therapy, and adjust the medications as needed. [facility]# [id number]
[2017-11-08] MEDS: POLYETHYLENE GLYCOL 3350 17 GM PACK PO SCH (08:46)
[2017-11-08] MEDS: Ferrous Sulfate 325 MG TAB PO SCH (08:46)
[2017-11-08] MEDS: Escitalopram Oxalate 5 mg Tab PO SCH (08:47)
--- NOTE | 2017-11-08 22:37 | Progress Notes ---
DATE: 11/08/[address] Acosta Valencia M.D. Case discussed with staff of the patient, reviewed records. The patient continues to be unpredictable. Continues to be confused. She is staying in bed. I encouraged her to get out of bed and going to the dining room. She said she cannot stand. She cannot sit. She has been miserable. She has been compliant with the medication with no side effects and seen by the staff, is trying to work on placement and will continue outpatient group therapy, milieu therapy, adjust medications as needed. JOB# [id number]
--- NOTE | 2017-11-09 08:59 | General Progress Note ---
Subjective - Review of Systems Service Date: 11/09/17 Subjective: I am better Objective - Results Result Diagrams: 10/28/17 07:05 10/28/17 07:05 Recent Labs: Laboratory Last Values WBC 8.0 Th/cmm (4.8-10.8) 10/28/17 07:05 RBC 3.62 Mil/cmm (3.80-5.20) L 10/28/17 07:05 Hgb 9.5 gm/dL (12-16) L 10/28/17 07:05 Hct 29.2 % (41.0-60) L 10/28/17 07:05 MCV 80.7 fl (81-100) L 10/28/17 07:05 MCH 26.2 pg (27.0-31.0) L 10/28/17 07:05 MCHC Differential 32.5 pg (28.0-36.0) 10/28/17 07:05 RDW 16.3 % (11.5-20.0) 10/28/17 07:05 Plt Count 362 Th/cmm (150-400) 10/28/17 07:05 MPV 8.2 fl 10/28/17 07:05 Neutrophils % 62.7 % (40.0-80.0) 10/28/17 07:05 Lymphocytes % 24.6 % (20.0-50.0) 10/28/17 07:05 Monocytes % 8.6 % (2.0-10.0) 10/28/17 07:05 Eosinophils % 3.4 % (0.0-5.0) 10/28/17 07:05 Basophils % 0.7 % (0.0-2.0) 10/28/17 07:05 Sodium 139 mEq/L (136-145) 10/28/17 07:05 Potassium 4.1 mEq/L (3.5-5.1) 10/28/17 07:05 Chloride 107 mEq/L (98-107) 10/28/17 07:05 Carbon Dioxide 27.4 mEq/L (21.0-31.0) 10/28/17 07:05 Anion Gap 8.7 (7.0-16.0) 10/28/17 07:05 BUN 17 mg/dL (7-25) 10/28/17 07:05 Creatinine 0.5 mg/dL (0.6-1.2) L 10/28/17 07:05 Est GFR ( Amer) TNP 10/28/17 07:05 Est GFR (Non-Af Amer) TNP 10/28/17 07:05 BUN/Creatinine Ratio 34.0 10/28/17 07:05 Glucose 103 mg/dL (70-105) 10/28/17 07:05 POC Glucose 120 MG/DL (70 - 105) H 11/08/17 16:50 Calcium 8.8 mg/dL (8.6-10.3) 10/28/17 07:05 Total Bilirubin 0.2 mg/dL (0.3-1.0) L 10/28/17 07:05 AST 10 U/L (13-39) L 10/28/17 07:05 ALT 7 U/L (7-52) 10/28/17 07:05 Alkaline Phosphatase 83 U/L (34-104) 10/28/17 07:05 Troponin I 0.02 ng/mL (0.01-0.05) 10/28/17 07:05 Total Protein 5.7 gm/dL (6.0-8.3) L 10/28/17 07:05 Albumin 3.2 gm/dL (3.7-5.3) L 10/28/17 07:05 Globulin 2.5 gm/dL 10/28/17 07:05 Albumin/Globulin Ratio 1.3 (1.0-1.8) 10/28/17 07:05 TSH 1.98 uIU/ml (0.34-5.60) 10/22/17 07:20 - Physical Exam Vitals and I&O: Vital Signs Temp 97.4 F 11/09/17 06:06 Pulse 61 11/09/17 06:06 Resp 18 11/09/17 06:06 BP 117/58 11/09/17 06:06 Pulse Ox 97 11/09/17 06:06 Intake & Output 11/08/17 11/09/17 11/09/17 18:59 06:59 18:59 Intake Total 850 240 Output Total 1 Balance 850 239 Intake: Oral 850 240 Output: Urine 1 Other: # Voids 4 1 # Bowel Movements 1 1 Active Medications: Current Medications Acetaminophen (Tylenol) 650 mg PO Q6H PRN PRN Reason: Anesthesia Stop: 12/19/17 23:17 Last Admin: 11/06/17 15:35 Dose: 650 mg Acetaminophen/Hydrocodone Bitart ([place] 5mg/325mg) 1 tab PO Q4HR PRN PRN Reason: pain 4-6 Stop: 12/19/17 23:15 Last Admin: 11/05/17 22:18 Dose: 1 tab Digoxin (Lanoxin) 0.125 mg PO DAILY [facility] Stop: 12/20/17 08:59 Last Admin: 11/08/17 08:46 Dose: 0.125 mg Escitalopram Oxalate (Lexapro) 5 mg PO DAILY [facility] PRN Reason: Protocol Stop: 12/25/17 08:59 Last Admin: 11/08/17 08:47 Dose: 5 mg Ferrous Sulfate (Iron) 325 mg PO DAILY [facility] Stop: 12/27/17 08:59 Last Admin: 11/08/17 08:46 Dose: 325 mg Ibuprofen (Motrin) 600 mg PO Q6HR PRN PRN Reason: 1-3 pain Stop: 12/19/17 23:15 Last Admin: 11/07/17 20:27 Dose: 600 mg Lorazepam (Ativan) 0.5 mg PO Q4HR PRN; Protocol PRN Reason: Anxiety Stop: 11/19/17 23:08 Last Admin: 11/05/17 22:19 Dose: 0.5 mg Polyethylene Glycol (Miralax) 17 gm PO DAILY [facility] Stop: 12/20/17 08:59 Last Admin: 11/08/17 08:46 Dose: 17 gm Quetiapine Fumarate (Seroquel) 25 mg PO PRN PRN; Protocol PRN Reason: Psychosis Stop: 12/19/17 23:15 Last Admin: 11/04/17 15:26 Dose: 25 mg Zolpidem Tartrate (Ambien) 5 mg PO HS PRN PRN Reason: Insomnia Stop: 12/19/17 23:08 Last Admin: 11/07/17 20:28 Dose: 5 mg General: Alert, No acute distress HEENT: Atraumatic Neck: Supple Cardiovascular: Regular rate Lungs: Clear to auscultation Abdomen: Bowel sounds Extremities: Other (Contracture of both feet) Neurological: Other (Non ambulatory) Skin: Other (Warm ) Psych/Mental Status: Other (Confused, not oriented) Assessment/Plan - Assessment Assessment: Patient is awake, alert, calm, in no acute distress. Dx: increased in agitation , Anemia, S/P [place], CHF, CAD, HTN. - Plan Plan: She is follow by Psychiatry, will continue SNF meds, Will continue to monitor. Nutritional Asmnt/Malnutr-PDOC - Dietary Evaluation Malnutrition Findings (Please click <Entered> for more info): Nutritional Asmnt/Malnutrition Start: 10/22/17 15: 22 Text: Status: Complete Freq: Document 10/22/17 15:22 [facility] (Rec: 10/22/17 15:53 [facility] [email or web address]) Nutritional Asmnt/Malnutrition Patient General Information Nutritional Screening High Risk Consult Diagnosis psychosis Pertinent Medical Hx/Surgical Hx CAD, HTN, CHF, [place], stiffness, limited movement of lower extremities, contracture of loer extremities Subjective Information rPt seen lying in bed at time of visit, angry about her food . Pt refused to eat pureed food. Pt has partial teeth noted. height in recorde is 13ft, possible not correct. RN made aware. Pt appeared thin. Current Diet Order/ Nutrition Support pureed Pertinent Medications seroquel Pertinent Labs 10/22 Cr 0.5, glucose 95, POC 117 Nutritional Hx/Data Current Weight (lbs) 47.627 kg Weight (Calculated Kilograms) 47.6 Weight (Calculated Grams) 71245.2 GI Symptoms GI Symptoms Constipation Difficult in: None Usual diet at home pt stated she eat regular food and cut into pieces by herself. Skin Integrity/Comment: intact Current %PO Negligible < 25% Estimated Nutritional Goals BEE in Kcals: Using Current wt Calories/Kcals/Kg 25-30 Kcals Calculated 4935-9190 Protein: Using Current wt Protein g/k-1.2 Protein Calculated 48-58 Nutritional Problem 1. Problem Problem inadequate food intake Etiology pt refusing pureed food Signs/Symptoms: PO intake <25% Malnutrition Alert Body Fat Depletion (Non-Severe) Mild Depletion Protein-Calorie Malnutrition N/A Is there a minimum of two criteria No selected? Query Text:Check all the applicable criteria. A minimum of two criteria are recommended for diagnosis of either severe or non-severe malnutrition. Intervention/Recommendation Comments 1. Recommend swallow eval for pt. If there is no chewing/ swallowing probelm, will ask MD to change diet order. ELIAS Cardenas made aware. Also RN will correct pt heigh in EMR. 2. Monitor PO intake, wt, labs and skin integrity 3. F/U as high risk in 2-3 days, 10/24-10/25 Expected Outcomes/Goals Expected Outcomes/Goals 1. PO intake to meet at least 75% of nutritional needs. 2. Wt stability, skin to remain intact, labs to approach WNL.
[2017-11-09] MEDS: Escitalopram Oxalate 5 mg Tab PO SCH (09:42)
[2017-11-09] MEDS: Ferrous Sulfate 325 MG TAB PO SCH (09:43)
[2017-11-09] MEDS: POLYETHYLENE GLYCOL 3350 17 GM PACK PO SCH (09:44)
--- NOTE | 2017-11-09 21:30 | Progress Notes ---
DATE: 11/09/2017 SUBJECTIVE: The patient seen, chart reviewed. The patient noted to be calmer, more cooperative, still some periods of confusion, still withdrawn, very unhappy to be in the hospital, wants to leave the hospital, states that she will leave the hospital today, "you cannot stop me." I let her know about the whole status and that she cannot leave until we find her a safe place to go. She states she wants to go back to [place], [place] where she lives by herself. Sleeping fairly well, eating fairly well. MEDICATIONS: Noted. ASSESSMENT: The patient with grave disability, cannot take care of herself. We are trying to help her with placements. We are trying to confirm a safe discharge plan. JOB# [id number]
--- NOTE | 2017-11-10 08:46 | General Progress Note ---
Subjective - Review of Systems Service Date: 11/10/17 Subjective: I am ok. Objective - Results Result Diagrams: 10/28/17 07:05 10/28/17 07:05 Recent Labs: Laboratory Last Values WBC 8.0 Th/cmm (4.8-10.8) 10/28/17 07:05 RBC 3.62 Mil/cmm (3.80-5.20) L 10/28/17 07:05 Hgb 9.5 gm/dL (12-16) L 10/28/17 07:05 Hct 29.2 % (41.0-60) L 10/28/17 07:05 MCV 80.7 fl (81-100) L 10/28/17 07:05 MCH 26.2 pg (27.0-31.0) L 10/28/17 07:05 MCHC Differential 32.5 pg (28.0-36.0) 10/28/17 07:05 RDW 16.3 % (11.5-20.0) 10/28/17 07:05 Plt Count 362 Th/cmm (150-400) 10/28/17 07:05 MPV 8.2 fl 10/28/17 07:05 Neutrophils % 62.7 % (40.0-80.0) 10/28/17 07:05 Lymphocytes % 24.6 % (20.0-50.0) 10/28/17 07:05 Monocytes % 8.6 % (2.0-10.0) 10/28/17 07:05 Eosinophils % 3.4 % (0.0-5.0) 10/28/17 07:05 Basophils % 0.7 % (0.0-2.0) 10/28/17 07:05 Sodium 139 mEq/L (136-145) 10/28/17 07:05 Potassium 4.1 mEq/L (3.5-5.1) 10/28/17 07:05 Chloride 107 mEq/L (98-107) 10/28/17 07:05 Carbon Dioxide 27.4 mEq/L (21.0-31.0) 10/28/17 07:05 Anion Gap 8.7 (7.0-16.0) 10/28/17 07:05 BUN 17 mg/dL (7-25) 10/28/17 07:05 Creatinine 0.5 mg/dL (0.6-1.2) L 10/28/17 07:05 Est GFR ( Amer) TNP 10/28/17 07:05 Est GFR (Non-Af Amer) TNP 10/28/17 07:05 BUN/Creatinine Ratio 34.0 10/28/17 07:05 Glucose 103 mg/dL (70-105) 10/28/17 07:05 POC Glucose 120 MG/DL (70 - 105) H 11/08/17 16:50 Calcium 8.8 mg/dL (8.6-10.3) 10/28/17 07:05 Total Bilirubin 0.2 mg/dL (0.3-1.0) L 10/28/17 07:05 AST 10 U/L (13-39) L 10/28/17 07:05 ALT 7 U/L (7-52) 10/28/17 07:05 Alkaline Phosphatase 83 U/L (34-104) 10/28/17 07:05 Troponin I 0.02 ng/mL (0.01-0.05) 10/28/17 07:05 Total Protein 5.7 gm/dL (6.0-8.3) L 10/28/17 07:05 Albumin 3.2 gm/dL (3.7-5.3) L 10/28/17 07:05 Globulin 2.5 gm/dL 10/28/17 07:05 Albumin/Globulin Ratio 1.3 (1.0-1.8) 10/28/17 07:05 TSH 1.98 uIU/ml (0.34-5.60) 10/22/17 07:20 - Physical Exam Vitals and I&O: Vital Signs Temp 97.2 F 11/10/17 05:56 Pulse 57 11/10/17 05:56 Resp 18 11/10/17 05:56 BP 98/62 11/10/17 05:56 Pulse Ox 98 11/10/17 05:56 Intake & Output 11/09/17 11/10/17 11/10/17 18:59 06:59 18:59 Intake Total 1600 360 Balance 1600 360 Intake: Oral 1600 360 Other: # Voids 4 2 # Bowel Movements 2 Active Medications: Current Medications Acetaminophen (Tylenol) 650 mg PO Q6H PRN PRN Reason: Anesthesia Stop: 12/19/17 23:17 Last Admin: 11/06/17 15:35 Dose: 650 mg Acetaminophen/Hydrocodone Bitart ([place] 5mg/325mg) 1 tab PO Q4HR PRN PRN Reason: pain 4-6 Stop: 12/19/17 23:15 Last Admin: 11/05/17 22:18 Dose: 1 tab Digoxin (Lanoxin) 0.125 mg PO DAILY [facility] Stop: 12/20/17 08:59 Last Admin: 11/09/17 09:43 Dose: 0.125 mg Escitalopram Oxalate (Lexapro) 5 mg PO DAILY [facility] PRN Reason: Protocol Stop: 12/25/17 08:59 Last Admin: 11/09/17 09:42 Dose: 5 mg Ferrous Sulfate (Iron) 325 mg PO DAILY [facility] Stop: 12/27/17 08:59 Last Admin: 11/09/17 09:43 Dose: 325 mg Ibuprofen (Motrin) 600 mg PO Q6HR PRN PRN Reason: 1-3 pain Stop: 12/19/17 23:15 Last Admin: 11/07/17 20:27 Dose: 600 mg Lorazepam (Ativan) 0.5 mg PO Q4HR PRN; Protocol PRN Reason: Anxiety Stop: 11/19/17 23:08 Last Admin: 11/05/17 22:19 Dose: 0.5 mg Polyethylene Glycol (Miralax) 17 gm PO DAILY [facility] Stop: 12/20/17 08:59 Last Admin: 11/09/17 09:44 Dose: 17 gm Quetiapine Fumarate (Seroquel) 25 mg PO PRN PRN; Protocol PRN Reason: Psychosis Stop: 12/19/17 23:15 Last Admin: 11/04/17 15:26 Dose: 25 mg Zolpidem Tartrate (Ambien) 5 mg PO HS PRN PRN Reason: Insomnia Stop: 12/19/17 23:08 Last Admin: 11/07/17 20:28 Dose: 5 mg General: Alert, No acute distress HEENT: Atraumatic Neck: Supple Cardiovascular: Regular rate Lungs: Clear to auscultation Abdomen: Bowel sounds Extremities: Other (Contracture of both feet) Neurological: Other (Non ambulatory) Skin: Other (Warm ) Psych/Mental Status: Other (Confused, not oriented) Assessment/Plan - Assessment Assessment: Patient is awake, alert, calm, in no acute distress. Dx: increased in agitation , Anemia, S/P [place], CHF, CAD, HTN. - Plan Plan: She is follow by Psychiatry, will continue SNF meds, Will continue to monitor. Nutritional Asmnt/Malnutr-PDOC - Dietary Evaluation Malnutrition Findings (Please click <Entered> for more info): Nutritional Asmnt/Malnutrition Start: 10/22/17 15: 22 Text: Status: Complete Freq: Document 10/22/17 15:22 [facility] (Rec: 10/22/17 15:53 [facility] [email or web address]) Nutritional Asmnt/Malnutrition Patient General Information Nutritional Screening High Risk Consult Diagnosis psychosis Pertinent Medical Hx/Surgical Hx CAD, HTN, CHF, [place], stiffness, limited movement of lower extremities, contracture of loer extremities Subjective Information rPt seen lying in bed at time of visit, angry about her food . Pt refused to eat pureed food. Pt has partial teeth noted. height in recorde is 13ft, possible not correct. RN made aware. Pt appeared thin. Current Diet Order/ Nutrition Support pureed Pertinent Medications seroquel Pertinent Labs 10/22 Cr 0.5, glucose 95, POC 117 Nutritional Hx/Data Current Weight (lbs) 47.627 kg Weight (Calculated Kilograms) 47.6 Weight (Calculated Grams) 39071.2 GI Symptoms GI Symptoms Constipation Difficult in: None Usual diet at home pt stated she eat regular food and cut into pieces by herself. Skin Integrity/Comment: intact Current %PO Negligible < 25% Estimated Nutritional Goals BEE in Kcals: Using Current wt Calories/Kcals/Kg 25-30 Kcals Calculated 3353-7927 Protein: Using Current wt Protein g/k-1.2 Protein Calculated 48-58 Nutritional Problem 1. Problem Problem inadequate food intake Etiology pt refusing pureed food Signs/Symptoms: PO intake <25% Malnutrition Alert Body Fat Depletion (Non-Severe) Mild Depletion Protein-Calorie Malnutrition N/A Is there a minimum of two criteria No selected? Query Text:Check all the applicable criteria. A minimum of two criteria are recommended for diagnosis of either severe or non-severe malnutrition. Intervention/Recommendation Comments 1. Recommend swallow eval for pt. If there is no chewing/ swallowing probelm, will ask MD to change diet order. ELIAS Cardenas made aware. Also RN will correct pt heigh in EMR. 2. Monitor PO intake, wt, labs and skin integrity 3. F/U as high risk in 2-3 days, 10/24-10/25 Expected Outcomes/Goals Expected Outcomes/Goals 1. PO intake to meet at least 75% of nutritional needs. 2. Wt stability, skin to remain intact, labs to approach WNL.
[2017-11-10] MEDS: POLYETHYLENE GLYCOL 3350 17 GM PACK PO SCH (09:10)
[2017-11-10] MEDS: Escitalopram Oxalate 5 mg Tab PO SCH (09:10)
[2017-11-10] MEDS: Ferrous Sulfate 325 MG TAB PO SCH (09:10)
--- NOTE | 2017-11-10 17:52 | Discharge Summary ---
DATE OF DISCHARGE: 11/10/2017 DATE OF DISCHARGE: 11/10/2017. JUSTIFICATION FOR HOSPITALIZATION: The patient is coming in from an outside hospital on hold, threatening to kill herself. HISTORY OF PRESENT ILLNESS: An 82-year-old female was apparently making some suicidal comments from [place], [place] noted to be confused, disoriented, making some odd statements, yelling, screaming, stating that staff are doing things like "coming in and dropping heavy things on my feet." PAST PSYCHIATRIC HISTORY: Unclear. FAMILY HISTORY: Unclear. SOCIAL HISTORY: The patient coming from [place], [place], but apparently had been in a assisted facility more recently, the patient is two children. MENTAL STATUS EXAMINATION: Please see full psych eval for details. PROVISIONAL DIAGNOSIS: Mood, unspecified; anxiety, unspecified. MEDICAL: Please see full H and P. HOSPITAL COURSE: After initial assessment, the patient was initiated on medications. Medications were adjusted and titrated, for example, Lexapro and Seroquel as needed. As the hospitalization course progressed, her mood improved, affect improved, getting along better with staff and peers, noted to be eating well. Her yelling episodes robustly decreased. Staff noting that she was significantly calmer, no longer making up allegations. Toward the latter end of her hospitalization, her mood had improved. She was devoid of symptoms. Placement was confirmed and she was discharged. CONDITION UPON DISCHARGE: Improved, allowing ADLs, better eye contact. Mood "okay." Affect constricted. Thought processes were more engaged, but some confusion noted. No SI, no HI, no psychosis. Better insight, better judgment. PROVISIONAL DIAGNOSES: Mood, unspecified; anxiety, unspecified, rule out dementia. MEDICAL: Please see full H and P. PROGNOSIS: The patient follows up with outpatient mental health services and remains compliant with treatment. Prognosis will improve, otherwise guarded. [facility]# [id number]
[2017-11-11] MEDS: Escitalopram Oxalate 5 mg Tab PO SCH (08:13)
[2017-11-11] MEDS: POLYETHYLENE GLYCOL 3350 17 GM PACK PO SCH (08:13)
[2017-11-11] MEDS: Ferrous Sulfate 325 MG TAB PO SCH (08:13)
--- NOTE | 2017-11-11 08:42 | General Progress Note ---
Subjective - Review of Systems Service Date: 11/11/17 Subjective: I am ok. Objective - Results Result Diagrams: 10/28/17 07:05 10/28/17 07:05 Recent Labs: Laboratory Last Values WBC 8.0 Th/cmm (4.8-10.8) 10/28/17 07:05 RBC 3.62 Mil/cmm (3.80-5.20) L 10/28/17 07:05 Hgb 9.5 gm/dL (12-16) L 10/28/17 07:05 Hct 29.2 % (41.0-60) L 10/28/17 07:05 MCV 80.7 fl (81-100) L 10/28/17 07:05 MCH 26.2 pg (27.0-31.0) L 10/28/17 07:05 MCHC Differential 32.5 pg (28.0-36.0) 10/28/17 07:05 RDW 16.3 % (11.5-20.0) 10/28/17 07:05 Plt Count 362 Th/cmm (150-400) 10/28/17 07:05 MPV 8.2 fl 10/28/17 07:05 Neutrophils % 62.7 % (40.0-80.0) 10/28/17 07:05 Lymphocytes % 24.6 % (20.0-50.0) 10/28/17 07:05 Monocytes % 8.6 % (2.0-10.0) 10/28/17 07:05 Eosinophils % 3.4 % (0.0-5.0) 10/28/17 07:05 Basophils % 0.7 % (0.0-2.0) 10/28/17 07:05 Sodium 139 mEq/L (136-145) 10/28/17 07:05 Potassium 4.1 mEq/L (3.5-5.1) 10/28/17 07:05 Chloride 107 mEq/L (98-107) 10/28/17 07:05 Carbon Dioxide 27.4 mEq/L (21.0-31.0) 10/28/17 07:05 Anion Gap 8.7 (7.0-16.0) 10/28/17 07:05 BUN 17 mg/dL (7-25) 10/28/17 07:05 Creatinine 0.5 mg/dL (0.6-1.2) L 10/28/17 07:05 Est GFR ( Amer) TNP 10/28/17 07:05 Est GFR (Non-Af Amer) TNP 10/28/17 07:05 BUN/Creatinine Ratio 34.0 10/28/17 07:05 Glucose 103 mg/dL (70-105) 10/28/17 07:05 POC Glucose 120 MG/DL (70 - 105) H 11/08/17 16:50 Calcium 8.8 mg/dL (8.6-10.3) 10/28/17 07:05 Total Bilirubin 0.2 mg/dL (0.3-1.0) L 10/28/17 07:05 AST 10 U/L (13-39) L 10/28/17 07:05 ALT 7 U/L (7-52) 10/28/17 07:05 Alkaline Phosphatase 83 U/L (34-104) 10/28/17 07:05 Troponin I 0.02 ng/mL (0.01-0.05) 10/28/17 07:05 Total Protein 5.7 gm/dL (6.0-8.3) L 10/28/17 07:05 Albumin 3.2 gm/dL (3.7-5.3) L 10/28/17 07:05 Globulin 2.5 gm/dL 10/28/17 07:05 Albumin/Globulin Ratio 1.3 (1.0-1.8) 10/28/17 07:05 TSH 1.98 uIU/ml (0.34-5.60) 10/22/17 07:20 - Physical Exam Vitals and I&O: Vital Signs Temp 98.8 F 11/10/17 20:00 Pulse 60 11/10/17 20:00 Resp 18 11/10/17 20:00 BP 122/63 11/10/17 20:00 Pulse Ox 96 11/10/17 20:00 Intake & Output 11/10/17 11/11/17 11/11/17 18:59 06:59 18:59 Other: # Voids 3 Active Medications: Current Medications Acetaminophen (Tylenol) 650 mg PO Q6H PRN PRN Reason: Anesthesia Stop: 12/19/17 23:17 Last Admin: 11/06/17 15:35 Dose: 650 mg Acetaminophen/Hydrocodone Bitart (Cal[place] 5mg/325mg) 1 tab PO Q4HR PRN PRN Reason: pain 4-6 Stop: 12/19/17 23:15 Last Admin: 11/05/17 22:18 Dose: 1 tab Digoxin (Lanoxin) 0.125 mg PO DAILY [facility] Stop: 12/20/17 08:59 Last Admin: 11/10/17 09:10 Dose: 0.125 mg Escitalopram Oxalate (Lexapro) 5 mg PO DAILY [facility] PRN Reason: Protocol Stop: 12/25/17 08:59 Last Admin: 11/11/17 08:13 Dose: 5 mg Ferrous Sulfate (Iron) 325 mg PO DAILY [facility] Stop: 12/27/17 08:59 Last Admin: 11/11/17 08:13 Dose: 325 mg Ibuprofen (Motrin) 600 mg PO Q6HR PRN PRN Reason: 1-3 pain Stop: 12/19/17 23:15 Last Admin: 11/07/17 20:27 Dose: 600 mg Lorazepam (Ativan) 0.5 mg PO Q4HR PRN; Protocol PRN Reason: Anxiety Stop: 11/19/17 23:08 Last Admin: 11/10/17 20:47 Dose: 0.5 mg Polyethylene Glycol (Miralax) 17 gm PO DAILY [facility] Stop: 12/20/17 08:59 Last Admin: 11/11/17 08:13 Dose: 17 gm Quetiapine Fumarate (Seroquel) 25 mg PO PRN PRN; Protocol PRN Reason: Psychosis Stop: 12/19/17 23:15 Last Admin: 11/10/17 15:18 Dose: 25 mg Zolpidem Tartrate (Ambien) 5 mg PO HS PRN PRN Reason: Insomnia Stop: 12/19/17 23:08 Last Admin: 11/07/17 20:28 Dose: 5 mg General: Alert, No acute distress HEENT: Atraumatic Neck: Supple Cardiovascular: Regular rate Lungs: Clear to auscultation Abdomen: Bowel sounds Extremities: Other (Contracture of both feet) Neurological: Other (Non ambulatory) Skin: Other (Warm ) Psych/Mental Status: Other (Confused, not oriented) Assessment/Plan - Assessment Assessment: Patient is awake, alert, calm, in no acute distress. Dx: increased in agitation , Anemia, S/P FL, CHF, CAD, HTN. - Plan Plan: She is follow by Psychiatry, will continue SNF meds, Will continue to monitor. Nutritional Asmnt/Malnutr-PDOC - Dietary Evaluation Malnutrition Findings (Please click <Entered> for more info): Nutritional Asmnt/Malnutrition Start: 10/22/17 15: 22 Text: Status: Complete Freq: Document 10/22/17 15:22 ELIZABETH (Rec: 10/22/17 15:53 HEN [email or web address]) Nutritional Asmnt/Malnutrition Patient General Information Nutritional Screening High Risk Consult Diagnosis psychosis Pertinent Medical Hx/Surgical Hx CAD, HTN, CHF, FL, stiffness, limited movement of lower extremities, contracture of loer extremities Subjective Information rPt seen lying in bed at time of visit, angry about her food . Pt refused to eat pureed food. Pt has partial teeth noted. height in recorde is 13ft, possible not correct. RN made aware. Pt appeared thin. Current Diet Order/ Nutrition Support pureed Pertinent Medications seroquel Pertinent Labs 10/22 Cr 0.5, glucose 95, POC 117 Nutritional Hx/Data Current Weight (lbs) 47.627 kg Weight (Calculated Kilograms) 47.6 Weight (Calculated Grams) 38402.2 GI Symptoms GI Symptoms Constipation Difficult in: None Usual diet at home pt stated she eat regular food and cut into pieces by herself. Skin Integrity/Comment: intact Current %PO Negligible < 25% Estimated Nutritional Goals BEE in Kcals: Using Current wt Calories/Kcals/Kg 25-30 Kcals Calculated 4175-2907 Protein: Using Current wt Protein g/k-1.2 Protein Calculated 48-58 Nutritional Problem 1. Problem Problem inadequate food intake Etiology pt refusing pureed food Signs/Symptoms: PO intake <25% Malnutrition Alert Body Fat Depletion (Non-Severe) Mild Depletion Protein-Calorie Malnutrition N/A Is there a minimum of two criteria No selected? Query Text:Check all the applicable criteria. A minimum of two criteria are recommended for diagnosis of either severe or non-severe malnutrition. Intervention/Recommendation Comments 1. Recommend swallow eval for pt. If there is no chewing/ swallowing probelm, will ask MD to change diet order. ELIAS Cardenas made aware. Also RN will correct pt heigh in EMR. 2. Monitor PO intake, wt, labs and skin integrity 3. F/U as high risk in 2-3 days, 10/24-10/25 Expected Outcomes/Goals Expected Outcomes/Goals 1. PO intake to meet at least 75% of nutritional needs. 2. Wt stability, skin to remain intact, labs to approach WNL.
--- NOTE | 2017-11-11 23:43 | Progress Notes ---
DATE: 11/11/2017 The patient was to have been discharged yesterday. Due to delays with confirmation of placement and validating a bed at the snf, there were some delays; however placement has been confirmed today. She has been calm and cooperative. No suicidal gestures. No overt evidence of any psychotic symptoms. We will discharge her to snf today, [facility]. JOB# [id number]
== END 2017-11-11 13:20 | DRG 885 ==
LOC: GERO 21:26
PROVIDERS: ADMIT Psychiatry & Neurology Psychiatry; ATTEND Psychiatry & Neurology Psychiatry
DX: F39 Unspecified mood [affective] disorder (principal); I11.0 Hypertensive heart disease with heart failure; F41.9 Anxiety disorder, unspecified; I25.10 Atherosclerotic heart disease of native coronary artery without angina pectoris; I50.9 Heart failure, unspecified; I25.2 Old myocardial infarction; F03.90 Unspecified dementia, unspecified severity, without behavioral disturbance, psychotic disturbance, mood disturbance, and anxiety; D64.9 Anemia, unspecified
CPT/HCPCS: 36415-UA; 80053-TC; 82948-90; 84443-TC; 84484-TC; 85025-TC; 93005; X3401; Z7610

== ENCOUNTER 2017-12-15 16:32 | Inpatient (IN) | payer BC, MEDICARE ==
--- NOTE | 2017-12-15 16:57 | ED Physician Chart ---
ED Chief Complaint/HPI - Patient Information Date Seen:: 12/15/17 Time Seen:: 16:40 Chief Complaint:: Agitation History of Present Illness:: onset x 3 days of agitation and hostile behavior; no report of trauma, SIs, H/As , S/T, neck pain, C/P, SOB, Abd. Pain, A/N/V/D/C, fever, chills, or urinary s/s Allergies:: Allergies Allergy/AdvReac Type Severity Reaction Status Date / Time No Known Allergies Allergy Verified 10/20/17 22:38 Vitals:: Vital Signs - 8 hr 12/15/17 16:41 Temp 97.9 F HR 78 RR 16 BP 112/60 O2 Sat % 96 Historian:: Patient, EMS Review:: Nurse's Note Reviewed, Old Chart Reviewed, EMS run form Reviewed ED Review of Systems - Review of Systems General/Constitutional: No fever, No chills, No weight loss, No weakness, No diaphoresis, No edema, No loss of appetite Skin: No skin lesions, No rash, No bruising Head: No headache, No light-headedness Eyes: No loss of vision, No pain, No diplopia ENT: No earache, No nasal drainage, No sore throat, No tinnitus Neck: No neck pain, No swelling, No thyromegaly, No stiffness, No mass noted Cardio Vascular: No chest pain, No palpitations, No PND, No orthopnea, No edema Pulmonary: No SOB, No cough, No sputum, No wheezing GI: No nausea, No vomiting, No diarrhea, No pain, No melena, No hematochezia, No constipation, No hematemesis G/U: No dysuria, No frequency, No hematuria, No nacturia Camp Attendant: No vaginal discharge, No abnormal vaginal bleed, No contraction Musculoskeletal: No bone or joint pain, No back pain, No muscle pain Endocrine: No polyuria, No polydipsia Psychiatric: Prior psych history, Depression, Anxiety, No suicidal ideation, No homicidal ideation, No auditory hallucination, No visual hallucination Hematopoietic: No bruising, No lymphadenopathy Allergic/Immuno: No urticaria, No angioedema Neurological: No syncope, No focal symptoms, No weakness, No paresthesia, No headache, No seizure, No dizziness, No confusion, No vertigo ED Past Medical History - Past Medical History Obtainable: Yes Past Medical History: HTN, CAD, Dyslipidemia, PUD/GERD Family History: Diabetes Melitus, HTN Social History: Non Smoker, No Alcohol, No Drug Use, , Care Facility Surgical History: None Psychiatricy History: Depression, Other (Anxiety Disorder) Medication: Reviewed Family Medical History - Family Member not known History Unknown: Yes ED Physical Exam - Physical Examination General/Constitutional: Awake, Well-developed, well-nourished, Alert, No distress, GCS 15, Non-toxic appearing, Ambulatory Head: Atraumatic Eyes: Lids, conjuctiva normal, PERRL, EOMI Skin: Nl inspection, No rash, No skin lesions, No ecchymosis, Well hydrated, No lymphadenopathy ENMT: External ears, nose nl, TM canals nl, Nasal exam nl, Lips, teeth, gums nl , Oropharynx nl, Tonsils nl Neck: Nontender, Full ROM w/o pain, No JVD, No nuchal rigidity, No bruit, No mass, No stridor Other Neck comments:: supple; no meningeal signs Respiratory: Nl effort/Exclusion, Clear to Auscultation, No Wheeze/Rhonchi/Rales Cardio Vascular: No murmur, gallop, rubs, NL S1 S2, Carotid/Femoral/Distal pulses equal bilaterally Other Cardio Vascular comments:: Irregular Irregular Rhythm GI: No tenderness/rebounding/guarding, No organomegaly, No hernia, Normal BS's, Nondistended, No mass/bruits, No McBurney tenderness : No CVA tenderness Extremities: No tenderness or effusion, Full ROM, normal strength in all extremities, No edema, Normal digits & nails Neuro/Psych: Alert/oriented, DTR's symmetric, Normal sensory exam, Normal motor strength, Judgement/insight normal, Mood normal, Normal gait, No focal deficits Other Neuro/Psych comments:: + Psychomotor Agitation; no SIs; Mood/Affect: Stable Misc: Normal back, No paraspinal tenderness ED Labs/Radiology/EKG Results - Lab Results Comments:: unremarkable - EKG Interpretations EKG Time:: 16:53 Rate & Rhythm: 81; Atrial Fibrillation Comments:: PVCs; old ASMI; non-specific st-t changes ED Septic Shock - . Is Septic Shock (SBP<90, OR Lactate>4 mmol\L) present?: No - <6hrs of presentation: Vital Signs: Vital Signs - 8 hr 12/15/17 16:41 Temp 97.9 F HR 78 RR 16 BP 112/60 O2 Sat % 96 ED Reassessment (Disposition) - Reassessment Reassessment Condition:: Improved - Diagnosis Diagnosis:: Dx: Atrial Fibrillation; Psychosis; Medical Clearance; Agitation; Bipolar Disorder - Aftercare/Follow up Instructions Aftercare/Follow-Up Instructions:: Counseled pt regarding lab results/diagnosis & need follow up, Counseled pt & family regarding lab results/diagnosis & need follow up - Patient Disposition Discharge/Transfer:: Acute Care w/in this hosp [facility] Condition at Disposition:: Stable, Improved ED Discharge Plan - Patient Disposition Admit/Discharge/Transfer: Other Care w/in this hosp Condition at Disposition: Stable
[2017-12-15 17:00] LABS: % BASOPHILS 0.7 % (0.0-2.0); % EOSINOPHILS 2.6 % (0.0-5.0); % LYMPHOCYTES 20.5 % (20.0-50.0); % MONOCYTES 9.9 % (2.0-10.0); % NEUTROPHILS 66.3 % (40.0-80.0); BASOPHILE ABSOLUTE 0.1 Th/cumm (0-0.2); EOSINOPHILE ABSOLUTE 0.2 Th/cmm (0.1-0.4); HEMATOCRIT 38.2 % (41.0-60); HEMOGLOBIN 12.5 gm/dL (12-16); LYMPHOCYTE ABSOLUTE 1.8 Th/cmm (1.5-3.0); MEAN CELL VOLUME 82.9 fl (81-100); MEAN CORPUSCULAR HEMOGLOBIN 27.2 pg (27.0-31.0); MEAN CORPUSCULAR HGB CONC 32.8 pg (28.0-36.0); MEAN PLATELET VOLUME 8.4 fl; MONOCYTE ABSOLUTE 0.9 Th/cmm (0.3-1.0); NEUTROPHILE ABSOLUTE 5.6 Th/cmm (1.8-8.0); PLATELET COUNT 295 Th/cmm (150-400); RED BLOOD COUNT 4.61 Mil/cmm (3.80-5.20); RED CELL DISTRIBUTION WIDTH 18.2 % (11.5-20.0); WHITE BLOOD COUNT 8.6 Th/cmm (4.8-10.8)
[2017-12-15 17:22] LABS: A1C % 5.5 % (4.0-6.0)
[2017-12-15 17:28] LABS: ACETAMINOPHEN < 10.0 ug/mL (10.0-30.0); ALB/GLOB RATIO 1.3 (1.0-1.8); ALBUMIN 3.6 gm/dL (3.7-5.3); ALKALINE PHOSPHATASE 110 U/L (34-104); BILIRUBIN,TOTAL 0.3 mg/dL (0.3-1.0); BUN - UREA NITROGEN 20 mg/dL (7-25); CALCIUM SERUM 9.1 mg/dL (8.6-10.3); CARBON DIOXIDE 25.9 mEq/L (21.0-31.0); CHLORIDE 109 mEq/L (98-107); CHOLESTEROL 157 mg/dL (<200); CREATININE - SERUM 0.7 mg/dL (0.6-1.2); GLUCOSE 143 mg/dL (70-105); HDL -HIGH DENSITY LIPOPROTEIN 49 mg/dL (23-92); POTASSIUM SERUM 3.9 mEq/L (3.5-5.1); SGOT 13 U/L (13-39); SGPT/ALT 9 U/L (7-52); SODIUM SERUM 141 mEq/L (136-145); TOTAL PROTEIN,SERUM 6.3 gm/dL (6.0-8.3); TRIGLYCERIDES 76 mg/dL (<150)
[2017-12-15 17:30] LABS: SALICYLATES (ASPIRIN) < 25.0 mg/L (30.0-100.0)
[2017-12-15] MEDS ORDERED: Maalox 30 mL Cup PO PRN (18:18)
[2017-12-15] MEDS ORDERED: Magnesium Hydroxide (MOM) 30 mL UDC PO PRN (18:18)
[2017-12-15] MEDS ORDERED: Hydrocodone/APAP 5mg/325mg Tab PO PRN (18:20)
[2017-12-15 19:12] VITALS: BP 155/102
[2017-12-16] MEDS: Ferrous Sulfate 325 MG TAB PO SCH (09:21)
[2017-12-16] MEDS: Multivitamin Tab PO SCH (09:21)
[2017-12-16] MEDS: Escitalopram Oxalate 5 mg Tab PO SCH (09:21)
[2017-12-16] MEDS: Pantoprazole 40 mg EC Tab PO SCH (09:22)
[2017-12-16] MEDS: POLYETHYLENE GLYCOL 3350 17 GM PACK PO SCH (09:22)
[2017-12-17] MEDS: Multivitamin Tab PO SCH (08:58)
[2017-12-17] MEDS: Pantoprazole 40 mg EC Tab PO SCH (08:58)
[2017-12-17] MEDS: Ferrous Sulfate 325 MG TAB PO SCH (08:58)
[2017-12-17] MEDS: Escitalopram Oxalate 5 mg Tab PO SCH (08:59)
[2017-12-17] MEDS: POLYETHYLENE GLYCOL 3350 17 GM PACK PO SCH (08:59)
--- NOTE | 2017-12-17 09:50 | History & Physical ---
ADMIT DATE: 12/15/2017 HISTORY OF PRESENT ILLNESS: The patient is an 82-year-old female. PAST MEDICAL HISTORY: Significant for atrial fibrillation, peptic ulcer disease, gastritis, arthritis, and anemia. SOCIAL HISTORY: No documented smoking or alcohol abuse. FAMILY HISTORY: Not available. REVIEW OF SYSTEMS: Poor historian due to advanced dementia. No vomiting, no diarrhea, no melena, no hematochezia. No palpitation, no dizziness, no fall. OBSTETRIC HISTORY: P2+0, menses are postmenopausal. PHYSICAL EXAMINATION: GENERAL: Average female in obvious respiratory distress. VITAL SIGNS: Include a blood pressure of 110/70, heart rate 80, respiration rate of 18. SKIN: Showed no obvious cellulitis. HEENT: Normal conjunctivae. NECK: Supple. LUNGS: Clear. HEART: First and second present. ABDOMEN: Soft. Bowel sounds are good. EXTREMITIES: Show arthritis. NEUROLOGIC: The patient has no focal motor deficit. LABORATORY DATA: Include white count 8.6, hemoglobin 12.5, hematocrit 38.2, platelet count of 295. Sodium 141, potassium 3.9, chloride 109, bicarb 25.9, BUN 20, creatinine 0.7, blood sugar 143. MEDICAL DIAGNOSES: Include atrial fibrillation, peptic ulcer disease, gastritis, arthritis, and anemia. CURRENT MEDICATIONS: Include milk of magnesia, Protonix, MiraLax, ferrous sulfate, Lanoxin, Maalox, [place]. JOB# [id number]
[2017-12-17] MEDS ORDERED: Haloperidol Lactate 5 mg/mL 1mL Vial IM ONE (11:00)
[2017-12-17] MEDS ORDERED: Haloperidol Lactate 5 mg/mL 1mL Vial ONE (11:50)
--- NOTE | 2017-12-17 20:04 | Psychosocial Evaluation ---
DATE OF SERVICE: 12/16/2017 JUSTIFICATION FOR HOSPITALIZATION: The patient sent from [facility] facility because of agitation, unruly behaviors, and escalation of behaviors. Staff could not control her. CHIEF COMPLAINT: Decompensation and agitation. HISTORY OF PRESENT ILLNESS: An 82-year-old female with unknown diagnosis of dementia, but she was unruly, agitated, and combative. Staff could not control her behaviors. On [id number], the patient refusing to speak with me in bed, does not want to talk to me, and very upset. Staff noting she has been resting comfortably today. No combative behavior this morning. PAST PSYCHIATRIC HISTORY: It seems that there is a history of behavioral disturbances possibly depression and anxiety. FAMILY HISTORY: Unknown. SOCIAL HISTORY: Details unclear. The patient refusing to speak with me. She is residing in a [facility] facility in the [facility]. Unclear drugs, alcohol or tobacco. MEDICATIONS: Noted. MEDICAL HISTORY: Noted and reviewed. Please see full H and P by Dr. Carrillo. MENTAL STATUS EXAMINATION: Stated age, little eye contact, refusing to speak with me. Mood, refusing. Affect, flat. Thought processes were hard to assess. Thought content was hard to assess. Insight and judgment diminished. Impulse control is poor. PROVISIONAL DIAGNOSES: Mood, unspecified; anxiety, unspecified; unclear diagnosis of dementia; also psychosis, unspecified. Under medical, please see full H and P. Pain, unknown. ESTIMATED LENGTH OF STAY: 7-10 days. ASSESSMENT: The patient was combative, agitated, unsafe for a lower level of care, refusing to speak with me today. PLAN: We will continue to monitor, increase collateral, titrate and adjust medications. CONDITIONS FOR DISCHARGE: Improved mood, improved affect, better control of her combative symptoms and agitation. JOB# [id number]
--- NOTE | 2017-12-18 04:06 | Progress Notes ---
DATE: 12/17/2017 CHIEF COMPLAINT: No chest pain. No short of breath. No nausea. No vomiting. No palpitation. No dizziness. No recent fall. PHYSICAL EXAMINATION: VITAL SIGNS: Stable. LUNGS: Clear. Bilateral good air entry. No adventitious sounds. HEART: First and second heart sounds, irregularly irregular. No gallop. No rub. S1, S2 are present. ABDOMEN: Soft. Bowel sounds are good. EXTREMITIES: Show arthritis. NEUROLOGIC: No focal deficits. MEDICAL DIAGNOSES: Include atrial fibrillation, , gastritis, arthritis, and anemia. PLAN: The patient will continue current medicines. JOB# [id number]
--- NOTE | 2017-12-18 05:03 | Progress Notes ---
DATE: 12/17/2017 SUBJECTIVE: The patient agitated today requiring emergency Haldol today, confused, forgetful, combative, lashing out at others. The patient making nonsensical statements, crying episodes, talking about rudi bears, noted to be disorganized. On [id number], the patient is confused, sleeping, difficult to arouse recently given emergency order of Haldol. ASSESSMENT: The patient remains symptomatic, ongoing aggressive symptoms, not safe for a lower level of care. We will continue to monitor. Continue dosing of Seroquel. Given ongoing symptoms, she is not safe for discharge. We will titrate and adjust medications. JOB# [id number]
[2017-12-18] MEDS: POLYETHYLENE GLYCOL 3350 17 GM PACK PO SCH (09:16)
[2017-12-18] MEDS: Ferrous Sulfate 325 MG TAB PO SCH (09:19)
[2017-12-18] MEDS: Pantoprazole 40 mg EC Tab PO SCH (09:20)
[2017-12-18] MEDS: Multivitamin Tab PO SCH (09:20)
[2017-12-18] MEDS: Escitalopram Oxalate 5 mg Tab PO SCH (09:30)
[2017-12-18] MEDS ORDERED: Haloperidol Lactate 5 mg/mL 1mL Vial IM ONE (13:27)
[2017-12-18] MEDS ORDERED: Haloperidol Lactate 5 mg/mL 1mL Vial ONE (13:27)
[2017-12-19] MEDS: Multivitamin Tab PO SCH (09:39)
[2017-12-19] MEDS: Ferrous Sulfate 325 MG TAB PO SCH (09:39)
[2017-12-19] MEDS: Escitalopram Oxalate 5 mg Tab PO SCH (09:39)
[2017-12-19] MEDS: POLYETHYLENE GLYCOL 3350 17 GM PACK PO SCH (09:40)
[2017-12-19] MEDS: Pantoprazole 40 mg EC Tab PO SCH (09:41)
--- NOTE | 2017-12-19 11:48 | Progress Notes ---
DATE: 12/18/2017 CHIEF COMPLAINT: No palpitation, no dizziness, no chest pain, no short of breath, no nausea, no vomiting, no abdominal pain, no recent fall. Psych consult reviewed. PHYSICAL EXAMINATION: VITAL SIGNS: Stable. LUNGS: Clear. HEART: First and second irregularly irregular. No gallop. No systolic present. ABDOMEN: Soft. Bowel sounds appeared good. EXTREMITIES: Show arthritis. NEUROLOGIC: The patient has dementia. MEDICAL DIAGNOSES: Include atrial fibrillation, peptic ulcer disease, gastritis, arthritis, osteoporosis, anemia and dementia. TREATMENT PLAN: Continue medicines as per SEP. JOB# [id number]
--- NOTE | 2017-12-19 16:44 | Progress Notes ---
DATE: 12/18/2017 SUBJECTIVE: The patient seen, chart reviewed, discussed with staff. The patient remains symptomatic, agitated, requiring emergency medications today, trying to hit staff, yelling, screaming, unruly, staff having a difficult time approaching her, highly confused and disoriented. ASSESSMENT: The patient remains symptomatic, unruly, agitated, not safe for a lower level of care. PLAN: The patient required a Haldol cocktail yesterday, requiring Haldol cocktail today. We will increase Seroquel dosing today. JOB# [id number]
--- NOTE | 2017-12-19 21:14 | Progress Notes ---
DATE: SUBJECTIVE: The patient was seen, chart reviewed, discussed with staff. The patient remains agitated, aggressive, required emergency medications yesterday. The patient is still aggressive. On exam, per staff this morning, she is calm, cooperative, very confused, disoriented, still unruly at times, psychotic agitation, confusion, forgetfulness, poor orientation. ASSESSMENT: The patient remains combative, agitated, requiring emergency Haldol over the past 24 hours. Recent dose increase of Seroquel. Therefore, we will continue to monitor. Continue increased dose of Seroquel given recent dose increase. The patient still remains dangerous. JOB# [id number]
[2017-12-20] MEDS: POLYETHYLENE GLYCOL 3350 17 GM PACK PO SCH (09:01)
[2017-12-20] MEDS: Multivitamin Tab PO SCH (09:18)
[2017-12-20] MEDS: Escitalopram Oxalate 5 mg Tab PO SCH (09:18)
[2017-12-20] MEDS: Ferrous Sulfate 325 MG TAB PO SCH (09:19)
[2017-12-20] MEDS: Pantoprazole 40 mg EC Tab PO SCH (09:19)
--- NOTE | 2017-12-21 02:19 | Progress Notes ---
DATE: 12/20/2017 SUBJECTIVE: The patient is currently in the hospital, noted to be agitated, combative at times, requiring multiple rounds of emergency medications, seems to have been calm overnight, slept for about 8 hours, confused on exam, disoriented on exam, still with some yelling episodes, highly impulsive, unpredictable. Medications were noted including dosages and frequencies. ASSESSMENT: The patient remains symptomatic, still aggressive, combative. PLAN: We will continue to monitor. The patient's ongoing behaviors are considered an acute safety risk at this time unable to be cared for at a lower level. JOB# [id number]
[2017-12-21] MEDS: POLYETHYLENE GLYCOL 3350 17 GM PACK PO SCH (09:15)
[2017-12-21] MEDS: Ferrous Sulfate 325 MG TAB PO SCH (09:21)
[2017-12-21] MEDS: Multivitamin Tab PO SCH (09:21)
[2017-12-21] MEDS: Pantoprazole 40 mg EC Tab PO SCH (09:21)
[2017-12-21] MEDS: Escitalopram Oxalate 5 mg Tab PO SCH (09:21)
--- NOTE | 2017-12-22 07:01 | Progress Notes ---
DATE: 12/21/2017 The patient in the hospital, agitated, yelling, screaming at this time, disrobing, very unruly. The patient has been requiring emergency medications upon initial presentation. She has total care, very forgetful, confused. She slept for about 8 hours last night and was calm last night, but this morning, screaming, very loud, disorganized, nonsensical. ASSESSMENT: The patient remains symptomatic, still unruly, ongoing concerns in regards to her behaviors. We will continue to monitor. Medications were noted. I will be increasing her dosing of Seroquel. JOB# [id number]
[2017-12-22] MEDS: Escitalopram Oxalate 5 mg Tab PO SCH (08:55)
[2017-12-22] MEDS: POLYETHYLENE GLYCOL 3350 17 GM PACK PO SCH (08:55)
[2017-12-22] MEDS: Multivitamin Tab PO SCH (08:55)
[2017-12-22] MEDS: Pantoprazole 40 mg EC Tab PO SCH (08:56)
[2017-12-22] MEDS: Ferrous Sulfate 325 MG TAB PO SCH (08:57)
--- NOTE | 2017-12-23 03:29 | Progress Notes ---
DATE: 12/22/2017 The patient in the hospital, noted to be agitated, yelling, screaming, she is rambling, talking about books today, non sequiturs, disjointed and disorganized thought processes. Nursing notes that she slept fairly well last night, still with some yelling and screaming episodes, highly impulsive and unpredictable, currently total care, sometimes resistant to care. The patient has required emergency medications in the hospital. ASSESSMENT: The patient remains symptomatic, remains unruly, yelling, not safe for a lower level of care. Medications were reviewed. We will monitor and follow up. JOB# [id number]
[2017-12-23] MEDS: Pantoprazole 40 mg EC Tab PO SCH (08:27)
[2017-12-23] MEDS: Multivitamin Tab PO SCH (08:27)
[2017-12-23] MEDS: Ferrous Sulfate 325 MG TAB PO SCH (08:28)
[2017-12-23] MEDS: Escitalopram Oxalate 5 mg Tab PO SCH (08:28)
[2017-12-23] MEDS: POLYETHYLENE GLYCOL 3350 17 GM PACK PO SCH (08:30)
--- NOTE | 2017-12-23 09:11 | Consultation ---
DATE OF CONSULTATION: 12/22/2017 INTERNAL MEDICINE CONSULTATION The patient is an 82-year-old female seen at [facility]. CURRENT MEDICAL PROBLEMS: Include atrial fibrillation, peptic ulcer disease, gastritis, arthritis, osteoporosis, anemia and dementia. The patient is asymptomatic, no palpitation, no dizziness, no vomiting, no diarrhea, no melena, no hematochezia. No recent falls. PHYSICAL EXAMINATION: VITAL SIGNS: Stable. LUNGS: Clear. HEART: First and second heart sounds, irregularly irregular. No gallop. No systolic present. ABDOMEN: Soft, minimal epigastric tenderness. Bowel sounds present, good. EXTREMITIES: Show arthritis. NEUROLOGIC: Dementia. MEDICAL DIAGNOSES: As dictated above. TREATMENT PLAN: The patient continue medicines as per MAR. Continue with psych followup and internal medicine consultation followup. JOB# [id number]
--- NOTE | 2017-12-24 02:15 | Progress Notes ---
DATE: 12/23/2017 SUBJECTIVE: The patient is an 82-year-old female seen at [facility]. No change medically. No new symptoms. No palpitations or dizziness. No recent fall. No acute infection. OBJECTIVE: VITAL SIGNS: Stable. LUNGS: Clear. HEART: First present. ABDOMEN: Soft, bowel sounds present. EXTREMITIES: Show arthritis. ASSESSMENT: The patient has dementia. Final medical diagnoses include history of atrial fibrillation, peptic ulcer disease, arthritis, osteoporosis and anemia. The patient will continue medicines as per SEP. PLAN: The patient will continue psych management. JOB# [id number]
--- NOTE | 2017-12-24 04:14 | Progress Notes ---
DATE: 12/23/2017 The patient in the hospital, noted to be agitated, yelling episodes, combative behaviors, seemingly calmer on exam. Slept for about 8 hours last night. Poorly oriented, sometimes unruly but generally calmer versus her admission. The patient disoriented, believes she is in the "in the basement." The patient requiring high level of care, total care with ADLs. Medications were noted. ASSESSMENT: The patient remains symptomatic, still unruly at times, agitated. PLAN: We will continue to monitor. We will titrate and adjust medications, recent dose increase of medications do seem to be calming the patient down. JOB# [id number]
[2017-12-24] MEDS: Multivitamin Tab PO SCH (08:37)
[2017-12-24] MEDS: Pantoprazole 40 mg EC Tab PO SCH (08:37)
[2017-12-24] MEDS: POLYETHYLENE GLYCOL 3350 17 GM PACK PO SCH (08:37)
[2017-12-24] MEDS: Ferrous Sulfate 325 MG TAB PO SCH (08:38)
[2017-12-24] MEDS: Escitalopram Oxalate 5 mg Tab PO SCH (08:38)
--- NOTE | 2017-12-25 07:21 | Consultation ---
DATE OF CONSULTATION: 12/24/2017 INTERNAL MEDICINE CONSULTATION FOLLOWUP CHIEF COMPLAINT: No change in condition. No shortness breath, no nausea, no vomiting, no palpitation, or dizziness. PHYSICAL EXAMINATION: VITAL SIGNS: Stable. LUNGS: Clear. HEART: First and second irregularly irregular. No gallop or rub. Systolic murmur present. ABDOMEN: Soft, minimal epigastric tenderness. Bowel sounds are good. EXTREMITIES: Show arthritis. NEUROLOGICAL: The patient has dementia. MEDICAL DIAGNOSES: Atrial fibrillation, peptic ulcer disease, arthritis, and anemia. TREATMENT PLAN: The patient to continue current medication. Continue psych treatment. JOB# [id number]
[2017-12-25] MEDS: Multivitamin Tab PO SCH (08:36)
[2017-12-25] MEDS: Escitalopram Oxalate 5 mg Tab PO SCH (08:36)
[2017-12-25] MEDS: Ferrous Sulfate 325 MG TAB PO SCH (08:36)
[2017-12-25] MEDS: POLYETHYLENE GLYCOL 3350 17 GM PACK PO SCH (08:36)
[2017-12-25] MEDS: Pantoprazole 40 mg EC Tab PO SCH (08:37)
--- NOTE | 2017-12-25 17:55 | Progress Notes ---
DATE: 12/24/2017 SUBJECTIVE: The patient seen, chart reviewed, discussed with staff. The patient is currently in the hospital, remains upset, unruly, agitated at times, yells and screams. She does seem significantly calmer, she is following unit rules and directions better and she continues to yell and scream. However, she is taking her medications. Tolerant to medications. No overt side effects. Sleeping fairly well. Mostly isolative, withdrawn. Medications were noted. Discussed with staff. ASSESSMENT: The patient remains symptomatic, still unruly, yelling and screaming, but significantly calmer. The patient has been need for emergency medications over 24 hours. PLAN: We will continue to monitor. The patient remains confused and disoriented. We will continue to work on the patient's coping and insight. JOB# [id number]
[2017-12-25] MEDS: Albuterol/Ipratropium Neb 3 ML AERS HHN SCH (19:06)
--- NOTE | 2017-12-25 21:18 | Progress Notes ---
DATE: 12/25/2017 INTERNAL MEDICINE CONSULTATION CHIEF COMPLAINT: No palpitation, no dizziness, no chest pain, no short of breath, no fall. No dizziness. PHYSICAL EXAMINATION: VITAL SIGNS: Stable. LUNGS: Clear. HEART: First and second heart sounds are irregularly irregular. No gallop, no rub. Systolic murmur present. ABDOMEN: Soft, no tenderness. Bowel sounds present, good. EXTREMITIES: Show arthritis. ASSESSMENT: The patient has dementia. MEDICAL DIAGNOSES: Remain the same; history of atrial fibrillation, peptic ulcer disease, gastritis, arthritis, osteoporosis, and anemia. TREATMENT PLAN: The patient continue psych management. Rest of medicines as per SEP. JOB# [id number]
--- NOTE | 2017-12-26 00:49 | Progress Notes ---
DATE: 12/25/2017 SUBJECTIVE: The patient remains in the hospital, symptomatic, impulsive and unpredictable, ongoing symptoms that are unruly at times, but today she has been somewhat lethargic, tired. Chest x-ray has been ordered. Staff concerned about her breathing. Pending chest x-ray results. Medications were noted. Sleeping fairly well, eating with some prompting. The patient to continuing to require redirection and prompting. Mostly isolative and withdrawn. ASSESSMENT: The patient remains symptomatic, isolative, still noted to be highly impulsive, confused. PLAN: We will continue to monitor. Pending chest x-ray results. We will lower dose of Seroquel slightly. JOB# [id number]
--- NOTE | 2017-12-26 00:52 | Progress Notes ---
DATE: 12/25/2017 The patient in the hospital. Still aggressive, agitated, poor impulse control. Staff noting she seems somewhat more lethargic today, tired, concerns about her . Chest x-ray has been ordered. The patient is very confused on exam, disoriented, still with ongoing psychotic symptoms, still nonsensical, seems to be sleeping well, eating with some prompting, still requiring a lot of prompting and redirection by staff. ASSESSMENT: The patient remains symptomatic, somewhat tired today, remains impulsive, highly unpredictable. We will continue to monitor. I will slightly lower dose of Seroquel today. Medications were noted. JOB# [id number]
[2017-12-26] MEDS: Albuterol/Ipratropium Neb 3 ML AERS HHN SCH ×2 (06:28→19:46)
--- NOTE | 2017-12-26 09:07 | Diagnostic Imaging Report ---
Portable chest x-ray HISTORY: Shortness of breath The heart is enlarged. Atherosclerotic calcination seen in the aorta. No acute focal pulmonary processes. Dislocation right humeral head noted. Severe arthritic changes noted about the left shoulder. IMPRESSION: 1. Dislocation right humeral head 2. No focal pulmonary processes 3. Cardiomegaly with atherosclerotic vascular changes
[2017-12-26] MEDS: POLYETHYLENE GLYCOL 3350 17 GM PACK PO SCH (09:29)
[2017-12-26] MEDS: Escitalopram Oxalate 5 mg Tab PO SCH (09:30)
[2017-12-26] MEDS: Multivitamin Tab PO SCH (09:30)
[2017-12-26] MEDS: Ferrous Sulfate 325 MG TAB PO SCH (09:30)
[2017-12-26] MEDS: Pantoprazole 40 mg EC Tab PO SCH (09:30)
--- NOTE | 2017-12-27 02:21 | Progress Notes ---
DATE: 12/26/2017 SUBJECTIVE: The patient was seen and evaluated. The patient's chart reviewed. This is Dr. Antoine covering for Dr. Valencia. Today, on [id number] evaluation, the patient reported that the recent decrease in medication made her a little bit less drowsy with better efficacy. Today, on [id number] evaluation, the patient reported she is looking for a job and her goal right now is to get a job. Disorganized, irritable at times, less drowsy compared to what was noted yesterday, mostly isolated and withdrawn. MENTAL STATUS EXAMINATION: Isolated, withdrawn, disorganized, neurocognitively impaired. ASSESSMENT AND PLAN: The patient with a history of neurocognitive impairment, ____ disturbances. CURRENT MEDICATIONS: Include digoxin, Lexapro 5 mg a day, mag ox, pantoprazole, quetiapine 25 mg p.o. b.i.d., ____ Seroquel 25 mg daily and 50 mg at nighttime which she is able to tolerate from the recent reduction from 75 at bedtime. We will continue monitoring and evaluating as medication was recently adjusted to target the patient's behavioral disturbances. JOB# [id number]
[2017-12-27] MEDS: Albuterol/Ipratropium Neb 3 ML AERS HHN SCH ×2 (07:30→19:25)
[2017-12-27] MEDS: POLYETHYLENE GLYCOL 3350 17 GM PACK PO SCH (08:55)
[2017-12-27] MEDS: Escitalopram Oxalate 5 mg Tab PO SCH (08:57)
[2017-12-27] MEDS: Ferrous Sulfate 325 MG TAB PO SCH (08:58)
[2017-12-27] MEDS: Multivitamin Tab PO SCH (08:59)
[2017-12-27] MEDS: Pantoprazole 40 mg EC Tab PO SCH (08:59)
--- NOTE | 2017-12-27 23:57 | Progress Notes ---
DATE: 12/27/2017 SUBJECTIVE: The patient was seen and evaluated. The patient's chart reviewed. This is Dr. Antoine covering for Dr. Valencia. Today on [id number] evaluation, the patient continues to intermittently communicate, but believes that she is here looking for a job which is very consistent with yesterday. When the patient is observed she will have conversation on her own, talking to herself, but less irritable and continues to be disorganized. MENTAL STATUS EXAMINATION: Irritable, observed to be slightly responding neurocognitively impaired. ASSESSMENT AND PLAN: The patient is an 82-year-old female with severe dementia, whose adjustments of medications have helped a lot in regard to over sedation and although less drowsy, she still needs a lot of ADL redirections. We will continue monitoring and evaluating. We will continue working very closely with mental renal case manager for safe disposition plan as the patient continues to further stabilize. JOB# [id number]
[2017-12-28] MEDS: Albuterol/Ipratropium Neb 3 ML AERS HHN SCH ×2 (06:21→19:18)
[2017-12-28] MEDS: Pantoprazole 40 mg EC Tab PO SCH (09:34)
[2017-12-28] MEDS: Escitalopram Oxalate 5 mg Tab PO SCH (09:34)
[2017-12-28] MEDS: Multivitamin Tab PO SCH (09:34)
[2017-12-28] MEDS: Ferrous Sulfate 325 MG TAB PO SCH (09:35)
[2017-12-28] MEDS: POLYETHYLENE GLYCOL 3350 17 GM PACK PO SCH (09:35)
--- NOTE | 2017-12-28 22:47 | Progress Notes ---
DATE: 12/28/[address] Valencia. Case discussed with staff of the patient, reviewed records. This is an 82-year-old female who was admitted on 12/15/2017 because of agitation, unruly behavior, escalation of behavior. She came from a [facility] facility where they are unable to control her behavior, where they diagnosed dementia. The patient is impulsive, unpredictable, needing redirection. She has rambling speech, unable to take care of herself or make safe plan for self-care. She is on Lexapro 5 mg daily and Seroquel 25 mg daily and 50 mg at bedtime with no side effects, no sedation, no nausea. She continues to have poor insight, unable to make safe plan for self-care, unpredictable and impulsive. She also had atrial fibrillation, peptic ulcer disease, GERD and anemia and we will continue to work with the patient in group therapy, milieu therapy, and adjust medications as needed. JOB# [id number]
[2017-12-29] MEDS: Albuterol/Ipratropium Neb 3 ML AERS HHN SCH ×2 (07:11→19:00)
[2017-12-29] MEDS: Escitalopram Oxalate 5 mg Tab PO SCH (10:08)
[2017-12-29] MEDS: Ferrous Sulfate 325 MG TAB PO SCH (10:09)
[2017-12-29] MEDS: Multivitamin Tab PO SCH (10:10)
[2017-12-29] MEDS: Pantoprazole 40 mg EC Tab PO SCH (10:10)
[2017-12-29] MEDS: POLYETHYLENE GLYCOL 3350 17 GM PACK PO SCH (10:10)
--- NOTE | 2017-12-29 21:52 | Progress Notes ---
DATE: 12/29/[address] Valencia. Case was discussed with staff of the patient, reviewed records. The patient continues to be confused, rambling continues to be unable to make safe plans for self-care. Continues to be unpredictable, impulsive. She stays in bed, very poor insight. Unable to make safe plan for self-care. No side effects of the medication. No sedation, no nausea. Continues to unable to participate in meaningful conversation. PLAN: We will continue to work with the patient in group therapy, milieu therapy, and adjust the medications as needed. JOB# [id number]
--- NOTE | 2017-12-30 03:11 | Progress Notes ---
DATE: 12/29/2017 SUBJECTIVE: No chest pain, not short of breath. No nausea. No vomiting. No melena. No hematochezia. No dizziness. No falls. OBJECTIVE: VITAL SIGNS: Stable. LUNGS: Clear. HEART: First and second irregularly irregular. No gallop ____ present. ABDOMEN: Soft. Bowel sounds present and good. EXTREMITIES: Show arthritis. ASSESSMENT: The patient has dementia. Medical diagnoses remain the same as atrial fibrillation, peptic ulcer disease, arthritis, anemia, and dementia. Continue current medicines. Psych consult reviewed. JOB# [id number]
[2017-12-30] MEDS: Albuterol/Ipratropium Neb 3 ML AERS HHN SCH ×2 (07:26→18:49)
--- NOTE | 2017-12-30 10:47 | Progress Notes ---
DATE: 12/30/2017 Case was discussed with staff of the patient, reviewed records. The patient continues to be confused, demented. Continues to be unpredictable and impulsive, needing redirection, talking to herself. In general, redirectable. At times she is cognitively impaired. Unable to make safe plan for self-care. Continues to be depressed, overwhelmed. I will be increasing Lexapro dose to 10 mg a day and no side effects with the medication, no sedation, no nausea, and no extrapyramidal symptoms. I will continue outpatient group therapy, milieu therapy, adjust medication as needed. JOB# [id number]
--- NOTE | 2017-12-31 04:00 | Progress Notes ---
DATE: 12/30/2017 INTERNAL MEDICINE CONSULT FOLLOWUP CHIEF COMPLAINT: No new symptoms. No palpitation, no dizziness, no falls. PHYSICAL EXAMINATION: Vital signs: Stable. LUNGS: Clear. HEART: First and second heart sounds are irregularly irregular. No gallop. No systolic present. ABDOMEN: Soft. Bowel sounds present, good. EXTREMITIES: Show arthritis. MEDICAL DIAGNOSES: Remain the same, atrial fibrillation, peptic ulcer disease, arthritis, anemia. PLAN: Continue current treatment. Psych consult reviewed. JOB# [id number]
[2017-12-31] MEDS: Albuterol/Ipratropium Neb 3 ML AERS HHN SCH ×2 (07:24→19:03)
[2017-12-31] MEDS: Ferrous Sulfate 325 MG TAB PO SCH (09:58)
[2017-12-31] MEDS: Pantoprazole 40 mg EC Tab PO SCH (09:59)
[2017-12-31] MEDS: Multivitamin Tab PO SCH (09:59)
[2017-12-31] MEDS: POLYETHYLENE GLYCOL 3350 17 GM PACK PO SCH (14:11)
--- NOTE | 2017-12-31 22:07 | Progress Notes ---
DATE: 12/31/2017 SUBJECTIVE: Case discussed with staff of the patient, reviewed records. Covering for Dr. Valencia. The patient continues to be confused, demented. Continues to be unable to make safe plan for self-care. Continues to have poor insight, unable to make safe plan for self-care. She is demented and confused. I was told that she will be going to [facility] and they have a space for her, so she continues to do well. I do have plan for discharge tomorrow and we will continue outpatient group therapy, milieu therapy, and adjust her medication as needed. JOB# [id number]
--- NOTE | 2018-01-01 12:51 | Progress Notes ---
DATE: 12/31/2017 INTERNAL MEDICINE FOLLOWUP SUBJECTIVE: The patient is an 82-year-old female seen at [facility]. No new symptoms. No chest pain, no shortness of breath. No nausea, vomiting, no melena, no hematochezia. No dizziness, no fall. OBJECTIVE: VITAL SIGNS: Stable. LUNGS: Clear. HEART: First and second irregularly irregular. No gallop or systolic present. ABDOMEN: Soft. Bowel sounds are present, good. EXTREMITIES: Show arthritis. NEUROLOGIC: The patient has no focal motor deficit. MEDICAL DIAGNOSES: Atrial fibrillation, peptic ulcer disease, arthritis, anemia, and osteoporosis. We will continue medicines as per SEP. Continue with the psych treatment. [facility]# [id number]
== END 2017-12-31 19:40 | DRG 885 ==
LOC: ER 16:32 → GERO 17:20
PROVIDERS: ADMIT Psychiatry & Neurology Psychiatry; ATTEND Psychiatry & Neurology Psychiatry
DX: F39 Unspecified mood [affective] disorder (principal); I48.91 Unspecified atrial fibrillation; I10 Essential (primary) hypertension; I25.10 Atherosclerotic heart disease of native coronary artery without angina pectoris; E78.5 Hyperlipidemia, unspecified; K21.9 Gastro-esophageal reflux disease without esophagitis; F41.9 Anxiety disorder, unspecified; F03.90 Unspecified dementia, unspecified severity, without behavioral disturbance, psychotic disturbance, mood disturbance, and anxiety; M19.90 Unspecified osteoarthritis, unspecified site; K29.70 Gastritis, unspecified, without bleeding; D64.9 Anemia, unspecified; K27.9 Peptic ulcer, site unspecified, unspecified as acute or chronic, without hemorrhage or perforation; M81.0 Age-related osteoporosis without current pathological fracture; Z83.3 Family history of diabetes mellitus; Z82.49 Family history of ischemic heart disease and other diseases of the circulatory system
CPT/HCPCS: 36415-UA; 71045-TC; 80053-TC; 80061-TC; 80320-TC; 80329-TC; 83036-90; 84443-TC; 84484-TC; 85025-TC; 86592-TC; 93005; 94640; 94760; J1200; J1630; J2060; Z7610

== ENCOUNTER 2018-05-17 20:05 | Inpatient (IN) | payer BC, MEDICARE ==
--- NOTE | 2018-05-17 20:35 | ED Physician Chart ---
ED Chief Complaint/HPI - Patient Information Date Seen:: 05/17/18 Time Seen:: 20:30 Chief Complaint:: agitation History of Present Illness:: 82 yr old female with hx afib gerd depression psych disorder here for agitation yelling and screaming Allergies:: Allergies Allergy/AdvReac Type Severity Reaction Status Date / Time No Known Allergies Allergy Verified 05/17/18 20:18 Vitals:: Vital Signs - 8 hr 05/17/18 20:18 Temp 98.1 F HR 80 RR 18 BP 134/90 O2 Sat % 97 ED Review of Systems - Review of Systems General/Constitutional: No fever Head: No headache Eyes: No loss of vision ENT: No earache Neck: No neck pain Cardio Vascular: No chest pain Pulmonary: No SOB GI: No vomiting, No diarrhea G/U: No dysuria Musculoskeletal: No bone or joint pain Endocrine: No polyuria Psychiatric: No depression Hematopoietic: No bruising Neurological: No syncope ED Past Medical History - Past Medical History Past Medical History: PUD/GERD (afib weakness depression psych), Other (afib) Family Medical History - Family Member not known History Unknown: Yes ED Physical Exam - Physical Examination General/Constitutional: Well-developed, well-nourished Head: Atraumatic Eyes: Lids, conjuctiva normal Skin: No rash Neck: Full ROM w/o pain Respiratory: Nl effort/Exclusion Cardio Vascular: No murmur, gallop, rubs GI: No organomegaly (ctxs ar rt knee and TKR AND BILATERAL TOE CONTRACTURES) Extremities: No tenderness or effusion ED Assessment - Assessment General Assessment: AGITATION PSYCHOSIS ED Septic Shock - . Is Septic Shock (SBP<90, OR Lactate>4 mmol\L) present?: No - <6hrs of presentation: Vital Signs: Vital Signs - 8 hr 05/17/18 20:18 Temp 98.1 F HR 80 RR 18 BP 134/90 O2 Sat % 97 ED Reassessment (Disposition) - Reassessment Reassessment Condition:: Unchanged - Diagnosis Diagnosis:: PSYCHOSIS AGITATION - Patient Disposition Discharge/Transfer:: Acute Care w/in this hosp Condition at Disposition:: Stable
[2018-05-17] MEDS ORDERED: Haloperidol Lactate 5 mg/mL 1mL Vial IM STA (20:38)
[2018-05-17] MEDS ORDERED: Haloperidol Lactate 5 mg/mL 1mL Vial ONE (20:41)
[2018-05-17 20:49] LABS: % BASOPHILS 0.5 % (0.0-2.0); % EOSINOPHILS 3.1 % (0.0-5.0); % LYMPHOCYTES 25.1 % (20.0-50.0); % MONOCYTES 8.8 % (2.0-10.0); % NEUTROPHILS 62.5 % (40.0-80.0); BASOPHILE ABSOLUTE 0.1 Th/cumm (0-0.2); EOSINOPHILE ABSOLUTE 0.4 Th/cmm (0.1-0.4); HEMATOCRIT 46.4 % (41.0-60); HEMOGLOBIN 15.1 gm/dL (12-16); LYMPHOCYTE ABSOLUTE 2.8 Th/cmm (1.5-3.0); MEAN CORPUSCULAR HEMOGLOBIN 27.6 pg (27.0-31.0); MEAN CORPUSCULAR HGB CONC 32.5 pg (28.0-36.0); MEAN PLATELET VOLUME 8.5 fl; PLATELET COUNT 243 Th/cmm (150-400); RED BLOOD COUNT 5.47 Mil/cmm (3.80-5.20); RED CELL DISTRIBUTION WIDTH 15.9 % (11.5-20.0); WHITE BLOOD COUNT 11.3 Th/cmm (4.8-10.8)
[2018-05-17 21:06] LABS: ALB/GLOB RATIO 1.1 (1.0-1.8); ALBUMIN 3.9 gm/dL (3.7-5.3); ALKALINE PHOSPHATASE 114 U/L (34-104); BILIRUBIN,TOTAL 0.3 mg/dL (0.3-1.0); BUN - UREA NITROGEN 25 mg/dL (7-25); CALCIUM SERUM 9.7 mg/dL (8.6-10.3); CARBON DIOXIDE 22.5 mEq/L (21.0-31.0); CREATININE - SERUM 0.8 mg/dL (0.6-1.2); GLUCOSE 179 mg/dL (70-105); SGOT 16 U/L (13-39); SGPT/ALT 6 U/L (7-52); TOTAL PROTEIN,SERUM 7.4 gm/dL (6.0-8.3)
[2018-05-17 21:13] LABS: ANION GAP 20.1 (7.0-16.0); CHLORIDE 107 mEq/L (98-107); POTASSIUM SERUM 4.6 mEq/L (3.5-5.1); SODIUM SERUM 145 mEq/L (136-145)
[2018-05-17 22:54] VITALS: BP 97/57
[2018-05-17] MEDS ORDERED: Magnesium Hydroxide (MOM) 30 mL UDC PO PRN (22:56)
[2018-05-17] MEDS ORDERED: Hydrocodone/APAP 5mg/325mg Tab PO PRN (22:58)
[2018-05-17 23:49] LABS: CHOLESTEROL 220 mg/dL (<200); HDL -HIGH DENSITY LIPOPROTEIN 58 mg/dL (23-92); TRIGLYCERIDES 132 mg/dL (<150)
[2018-05-18] MEDS: Pantoprazole 40 mg EC Tab PO SCH (07:02)
[2018-05-18] MEDS: Ferrous Sulfate 325 MG TAB PO SCH (10:33)
[2018-05-18] MEDS: POLYETHYLENE GLYCOL 3350 17 GM PACK PO SCH (10:33)
--- NOTE | 2018-05-18 12:25 | History and Physical ---
History of Present Illness - HPI Chief Complaint: agitation HPI: This is a 82-year old female sent from [facility] due to agitation. Vital Signs: Last Vital Signs Temp 97.8 F 05/17/18 22:16 Pulse 80 05/17/18 22:16 Resp 20 05/17/18 22:16 BP 97/57 05/17/18 22:54 Pulse Ox 96 05/17/18 22:16 Past Medical History Other History: PUD/GERD, afib weakness depression Family Medical History - Family Member not known History Unknown: Yes Social History Smoke: No Alcohol: None Drugs: None Lives: Longterm - Medications Home Medications: Home Medication Medication Instructions Recorded Type Ferrous Sulfate [Iron] 1 tab PO DAILY 12/15/17 History Hydrocodone/Acetaminophen [Luther 1 tab PO Q4H PRN 12/15/17 History 325 mg-5 mg*] Lorazepam [Ativan] 1 tab PO BID 12/15/17 History Omeprazole 1 tab PO 0630 12/15/17 History Polyethylene Glycol 3350 1 packet PO DAILY 12/15/17 History QUEtiapine Fumarate [SEROquel] 1 tab PO DAILY 12/15/17 History Acetaminophen [Tylenol] 650 mg PO Q4HR PRN tab 12/31/17 Rx Zolpidem Tartrate [Ambien] 5 mg PO HS PRN tab 12/31/17 Rx - Allergies Allergies/Adverse Reactions: Allergies Allergy/AdvReac Type Severity Reaction Status Date / Time No Known Allergies Allergy Verified 05/17/18 20:18 Review of Systems - Review of Systems Constitutional: Report: No Significant Eyes: Report: No Significant Respiratory: Report: No Significant Cardiovascular: Report: No Significant Neurological: Report: Weakness Physical Exam - Physical Exam HEENT: Report: Ears Nose Throat within normal limits Neck: Report: Within normal limits Cardiovascular Systems: Report: Regular, Rate and Rhythm Respiratory: Report: Breath Sounds are within normal limits Abdomen: Report: Non-tender to palpation Extremities: Report: Non-tender to palpation. Skin: Report: Color of skin is within normal limits, Warm, Dry Neuro/Psych: Report: Mood affect is within normal limits - Lab Results All Lab Results last 24 hours: Laboratory Results - last 24 hr 05/17/18 05/17/18 05/17/18 20:40 20:40 20:40 WBC 11.3 H RBC 5.47 H Hgb 15.1 Hct 46.4 MCV 85.0 MCH 27.6 MCHC Differential 32.5 RDW 15.9 Plt Count 243 MPV 8.5 Neutrophils % 62.5 Lymphocytes % 25.1 Monocytes % 8.8 Eosinophils % 3.1 Basophils % 0.5 Sodium 145 Potassium 4.6 Chloride 107 Carbon Dioxide 22.5 Anion Gap 20.1 H BUN 25 Creatinine 0.8 Est GFR ( Amer) TNP Est GFR (Non-Af Amer) TNP BUN/Creatinine Ratio 31.3 Glucose 179 H Calcium 9.7 Total Bilirubin 0.3 AST 16 ALT 6 L Alkaline Phosphatase 114 H Total Protein 7.4 Albumin 3.9 Globulin 3.5 Albumin/Globulin Ratio 1.1 Triglycerides 132 Cholesterol 220 H LDL Cholesterol Direct 139 HDL Cholesterol 58 - Assessment Assessment: GERD hx afib weakness depression - Plan Plan: continue snf meds continue current tx
[2018-05-19] MEDS: Pantoprazole 40 mg EC Tab PO SCH (06:15)
[2018-05-19] MEDS: Ferrous Sulfate 325 MG TAB PO SCH (08:42)
[2018-05-19] MEDS: POLYETHYLENE GLYCOL 3350 17 GM PACK PO SCH (08:42)
--- NOTE | 2018-05-19 11:39 | Internal Medicine Prog Note ---
Internal Medicine Subjective - Subjective Patient seen and examined:: chart reviewed Patient is:: awake, confused (easily irritable ), other (depressed , withdrawn ) Per staff patient has:: no adverse event Internal Medicine Objective - Results Result Diagrams: 05/17/18 20:40 05/17/18 20:40 Recent Labs: Laboratory Last Values WBC 11.3 Th/cmm (4.8-10.8) H 05/17/18 20:40 RBC 5.47 Mil/cmm (3.80-5.20) H 05/17/18 20:40 Hgb 15.1 gm/dL (12-16) 05/17/18 20:40 Hct 46.4 % (41.0-60) 05/17/18 20:40 MCV 85.0 fl (81-100) 05/17/18 20:40 MCH 27.6 pg (27.0-31.0) 05/17/18 20:40 MCHC Differential 32.5 pg (28.0-36.0) 05/17/18 20:40 RDW 15.9 % (11.5-20.0) 05/17/18 20:40 Plt Count 243 Th/cmm (150-400) 05/17/18 20:40 MPV 8.5 fl 05/17/18 20:40 Neutrophils % 62.5 % (40.0-80.0) 05/17/18 20:40 Lymphocytes % 25.1 % (20.0-50.0) 05/17/18 20:40 Monocytes % 8.8 % (2.0-10.0) 05/17/18 20:40 Eosinophils % 3.1 % (0.0-5.0) 05/17/18 20:40 Basophils % 0.5 % (0.0-2.0) 05/17/18 20:40 Sodium 145 mEq/L (136-145) 05/17/18 20:40 Potassium 4.6 mEq/L (3.5-5.1) 05/17/18 20:40 Chloride 107 mEq/L (98-107) 05/17/18 20:40 Carbon Dioxide 22.5 mEq/L (21.0-31.0) 05/17/18 20:40 Anion Gap 20.1 (7.0-16.0) H 05/17/18 20:40 BUN 25 mg/dL (7-25) 05/17/18 20:40 Creatinine 0.8 mg/dL (0.6-1.2) 05/17/18 20:40 Est GFR ( Amer) TNP 05/17/18 20:40 Est GFR (Non-Af Amer) TNP 05/17/18 20:40 BUN/Creatinine Ratio 31.3 05/17/18 20:40 Glucose 179 mg/dL (70-105) H 05/17/18 20:40 Calcium 9.7 mg/dL (8.6-10.3) 05/17/18 20:40 Total Bilirubin 0.3 mg/dL (0.3-1.0) 05/17/18 20:40 AST 16 U/L (13-39) 05/17/18 20:40 ALT 6 U/L (7-52) L 05/17/18 20:40 Alkaline Phosphatase 114 U/L (34-104) H 05/17/18 20:40 Total Protein 7.4 gm/dL (6.0-8.3) 05/17/18 20:40 Albumin 3.9 gm/dL (3.7-5.3) 05/17/18 20:40 Globulin 3.5 gm/dL 05/17/18 20:40 Albumin/Globulin Ratio 1.1 (1.0-1.8) 05/17/18 20:40 Triglycerides 132 mg/dL (<150) 05/17/18 20:40 Cholesterol 220 mg/dL (<200) H 05/17/18 20:40 LDL Cholesterol Direct 139 mg/dL (75-193) 05/17/18 20:40 HDL Cholesterol 58 mg/dL (23-92) 05/17/18 20:40 - Physical Exam Vitals and I&O: Vital Signs Temp 97.4 F 05/19/18 06:18 Pulse 72 05/19/18 06:18 Resp 18 05/19/18 06:18 BP 127/77 05/19/18 06:18 Pulse Ox 92 05/19/18 06:18 Intake & Output 05/18/18 05/19/18 05/19/18 18:59 06:59 18:59 Intake Total 300 Balance 300 Intake: Oral 300 Other: # Voids 2 # Bowel Movements 0 Active Medications: Current Medications Acetaminophen (Tylenol) 650 mg PO Q4HR PRN PRN Reason: Mild Pain / Temp above 100 Stop: 07/16/18 22:57 Acetaminophen/Hydrocodone Bitart (Staley 5mg/325mg) 1 tab PO Q4H PRN PRN Reason: Pain (Moderate) Stop: 07/16/18 22:57 Ferrous Sulfate (Iron) 325 mg PO DAILY [facility] Stop: 07/17/18 08:59 Last Admin: 05/19/18 08:42 Dose: 325 mg Lorazepam (Ativan) 1 mg PO BID [facility]; Protocol Stop: 07/17/18 08:59 Last Admin: 05/19/18 08:42 Dose: 1 mg Lorazepam (Ativan) 0.5 mg PO Q4HR PRN; Protocol PRN Reason: Anxiety Stop: 06/16/18 23:00 Magnesium Hydroxide (Milk Of Magnesia) 30 ml PO HS PRN PRN Reason: Constipation Pantoprazole Sodium (Protonix) 40 mg PO 0630 [facility] Stop: 07/17/18 06:29 Last Admin: 05/19/18 06:15 Dose: Not Given Polyethylene Glycol (Miralax) 17 gm PO DAILY [facility] Stop: 07/17/18 08:59 Last Admin: 05/19/18 08:42 Dose: Not Given Quetiapine Fumarate (Seroquel) 25 mg PO BID [facility]; Protocol Stop: 07/18/18 08:59 Last Admin: 05/19/18 08:42 Dose: 25 mg Zolpidem Tartrate (Ambien) 5 mg PO HS PRN PRN Reason: Insomnia Stop: 07/16/18 22:57 General: alert, disheveled HEENT: NC/AT Neck: Supple Lungs: CTAB Cardiovascular: RRR, Normal S2 Extremities: clear Internal Medicine Assmt/Plan - Assessment Assessment: GERD H/O A FIB WEKANESS DEPRESSION - Plan Plan: as per psych will monitor
--- NOTE | 2018-05-20 00:12 | Psychiatric Evaluation ---
DATE OF SERVICE: PSYCHIATRIC INITIAL EVALUATION AND MENTAL STATUS EXAM PATIENT'S AGE: 82-year-old. SEX: Female. PHYSICIAN: Dr. Hicks. CHIEF COMPLAINT: Severe agitation, yelling and screaming. HISTORY OF PRESENT ILLNESS: The patient is an 82-year-old female who was transferred from [facility] because of increased agitation with excessive yelling and screaming and increased behavioral problems. The patient also was not able to follow any of staff directions. The patient also has been aggressive and angry. PAST PSYCHIATRIC HISTORY: The patient has history of dementia. PAST MEDICAL HISTORY: The patient has history of AFib and gastroesophageal reflux disease. SOCIAL HISTORY: The patient lives in [facility]. No known alcohol or drug use. ALLERGIES: No known allergies. MENTAL STATUS EXAMINATION: The patient appears slightly older than her stated age. Anxious. Irritable mood. Yelling and screaming. Difficulty following directions. Thought processes are disorganized. The patient did not answer questions regarding hallucinations or delusions, but actively responding to stimuli. The patient did not answer questions regarding suicide or homicide. The patient is alert, but disoriented to time, place, person and situation. Impaired immediate and recent memory. Intact remote memory. Poor insight and poor judgment. ASSESSMENT: PRIMARY DIAGNOSIS: Unspecified psychosis. SECONDARY DIAGNOSIS: Dementia, moderate to severe, with psychosis and behavioral modifications. MEDICAL DIAGNOSES: Atrial fib. Gastroesophageal reflux disease. TREATMENT PLAN: We will monitor the patient's behavior and condition closely. We will monitor psychotropic medications. ESTIMATED LENGTH OF STAY: 5-7 days. THE PATIENT'S STRENGTHS AND WEAKNESSES: The patient's strength is not clear at this time. Weaknesses are poor impulse control and her psychosis and dementia and inability to follow directions. AFTER DISCHARGE PLAN: The patient will return to [facility] with plans for outpatient treatment and followup. CRITERIA FOR DISCHARGE: The patient will not be psychotic and will stabilize psychotropic medications and will have better impulse control. [facility]# [id number]
[2018-05-20] MEDS: Pantoprazole 40 mg EC Tab PO SCH (06:14)
[2018-05-20] MEDS: Ferrous Sulfate 325 MG TAB PO SCH (09:11)
[2018-05-20] MEDS: POLYETHYLENE GLYCOL 3350 17 GM PACK PO SCH (09:12)
--- NOTE | 2018-05-20 13:40 | Internal Medicine Prog Note ---
Internal Medicine Subjective - Subjective Service Date: 05/20/18 Patient is:: awake, confused (easily irritable ), other (depressed , withdrawn ) Per staff patient has:: no adverse event Internal Medicine Objective - Results Result Diagrams: 05/17/18 20:40 05/17/18 20:40 Recent Labs: Laboratory Last Values WBC 11.3 Th/cmm (4.8-10.8) H 05/17/18 20:40 RBC 5.47 Mil/cmm (3.80-5.20) H 05/17/18 20:40 Hgb 15.1 gm/dL (12-16) 05/17/18 20:40 Hct 46.4 % (41.0-60) 05/17/18 20:40 MCV 85.0 fl (81-100) 05/17/18 20:40 MCH 27.6 pg (27.0-31.0) 05/17/18 20:40 MCHC Differential 32.5 pg (28.0-36.0) 05/17/18 20:40 RDW 15.9 % (11.5-20.0) 05/17/18 20:40 Plt Count 243 Th/cmm (150-400) 05/17/18 20:40 MPV 8.5 fl 05/17/18 20:40 Neutrophils % 62.5 % (40.0-80.0) 05/17/18 20:40 Lymphocytes % 25.1 % (20.0-50.0) 05/17/18 20:40 Monocytes % 8.8 % (2.0-10.0) 05/17/18 20:40 Eosinophils % 3.1 % (0.0-5.0) 05/17/18 20:40 Basophils % 0.5 % (0.0-2.0) 05/17/18 20:40 Sodium 145 mEq/L (136-145) 05/17/18 20:40 Potassium 4.6 mEq/L (3.5-5.1) 05/17/18 20:40 Chloride 107 mEq/L (98-107) 05/17/18 20:40 Carbon Dioxide 22.5 mEq/L (21.0-31.0) 05/17/18 20:40 Anion Gap 20.1 (7.0-16.0) H 05/17/18 20:40 BUN 25 mg/dL (7-25) 05/17/18 20:40 Creatinine 0.8 mg/dL (0.6-1.2) 05/17/18 20:40 Est GFR ( Amer) TNP 05/17/18 20:40 Est GFR (Non-Af Amer) TNP 05/17/18 20:40 BUN/Creatinine Ratio 31.3 05/17/18 20:40 Glucose 179 mg/dL (70-105) H 05/17/18 20:40 Calcium 9.7 mg/dL (8.6-10.3) 05/17/18 20:40 Total Bilirubin 0.3 mg/dL (0.3-1.0) 05/17/18 20:40 AST 16 U/L (13-39) 05/17/18 20:40 ALT 6 U/L (7-52) L 05/17/18 20:40 Alkaline Phosphatase 114 U/L (34-104) H 05/17/18 20:40 Total Protein 7.4 gm/dL (6.0-8.3) 05/17/18 20:40 Albumin 3.9 gm/dL (3.7-5.3) 05/17/18 20:40 Globulin 3.5 gm/dL 05/17/18 20:40 Albumin/Globulin Ratio 1.1 (1.0-1.8) 05/17/18 20:40 Triglycerides 132 mg/dL (<150) 05/17/18 20:40 Cholesterol 220 mg/dL (<200) H 05/17/18 20:40 LDL Cholesterol Direct 139 mg/dL (75-193) 05/17/18 20:40 HDL Cholesterol 58 mg/dL (23-92) 05/17/18 20:40 - Physical Exam Vitals and I&O: Vital Signs Temp 98.1 F 05/20/18 06:26 Pulse 79 05/20/18 06:26 Resp 18 05/20/18 06:26 BP 129/74 05/20/18 06:26 Pulse Ox 97 05/20/18 06:26 Intake & Output 05/19/18 05/20/18 05/20/18 18:59 06:59 18:59 Intake Total 1200 120 Balance 1200 120 Intake: Oral 1200 120 Other: # Voids 3 # Bowel Movements 1 1 Active Medications: Current Medications Acetaminophen (Tylenol) 650 mg PO Q4HR PRN PRN Reason: Mild Pain / Temp above 100 Stop: 07/16/18 22:57 Acetaminophen/Hydrocodone Bitart ([place] 5mg/325mg) 1 tab PO Q4H PRN PRN Reason: Pain (Moderate) Stop: 07/16/18 22:57 Ferrous Sulfate (Iron) 325 mg PO DAILY [facility] Stop: 07/17/18 08:59 Last Admin: 05/20/18 09:11 Dose: 325 mg Lorazepam (Ativan) 1 mg PO BID [facility]; Protocol Stop: 07/17/18 08:59 Last Admin: 05/20/18 09:11 Dose: 1 mg Lorazepam (Ativan) 0.5 mg PO Q4HR PRN; Protocol PRN Reason: Anxiety Stop: 06/16/18 23:00 Magnesium Hydroxide (Milk Of Magnesia) 30 ml PO HS PRN PRN Reason: Constipation Mupirocin (Bactroban Oint) 1 appl NS BID [facility] Stop: 05/24/18 17:01 Last Admin: 05/20/18 09:11 Dose: 1 appl Pantoprazole Sodium (Protonix) 40 mg PO 0630 [facility] Stop: 07/17/18 06:29 Last Admin: 05/20/18 06:14 Dose: 40 mg Polyethylene Glycol (Miralax) 17 gm PO DAILY [facility] Stop: 07/17/18 08:59 Last Admin: 05/20/18 09:12 Dose: 17 gm Quetiapine Fumarate (Seroquel) 25 mg PO BID [facility]; Protocol Stop: 07/18/18 08:59 Last Admin: 05/20/18 09:11 Dose: 25 mg Zolpidem Tartrate (Ambien) 5 mg PO HS PRN PRN Reason: Insomnia Stop: 07/16/18 22:57 General: alert, disheveled HEENT: NC/AT Neck: Supple Lungs: CTAB Cardiovascular: RRR, Normal S2 Extremities: clear Internal Medicine Assmt/Plan - Assessment Assessment: GERD hx afib weakness depression - Plan Plan: continue snf meds continue current tx
--- NOTE | 2018-05-21 05:30 | Progress Notes ---
DATE: 05/20/2018 PSYCHIATRIC PROGRESS NOTE SUBJECTIVE: Chart reviewed and the patient interviewed. Also discussed the patient's condition with the staff and reviewed records and labs. The patient continued to be confused and is still guarded and withdrawn. The patient also is still paranoid. The patient also is still easily agitated and easily irritable at times. Otherwise, the patient is compliant with taking medications with no side effects. ASSESSMENT: The patient is still confused and is still angry. TREATMENT PLAN: Continue monitoring behavior and condition closely and continue to follow up and also continue adjusting psychotropic medications. JOB# [id number]
[2018-05-21] MEDS: Pantoprazole 40 mg EC Tab PO SCH (06:56)
--- NOTE | 2018-05-21 08:26 | Progress Notes ---
DATE: 05/19/2018 SUBJECTIVE: Chart reviewed and the patient interviewed. Also discussed the patient's condition with the staff and reviewed records and labs. The patient is still agitated and she is still combative. The patient also is still screaming and yelling and is having unpredictable behavior. She also is still resisting care. The patient also is still suspicious and paranoid. Otherwise, the patient is compliant with taking her medications with no side effects of medications. ASSESSMENT: The patient is still psychotic and is still depressed. TREATMENT PLAN: Continue to monitor behavior and condition closely. Also, we will increase Seroquel to 25 mg twice a day and continue to follow up closely. JOB# [id number]
[2018-05-21] MEDS: Ferrous Sulfate 325 MG TAB PO SCH (08:47)
[2018-05-21] MEDS: POLYETHYLENE GLYCOL 3350 17 GM PACK PO SCH (08:48)
--- NOTE | 2018-05-21 13:56 | Internal Medicine Prog Note ---
Internal Medicine Subjective - Subjective Patient seen and examined:: chart reviewed Patient is:: awake, confused (easily irritable ), other (angry ) Per staff patient has:: no adverse event Internal Medicine Objective - Results Result Diagrams: 05/17/18 20:40 05/17/18 20:40 Recent Labs: Laboratory Last Values WBC 11.3 Th/cmm (4.8-10.8) H 05/17/18 20:40 RBC 5.47 Mil/cmm (3.80-5.20) H 05/17/18 20:40 Hgb 15.1 gm/dL (12-16) 05/17/18 20:40 Hct 46.4 % (41.0-60) 05/17/18 20:40 MCV 85.0 fl (81-100) 05/17/18 20:40 MCH 27.6 pg (27.0-31.0) 05/17/18 20:40 MCHC Differential 32.5 pg (28.0-36.0) 05/17/18 20:40 RDW 15.9 % (11.5-20.0) 05/17/18 20:40 Plt Count 243 Th/cmm (150-400) 05/17/18 20:40 MPV 8.5 fl 05/17/18 20:40 Neutrophils % 62.5 % (40.0-80.0) 05/17/18 20:40 Lymphocytes % 25.1 % (20.0-50.0) 05/17/18 20:40 Monocytes % 8.8 % (2.0-10.0) 05/17/18 20:40 Eosinophils % 3.1 % (0.0-5.0) 05/17/18 20:40 Basophils % 0.5 % (0.0-2.0) 05/17/18 20:40 Sodium 145 mEq/L (136-145) 05/17/18 20:40 Potassium 4.6 mEq/L (3.5-5.1) 05/17/18 20:40 Chloride 107 mEq/L (98-107) 05/17/18 20:40 Carbon Dioxide 22.5 mEq/L (21.0-31.0) 05/17/18 20:40 Anion Gap 20.1 (7.0-16.0) H 05/17/18 20:40 BUN 25 mg/dL (7-25) 05/17/18 20:40 Creatinine 0.8 mg/dL (0.6-1.2) 05/17/18 20:40 Est GFR ( Amer) TNP 05/17/18 20:40 Est GFR (Non-Af Amer) TNP 05/17/18 20:40 BUN/Creatinine Ratio 31.3 05/17/18 20:40 Glucose 179 mg/dL (70-105) H 05/17/18 20:40 Calcium 9.7 mg/dL (8.6-10.3) 05/17/18 20:40 Total Bilirubin 0.3 mg/dL (0.3-1.0) 05/17/18 20:40 AST 16 U/L (13-39) 05/17/18 20:40 ALT 6 U/L (7-52) L 05/17/18 20:40 Alkaline Phosphatase 114 U/L (34-104) H 05/17/18 20:40 Total Protein 7.4 gm/dL (6.0-8.3) 05/17/18 20:40 Albumin 3.9 gm/dL (3.7-5.3) 05/17/18 20:40 Globulin 3.5 gm/dL 05/17/18 20:40 Albumin/Globulin Ratio 1.1 (1.0-1.8) 05/17/18 20:40 Triglycerides 132 mg/dL (<150) 05/17/18 20:40 Cholesterol 220 mg/dL (<200) H 05/17/18 20:40 LDL Cholesterol Direct 139 mg/dL (75-193) 05/17/18 20:40 HDL Cholesterol 58 mg/dL (23-92) 05/17/18 20:40 - Physical Exam Vitals and I&O: Vital Signs Temp 97 F 05/21/18 06:46 Pulse 69 05/21/18 06:46 Resp 18 05/21/18 06:46 BP 123/76 05/21/18 06:46 Pulse Ox 99 05/21/18 06:46 Intake & Output 05/20/18 05/21/18 05/21/18 18:59 06:59 18:59 Intake Total 920 120 Balance 920 120 Intake: Oral 920 120 Other: # Voids 3 3 # Bowel Movements 2 1 Active Medications: Current Medications Acetaminophen (Tylenol) 650 mg PO Q4HR PRN PRN Reason: Mild Pain / Temp above 100 Stop: 07/16/18 22:57 Acetaminophen/Hydrocodone Bitart ([place] 5mg/325mg) 1 tab PO Q4H PRN PRN Reason: Pain (Moderate) Stop: 07/16/18 22:57 Ferrous Sulfate (Iron) 325 mg PO DAILY [facility] Stop: 07/17/18 08:59 Last Admin: 05/21/18 08:47 Dose: 325 mg Lorazepam (Ativan) 1 mg PO BID [facility]; Protocol Stop: 07/17/18 08:59 Last Admin: 05/21/18 08:47 Dose: 1 mg Lorazepam (Ativan) 0.5 mg PO Q4HR PRN; Protocol PRN Reason: Anxiety Stop: 06/16/18 23:00 Magnesium Hydroxide (Milk Of Magnesia) 30 ml PO HS PRN PRN Reason: Constipation Mupirocin (Bactroban Oint) 1 appl NS BID [facility] Stop: 05/24/18 17:01 Last Admin: 05/21/18 08:48 Dose: 1 appl Pantoprazole Sodium (Protonix) 40 mg PO 0630 [facility] Stop: 07/17/18 06:29 Last Admin: 05/21/18 06:56 Dose: Not Given Polyethylene Glycol (Miralax) 17 gm PO DAILY [facility] Stop: 07/17/18 08:59 Last Admin: 05/21/18 08:48 Dose: 17 gm Quetiapine Fumarate (Seroquel) 25 mg PO BID [facility]; Protocol Stop: 07/18/18 08:59 Last Admin: 05/21/18 08:47 Dose: 25 mg Zolpidem Tartrate (Ambien) 5 mg PO HS PRN PRN Reason: Insomnia Stop: 07/16/18 22:57 General: alert, disheveled HEENT: NC/AT Neck: Supple Lungs: CTAB Cardiovascular: RRR, Normal S2 Extremities: clear Internal Medicine Assmt/Plan - Assessment Assessment: GERD H/O A FIB WEKANESS DEPRESSION - Plan Plan: as per psych will monitor as problems arise Nutritional Asmnt/Malnutr-PDOC - Dietary Evaluation Malnutrition Findings (Please click <Entered> for more info): Nutritional Asmnt/Malnutrition Start: 11/08/18 15: 34 Text: Status: Complete Freq: Protocol: Document 05/20/18 15:40 RUPINDER (Rec: 05/20/18 15:52 RUPINDER [email or web address]) Nutritional Asmnt/Malnutrition Patient General Information Nutritional Screening Moderate Risk Diagnosis psychosis Pertinent Medical Hx/Surgical Hx PUD/GERD, AFIB, weakness, depression Subjective Information Pt eating lunch and appeared to have finished 100% at time of visit. Pt states she dislikes the zucchini and quinoa served, but likes rice. Pt appears to have missing teeth, but PO intake 100% yesterday as well. Current Diet Order/ Nutrition Support mec soft chopped, SAMAN Pertinent Medications iron, MOM, protonix, miralax, seroquel Pertinent Labs 05/17: glucose 179, cholesterol 220 Nutritional Hx/Data Height 1.63 m Height (Calculated Centimeters) 162.6 Current Weight (lbs) 68.039 kg Weight (Calculated Kilograms) 68.0 Weight (Calculated Grams) 63840.9 [place] Body Weight 120 lb Body Mass Index (BMI) 25.7 Weight Status Overweight GI Symptoms GI Symptoms None Last BM 05/20 Difficult in: None Food Allergies No Skin Integrity/Comment: intact, caridad 16 Current %PO Good (75-100%) Estimated Nutritional Goals BEE in Kcals: Using Current wt Calories/Kcals/Kg 23-27 Kcals Calculated 2782-3330 Protein: Using Current wt Protein g/k.0 Protein Calculated 68 g Fluid: ml 5512-5372 (1 ml/kcal) Nutritional Problem No current Nutrition Prob Problem no nutrition dx at this time Malnutrition Alert Is there a minimum of two criteria No selected? Query Text:Check all the applicable criteria. A minimum of two criteria are recommended for diagnosis of either severe or non-severe malnutrition. Malnutrition Related to Morbid Obesity Malnutrition related to morbid obesity No Intervention/Recommendation Comments [facility]. [facility] SAMAN diet as ordered 2. Consider starting CCHO diet if blood glucose continue above normal limits 3. Monitor PO intake, wt, labs and skin integrity 4. F/U as moderate risk in 3-5 days, 05/23-05/25 Expected Outcomes/Goals Expected Outcomes/Goals 1. PO intake to continue meeting at least 75% of all meals 2. Wt stability, skin to remain intact, and nutrition related labs to approach normal limits Reviewed by Mora Gonsales RD
[2018-05-22] MEDS: Pantoprazole 40 mg EC Tab PO SCH (06:22)
[2018-05-22] MEDS: Ferrous Sulfate 325 MG TAB PO SCH (08:56)
[2018-05-22] MEDS: POLYETHYLENE GLYCOL 3350 17 GM PACK PO SCH (08:57)
--- NOTE | 2018-05-22 16:27 | Progress Notes ---
DATE: 05/22/2018 SUBJECTIVE: The patient was seen in her room. The patient is asleep, but arousable. The patient appears to be confused, irritated, and guarded. Otherwise, the patient is in no acute distress. OBJECTIVE: VITAL SIGNS: Temperature 97.4, heart rate 72, blood pressure 134/74, respirations of 18, and 97% on room air. HEENT: Head is atraumatic and normocephalic. Eyes: Bilateral conjunctivae are clear. Bilateral pupils are equally round and reactive. NECK: Supple. No JVD. CARDIOVASCULAR: S1 and S2, without murmur. PULMONARY: Clear to auscultation. GASTROINTESTINAL: Soft and nontender without guarding. Positive bowel sounds. MUSCULOSKELETAL: No clubbing. No cyanosis noted. ASSESSMENT: 1. Psychosis. 2. Dementia. 3. Gastroesophageal reflux disease. 4. Iron deficiency anemia. 5. Osteoarthritis. PLAN: We will keep the patient inpatient to Psychiatric unit and we will follow up with the psychiatrist to monitor the patient's condition and behavior. Treatment plans were discussed with the patient's nurse. Treatment plans were discussed with Dr. Llamas. JOB# [id number]
[2018-05-23] MEDS: Pantoprazole 40 mg EC Tab PO SCH (06:15)
--- NOTE | 2018-05-23 07:26 | Progress Notes ---
DATE: 05/21/2018 SUBJECTIVE: Chart reviewed and the patient interviewed. Also discussed the patient's condition with the staff and reviewed records and labs. The patient is still confused. The patient also is still depressed and withdrawn. She also is suspicious and paranoid. The patient also is agitated and she still needs close monitoring. The patient also still has mood swings. Otherwise, the patient is compliant with taking her medications and no side effects of Seroquel and the patient continued to take Seroquel 25 mg twice a day with no side effects. ASSESSMENT: The patient is still agitated and is still psychotic. TREATMENT PLAN: Continue monitoring behavior and condition closely. Also, continue working on discharge plans and adjusting psychotropic medications. [facility]# [id number]
[2018-05-23] MEDS: Ferrous Sulfate 325 MG TAB PO SCH (08:30)
[2018-05-23] MEDS: POLYETHYLENE GLYCOL 3350 17 GM PACK PO SCH (08:31)
--- NOTE | 2018-05-23 09:00 | Progress Notes ---
DATE: 05/22/[address] Hicks. SUBJECTIVE: The patient was seen and evaluated. IDENTIFIYING DATA: The patient ____ nursing staff and primary psychiatrist's note, the patient continues to be agitated and combative. Today on sonu-fs-diag evaluation, the patient reports that ____. MENTAL STATUS EXAMINATION: Psychotic, disorganized. ASSESSMENT AND PLAN: The patient with ongoing psychotic symptoms. We will continue with the recent increase of Seroquel. She has been able to tolerate without complication. Talked to the patient about ongoing symptoms. JOB# [id number]
--- NOTE | 2018-05-23 11:21 | Internal Medicine Prog Note ---
Internal Medicine Subjective - Subjective Patient seen and examined:: chart reviewed Patient is:: awake, confused (easily irritable ), other (agitated at times ) Per staff patient has:: no adverse event Internal Medicine Objective - Results Result Diagrams: 05/17/18 20:40 05/17/18 20:40 Recent Labs: Laboratory Last Values WBC 11.3 Th/cmm (4.8-10.8) H 05/17/18 20:40 RBC 5.47 Mil/cmm (3.80-5.20) H 05/17/18 20:40 Hgb 15.1 gm/dL (12-16) 05/17/18 20:40 Hct 46.4 % (41.0-60) 05/17/18 20:40 MCV 85.0 fl (81-100) 05/17/18 20:40 MCH 27.6 pg (27.0-31.0) 05/17/18 20:40 MCHC Differential 32.5 pg (28.0-36.0) 05/17/18 20:40 RDW 15.9 % (11.5-20.0) 05/17/18 20:40 Plt Count 243 Th/cmm (150-400) 05/17/18 20:40 MPV 8.5 fl 05/17/18 20:40 Neutrophils % 62.5 % (40.0-80.0) 05/17/18 20:40 Lymphocytes % 25.1 % (20.0-50.0) 05/17/18 20:40 Monocytes % 8.8 % (2.0-10.0) 05/17/18 20:40 Eosinophils % 3.1 % (0.0-5.0) 05/17/18 20:40 Basophils % 0.5 % (0.0-2.0) 05/17/18 20:40 Sodium 145 mEq/L (136-145) 05/17/18 20:40 Potassium 4.6 mEq/L (3.5-5.1) 05/17/18 20:40 Chloride 107 mEq/L (98-107) 05/17/18 20:40 Carbon Dioxide 22.5 mEq/L (21.0-31.0) 05/17/18 20:40 Anion Gap 20.1 (7.0-16.0) H 05/17/18 20:40 BUN 25 mg/dL (7-25) 05/17/18 20:40 Creatinine 0.8 mg/dL (0.6-1.2) 05/17/18 20:40 Est GFR ( Amer) TNP 05/17/18 20:40 Est GFR (Non-Af Amer) TNP 05/17/18 20:40 BUN/Creatinine Ratio 31.3 05/17/18 20:40 Glucose 179 mg/dL (70-105) H 05/17/18 20:40 Calcium 9.7 mg/dL (8.6-10.3) 05/17/18 20:40 Total Bilirubin 0.3 mg/dL (0.3-1.0) 05/17/18 20:40 AST 16 U/L (13-39) 05/17/18 20:40 ALT 6 U/L (7-52) L 05/17/18 20:40 Alkaline Phosphatase 114 U/L (34-104) H 05/17/18 20:40 Total Protein 7.4 gm/dL (6.0-8.3) 05/17/18 20:40 Albumin 3.9 gm/dL (3.7-5.3) 05/17/18 20:40 Globulin 3.5 gm/dL 05/17/18 20:40 Albumin/Globulin Ratio 1.1 (1.0-1.8) 05/17/18 20:40 Triglycerides 132 mg/dL (<150) 05/17/18 20:40 Cholesterol 220 mg/dL (<200) H 05/17/18 20:40 LDL Cholesterol Direct 139 mg/dL (75-193) 05/17/18 20:40 HDL Cholesterol 58 mg/dL (23-92) 05/17/18 20:40 - Physical Exam Vitals and I&O: Vital Signs Temp 98.2 F 05/23/18 06:32 Pulse 76 05/23/18 06:32 Resp 18 05/23/18 06:32 BP 139/89 05/23/18 06:32 Pulse Ox 90 05/23/18 06:32 Intake & Output 05/22/18 05/23/18 05/23/18 18:59 06:59 18:59 Intake Total 240 Output Total 1 Balance 239 Intake: Oral 240 Output: Urine/Stool Mix 1 Other: # Voids 1 Active Medications: Current Medications Acetaminophen (Tylenol) 650 mg PO Q4HR PRN PRN Reason: Mild Pain / Temp above 100 Stop: 07/16/18 22:57 Acetaminophen/Hydrocodone Bitart ([place] 5mg/325mg) 1 tab PO Q4H PRN PRN Reason: Pain (Moderate) Stop: 07/16/18 22:57 Last Admin: 05/22/18 13:23 Dose: 1 tab Ferrous Sulfate (Iron) 325 mg PO DAILY [facility] Stop: 07/17/18 08:59 Last Admin: 05/23/18 08:30 Dose: 325 mg Lorazepam (Ativan) 1 mg PO BID [facility]; Protocol Stop: 07/17/18 08:59 Last Admin: 05/23/18 08:30 Dose: 1 mg Lorazepam (Ativan) 0.5 mg PO Q4HR PRN; Protocol PRN Reason: Anxiety Stop: 06/16/18 23:00 Last Admin: 05/22/18 21:11 Dose: 0.5 mg Magnesium Hydroxide (Milk Of Magnesia) 30 ml PO HS PRN PRN Reason: Constipation Mupirocin (Bactroban Oint) 1 appl NS BID [facility] Stop: 05/24/18 17:01 Last Admin: 05/23/18 08:37 Dose: 1 appl Pantoprazole Sodium (Protonix) 40 mg PO 0630 [facility] Stop: 07/17/18 06:29 Last Admin: 05/23/18 06:15 Dose: Not Given Polyethylene Glycol (Miralax) 17 gm PO DAILY [facility] Stop: 07/17/18 08:59 Last Admin: 05/23/18 08:31 Dose: Not Given Quetiapine Fumarate (Seroquel) 25 mg PO BID [facility]; Protocol Stop: 07/18/18 08:59 Last Admin: 05/23/18 08:31 Dose: 25 mg Zolpidem Tartrate (Ambien) 5 mg PO HS PRN PRN Reason: Insomnia Stop: 07/16/18 22:57 Last Admin: 05/22/18 23:15 Dose: 5 mg General: alert, disheveled HEENT: NC/AT Neck: Supple Lungs: CTAB Cardiovascular: RRR, Normal S2 Extremities: clear Internal Medicine Assmt/Plan - Assessment Assessment: GERD H/O A FIB WEKANESS DEPRESSION - Plan Plan: as per psych will monitor as problems arise Nutritional Asmnt/Malnutr-PDOC - Dietary Evaluation Malnutrition Findings (Please click <Entered> for more info): Nutritional Asmnt/Malnutrition Start: 05/20/18 15: 34 Text: Status: Complete Freq: Protocol: Document 05/20/18 15:40 RUPINDER (Rec: 05/20/18 15:52 RUPINDER [email or web address]) Nutritional Asmnt/Malnutrition Patient General Information Nutritional Screening Moderate Risk Diagnosis psychosis Pertinent Medical Hx/Surgical Hx PUD/GERD, AFIB, weakness, depression Subjective Information Pt eating lunch and appeared to have finished 100% at time of visit. Pt states she dislikes the zucchini and quinoa served, but likes rice. Pt appears to have missing teeth, but PO intake 100% yesterday as well. Current Diet Order/ Nutrition Support mech soft chopped, SAMAN Pertinent Medications iron, MOM, protonix, miralax, seroquel Pertinent Labs 05/17: glucose 179, cholesterol 220 Nutritional Hx/Data Height 1.63 m Height (Calculated Centimeters) 162.6 Current Weight (lbs) 68.039 kg Weight (Calculated Kilograms) 68.0 Weight (Calculated Grams) 50350.9 [place] Body Weight 120 lb Body Mass Index (BMI) 25.7 Weight Status Overweight GI Symptoms GI Symptoms None Last BM 05/20 Difficult in: None Food Allergies No Skin Integrity/Comment: anna, caridad 16 Current %PO Good (75-100%) Estimated Nutritional Goals BEE in Kcals: Using Current wt Calories/Kcals/Kg 23-27 Kcals Calculated 2285-3372 Protein: Using Current wt Protein g/k.0 Protein Calculated 68 g Fluid: ml 4447-0413 (1 ml/kcal) Nutritional Problem No current Nutrition Prob Problem no nutrition dx at this time Malnutrition Alert Is there a minimum of two criteria No selected? Query Text:Check all the applicable criteria. A minimum of two criteria are recommended for diagnosis of either severe or non-severe malnutrition. Malnutrition Related to Morbid Obesity Malnutrition related to morbid obesity No Intervention/Recommendation Comments 1. Continue with mech soft chopped, SAMAN diet as ordered 2. Consider starting CCHO diet if blood glucose continue above normal limits 3. Monitor PO intake, wt, labs and skin integrity 4. F/U as moderate risk in 3-5 days, 05/23-05/25 Expected Outcomes/Goals Expected Outcomes/Goals 1. PO intake to continue meeting at least 75% of all meals 2. Wt stability, skin to remain intact, and nutrition related labs to approach normal limits Reviewed by Mora Gonsales RD
[2018-05-24] MEDS: Pantoprazole 40 mg EC Tab PO SCH (06:42)
--- NOTE | 2018-05-24 09:01 | Progress Notes ---
DATE: 05/23/2018 SUBJECTIVE: The patient was seen and evaluated. The patient's chart reviewed. Today on [id number] evaluation, the patient continues to be very suspicious ____ through the loop and easily triggered by her roommate and suspicious about her roommate. MENTAL STATUS EXAMINATION: Suspicious, paranoid. ASSESSMENT AND PLAN: Due to the patient's suspicious behavior and paranoid behavior, needs continuous further stabilization. JOB# [id number]
[2018-05-24] MEDS: POLYETHYLENE GLYCOL 3350 17 GM PACK PO SCH (09:56)
[2018-05-24] MEDS: Ferrous Sulfate 325 MG TAB PO SCH (09:56)
--- NOTE | 2018-05-24 10:27 | Internal Medicine Prog Note ---
Internal Medicine Subjective - Subjective Patient seen and examined:: chart reviewed Patient is:: awake, confused (easily irritable ), other (suspecious) Per staff patient has:: no adverse event Internal Medicine Objective - Results Result Diagrams: 05/17/18 20:40 05/17/18 20:40 Recent Labs: Laboratory Last Values WBC 11.3 Th/cmm (4.8-10.8) H 05/17/18 20:40 RBC 5.47 Mil/cmm (3.80-5.20) H 05/17/18 20:40 Hgb 15.1 gm/dL (12-16) 05/17/18 20:40 Hct 46.4 % (41.0-60) 05/17/18 20:40 MCV 85.0 fl (81-100) 05/17/18 20:40 MCH 27.6 pg (27.0-31.0) 05/17/18 20:40 MCHC Differential 32.5 pg (28.0-36.0) 05/17/18 20:40 RDW 15.9 % (11.5-20.0) 05/17/18 20:40 Plt Count 243 Th/cmm (150-400) 05/17/18 20:40 MPV 8.5 fl 05/17/18 20:40 Neutrophils % 62.5 % (40.0-80.0) 05/17/18 20:40 Lymphocytes % 25.1 % (20.0-50.0) 05/17/18 20:40 Monocytes % 8.8 % (2.0-10.0) 05/17/18 20:40 Eosinophils % 3.1 % (0.0-5.0) 05/17/18 20:40 Basophils % 0.5 % (0.0-2.0) 05/17/18 20:40 Sodium 145 mEq/L (136-145) 05/17/18 20:40 Potassium 4.6 mEq/L (3.5-5.1) 05/17/18 20:40 Chloride 107 mEq/L (98-107) 05/17/18 20:40 Carbon Dioxide 22.5 mEq/L (21.0-31.0) 05/17/18 20:40 Anion Gap 20.1 (7.0-16.0) H 05/17/18 20:40 BUN 25 mg/dL (7-25) 05/17/18 20:40 Creatinine 0.8 mg/dL (0.6-1.2) 05/17/18 20:40 Est GFR ( Amer) TNP 05/17/18 20:40 Est GFR (Non-Af Amer) TNP 05/17/18 20:40 BUN/Creatinine Ratio 31.3 05/17/18 20:40 Glucose 179 mg/dL (70-105) H 05/17/18 20:40 Calcium 9.7 mg/dL (8.6-10.3) 05/17/18 20:40 Total Bilirubin 0.3 mg/dL (0.3-1.0) 05/17/18 20:40 AST 16 U/L (13-39) 05/17/18 20:40 ALT 6 U/L (7-52) L 05/17/18 20:40 Alkaline Phosphatase 114 U/L (34-104) H 05/17/18 20:40 Total Protein 7.4 gm/dL (6.0-8.3) 05/17/18 20:40 Albumin 3.9 gm/dL (3.7-5.3) 05/17/18 20:40 Globulin 3.5 gm/dL 05/17/18 20:40 Albumin/Globulin Ratio 1.1 (1.0-1.8) 05/17/18 20:40 Triglycerides 132 mg/dL (<150) 05/17/18 20:40 Cholesterol 220 mg/dL (<200) H 05/17/18 20:40 LDL Cholesterol Direct 139 mg/dL (75-193) 05/17/18 20:40 HDL Cholesterol 58 mg/dL (23-92) 05/17/18 20:40 - Physical Exam Vitals and I&O: Vital Signs Temp 97.8 F 05/24/18 06:36 Pulse 64 05/24/18 06:36 Resp 18 05/24/18 06:36 BP 130/72 05/24/18 06:36 Pulse Ox 99 05/24/18 06:36 Intake & Output 05/23/18 05/24/18 05/24/18 18:59 06:59 18:59 Intake Total 240 Balance 240 Intake: Oral 240 Other: # Voids 3 # Bowel Movements 1 Active Medications: Current Medications Acetaminophen (Tylenol) 650 mg PO Q4HR PRN PRN Reason: Mild Pain / Temp above 100 Stop: 07/16/18 22:57 Acetaminophen/Hydrocodone Bitart ([place] 5mg/325mg) 1 tab PO Q4H PRN PRN Reason: Pain (Moderate) Stop: 07/16/18 22:57 Last Admin: 05/22/18 13:23 Dose: 1 tab Ferrous Sulfate (Iron) 325 mg PO DAILY [facility] Stop: 07/17/18 08:59 Last Admin: 05/24/18 09:56 Dose: Not Given Lorazepam (Ativan) 1 mg PO BID [facility]; Protocol Stop: 07/17/18 08:59 Last Admin: 05/24/18 09:56 Dose: Not Given Lorazepam (Ativan) 0.5 mg PO Q4HR PRN; Protocol PRN Reason: Anxiety Stop: 06/16/18 23:00 Last Admin: 05/22/18 21:11 Dose: 0.5 mg Magnesium Hydroxide (Milk Of Magnesia) 30 ml PO HS PRN PRN Reason: Constipation Mupirocin (Bactroban Oint) 1 appl NS BID [facility] Stop: 05/24/18 17:01 Last Admin: 05/24/18 09:56 Dose: Not Given Pantoprazole Sodium (Protonix) 40 mg PO 0630 [facility] Stop: 07/17/18 06:29 Last Admin: 05/24/18 06:42 Dose: Not Given Polyethylene Glycol (Miralax) 17 gm PO DAILY [facility] Stop: 07/17/18 08:59 Last Admin: 05/24/18 09:56 Dose: Not Given Quetiapine Fumarate (Seroquel) 25 mg PO BID [facility]; Protocol Stop: 07/18/18 08:59 Last Admin: 05/24/18 09:56 Dose: Not Given Zolpidem Tartrate (Ambien) 5 mg PO HS PRN PRN Reason: Insomnia Stop: 07/16/18 22:57 Last Admin: 05/22/18 23:15 Dose: 5 mg General: alert, disheveled HEENT: NC/AT Neck: Supple Lungs: CTAB Cardiovascular: RRR, Normal S2 Extremities: clear Internal Medicine Assmt/Plan - Assessment Assessment: GERD H/O A FIB WEKANESS DEPRESSION - Plan Plan: as per psych will monitor as problems arise Nutritional Asmnt/Malnutr-PDOC - Dietary Evaluation Malnutrition Findings (Please click <Entered> for more info): Nutritional Asmnt/Malnutrition Start: 05/20/18 15: 34 Text: Status: Complete Freq: Protocol: Document 05/20/18 15:40 RUPINDER (Rec: 05/20/18 15:52 RPUINDER [email or web address]) Nutritional Asmnt/Malnutrition Patient General Information Nutritional Screening Moderate Risk Diagnosis psychosis Pertinent Medical Hx/Surgical Hx PUD/GERD, AFIB, weakness, depression Subjective Information Pt eating lunch and appeared to have finished 100% at time of visit. Pt states she dislikes the zucchini and quinoa served, but likes rice. Pt appears to have missing teeth, but PO intake 100% yesterday as well. Current Diet Order/ Nutrition Support [facility] soft chopped, SAMAN Pertinent Medications iron, MOM, protonix, miralax, seroquel Pertinent Labs 05/17: glucose 179, cholesterol 220 Nutritional Hx/Data Height 1.63 m Height (Calculated Centimeters) 162.6 Current Weight (lbs) 68.039 kg Weight (Calculated Kilograms) 68.0 Weight (Calculated Grams) 30758.9 [place] Body Weight 120 lb Body Mass Index (BMI) 25.7 Weight Status Overweight GI Symptoms GI Symptoms None Last BM 05/20 Difficult in: None Food Allergies No Skin Integrity/Comment: caridad castillo 16 Current %PO Good (75-100%) Estimated Nutritional Goals BEE in Kcals: Using Current wt Calories/Kcals/Kg 23-27 Kcals Calculated 4057-9978 Protein: Using Current wt Protein g/k.0 Protein Calculated 68 g Fluid: ml 9819-2030 (1 ml/kcal) Nutritional Problem No current Nutrition Prob Problem no nutrition dx at this time Malnutrition Alert Is there a minimum of two criteria No selected? Query Text:Check all the applicable criteria. A minimum of two criteria are recommended for diagnosis of either severe or non-severe malnutrition. Malnutrition Related to Morbid Obesity Malnutrition related to morbid obesity No Intervention/Recommendation Comments 1. Continue with [employer] soft chopped, SAMAN diet as ordered 2. Consider starting CCHO diet if blood glucose continue above normal limits 3. Monitor PO intake, wt, labs and skin integrity 4. F/U as moderate risk in 3-5 days, 05/23-05/25 Expected Outcomes/Goals Expected Outcomes/Goals 1. PO intake to continue meeting at least 75% of all meals 2. Wt stability, skin to remain intact, and nutrition related labs to approach normal limits Reviewed by Mora Gonsales RD
[2018-05-25] MEDS: Pantoprazole 40 mg EC Tab PO SCH (05:43)
--- NOTE | 2018-05-25 06:31 | Progress Notes ---
DATE: SUBJECTIVE: Chart reviewed and the patient interviewed. Also discussed the patient's condition with the staff and reviewed records and labs. "I don't take medicine." "I can't do this." The patient is still confused and agitated. The patient also is restless in bed and is trying to take off her medications. The patient also is still interacting minimally with others. She also has mood swings. Otherwise, the patient is still refusing to take medications with no side effects. ASSESSMENT: The patient is still agitated and is still psychotic and actively hallucinating. TREATMENT PLAN: Advised the patient to take her medications and hopefully the patient will start to take her medications. At the same time, we will continue to work on her irritable mood and her agitation and we will continue to follow up closely. [facility]# [id number]
[2018-05-25] MEDS: Ferrous Sulfate 325 MG TAB PO SCH (08:18)
[2018-05-25] MEDS: POLYETHYLENE GLYCOL 3350 17 GM PACK PO SCH (08:18)
[2018-05-25] MEDS ORDERED: Haloperidol Lactate 5 mg/mL 1mL Vial IM ONE (09:58)
[2018-05-25] MEDS ORDERED: Haloperidol Lactate 5 mg/mL 1mL Vial ONE (10:00)
--- NOTE | 2018-05-25 12:44 | Internal Medicine Prog Note ---
Internal Medicine Subjective - Subjective Service Date: 05/25/18 Patient is:: awake, confused (easily irritable ), other (suspecious) Per staff patient has:: no adverse event Internal Medicine Objective - Results Result Diagrams: 05/17/18 20:40 05/17/18 20:40 Recent Labs: Laboratory Last Values WBC 11.3 Th/cmm (4.8-10.8) H 05/17/18 20:40 RBC 5.47 Mil/cmm (3.80-5.20) H 05/17/18 20:40 Hgb 15.1 gm/dL (12-16) 05/17/18 20:40 Hct 46.4 % (41.0-60) 05/17/18 20:40 MCV 85.0 fl (81-100) 05/17/18 20:40 MCH 27.6 pg (27.0-31.0) 05/17/18 20:40 MCHC Differential 32.5 pg (28.0-36.0) 05/17/18 20:40 RDW 15.9 % (11.5-20.0) 05/17/18 20:40 Plt Count 243 Th/cmm (150-400) 05/17/18 20:40 MPV 8.5 fl 05/17/18 20:40 Neutrophils % 62.5 % (40.0-80.0) 05/17/18 20:40 Lymphocytes % 25.1 % (20.0-50.0) 05/17/18 20:40 Monocytes % 8.8 % (2.0-10.0) 05/17/18 20:40 Eosinophils % 3.1 % (0.0-5.0) 05/17/18 20:40 Basophils % 0.5 % (0.0-2.0) 05/17/18 20:40 Sodium 145 mEq/L (136-145) 05/17/18 20:40 Potassium 4.6 mEq/L (3.5-5.1) 05/17/18 20:40 Chloride 107 mEq/L (98-107) 05/17/18 20:40 Carbon Dioxide 22.5 mEq/L (21.0-31.0) 05/17/18 20:40 Anion Gap 20.1 (7.0-16.0) H 05/17/18 20:40 BUN 25 mg/dL (7-25) 05/17/18 20:40 Creatinine 0.8 mg/dL (0.6-1.2) 05/17/18 20:40 Est GFR ( Amer) TNP 05/17/18 20:40 Est GFR (Non-Af Amer) TNP 05/17/18 20:40 BUN/Creatinine Ratio 31.3 05/17/18 20:40 Glucose 179 mg/dL (70-105) H 05/17/18 20:40 Calcium 9.7 mg/dL (8.6-10.3) 05/17/18 20:40 Total Bilirubin 0.3 mg/dL (0.3-1.0) 05/17/18 20:40 AST 16 U/L (13-39) 05/17/18 20:40 ALT 6 U/L (7-52) L 05/17/18 20:40 Alkaline Phosphatase 114 U/L (34-104) H 05/17/18 20:40 Total Protein 7.4 gm/dL (6.0-8.3) 05/17/18 20:40 Albumin 3.9 gm/dL (3.7-5.3) 05/17/18 20:40 Globulin 3.5 gm/dL 05/17/18 20:40 Albumin/Globulin Ratio 1.1 (1.0-1.8) 05/17/18 20:40 Triglycerides 132 mg/dL (<150) 05/17/18 20:40 Cholesterol 220 mg/dL (<200) H 05/17/18 20:40 LDL Cholesterol Direct 139 mg/dL (75-193) 05/17/18 20:40 HDL Cholesterol 58 mg/dL (23-92) 05/17/18 20:40 - Physical Exam Vitals and I&O: Vital Signs Temp 79.6 F 05/24/18 20:20 Pulse 96 05/24/18 20:20 Resp 19 05/24/18 20:20 BP 164/99 05/24/18 20:20 Pulse Ox 96 05/24/18 20:20 Intake & Output 05/24/18 05/25/18 05/25/18 18:59 06:59 18:59 Intake Total 120 Balance 120 Intake: Oral 120 Other: # Voids 2 # Bowel Movements 0 Active Medications: Current Medications Acetaminophen (Tylenol) 650 mg PO Q4HR PRN PRN Reason: Mild Pain / Temp above 100 Stop: 07/16/18 22:57 Last Admin: 05/24/18 19:36 Dose: 650 mg Ferrous Sulfate (Iron) 325 mg PO DAILY [facility] Stop: 07/17/18 08:59 Last Admin: 05/25/18 08:18 Dose: Not Given Lorazepam (Ativan) 1 mg PO BID [facility]; Protocol Stop: 07/17/18 08:59 Last Admin: 05/25/18 08:18 Dose: Not Given Lorazepam (Ativan) 0.5 mg PO Q4HR PRN; Protocol PRN Reason: Anxiety Stop: 06/16/18 23:00 Last Admin: 05/24/18 19:37 Dose: 0.5 mg Magnesium Hydroxide (Milk Of Magnesia) 30 ml PO HS PRN PRN Reason: Constipation Pantoprazole Sodium (Protonix) 40 mg PO 0630 [facility] Stop: 07/17/18 06:29 Last Admin: 05/25/18 05:43 Dose: Not Given Polyethylene Glycol (Miralax) 17 gm PO DAILY [facility] Stop: 07/17/18 08:59 Last Admin: 05/25/18 08:18 Dose: Not Given Quetiapine Fumarate (Seroquel) 25 mg PO BID [facility]; Protocol Stop: 07/18/18 08:59 Last Admin: 05/25/18 08:18 Dose: Not Given Zolpidem Tartrate (Ambien) 5 mg PO HS PRN PRN Reason: Insomnia Stop: 07/16/18 22:57 Last Admin: 05/22/18 23:15 Dose: 5 mg General: alert, disheveled HEENT: NC/AT Neck: Supple Lungs: CTAB Cardiovascular: RRR, Normal S2 Extremities: clear Internal Medicine Assmt/Plan - Assessment Assessment: GERD hx afib weakness depression - Plan Plan: continue snf meds continue current tx Nutritional Asmnt/Malnutr-PDOC - Dietary Evaluation Malnutrition Findings (Please click <Entered> for more info): Nutritional Asmnt/Malnutrition Start: 05/20/18 15: 34 Text: Status: Complete Freq: Protocol: Document 05/20/18 15:40 RUPINDER (Rec: 05/20/18 15:52 RUPINDER [email or web address]) Nutritional Asmnt/Malnutrition Patient General Information Nutritional Screening Moderate Risk Diagnosis psychosis Pertinent Medical Hx/Surgical Hx PUD/GERD, AFIB, weakness, depression Subjective Information Pt eating lunch and appeared to have finished 100% at time of visit. Pt states she dislikes the zucchini and quinoa served, but likes rice. Pt appears to have missing teeth, but PO intake 100% yesterday as well. Current Diet Order/ Nutrition Support [facility] soft chopped, SAMAN Pertinent Medications iron, MOM, protonix, miralax, seroquel Pertinent Labs 05/17: glucose 179, cholesterol 220 Nutritional Hx/Data Height 5 ft 4 in Height (Calculated Centimeters) 162.6 Current Weight (lbs) 150 lb Weight (Calculated Kilograms) 68.0 Weight (Calculated Grams) 91909.9 [place] Body Weight 120 lb Body Mass Index (BMI) 25.7 Weight Status Overweight GI Symptoms GI Symptoms None Last BM 05/20 Difficult in: None Food Allergies No Skin Integrity/Comment: intact, caridad 16 Current %PO Good (75-100%) Estimated Nutritional Goals BEE in Kcals: Using Current wt Calories/Kcals/Kg 23-27 Kcals Calculated 0974-5511 Protein: Using Current wt Protein g/k.0 Protein Calculated 68 g Fluid: ml 3126-1745 (1 ml/kcal) Nutritional Problem No current Nutrition Prob Problem no nutrition dx at this time Malnutrition Alert Is there a minimum of two criteria No selected? Query Text:Check all the applicable criteria. A minimum of two criteria are recommended for diagnosis of either severe or non-severe malnutrition. Malnutrition Related to Morbid Obesity Malnutrition related to morbid obesity No Intervention/Recommendation Comments 1. Continue with [facility] soft chopped, SAMAN diet as ordered 2. Consider starting CCHO diet if blood glucose continue above normal limits 3. Monitor PO intake, wt, labs and skin integrity 4. F/U as moderate risk in 3-5 days, 05/23-05/25 Expected Outcomes/Goals Expected Outcomes/Goals 1. PO intake to continue meeting at least 75% of all meals 2. Wt stability, skin to remain intact, and nutrition related labs to approach normal limits Reviewed by Mora Gonsales RD
--- NOTE | 2018-05-25 15:57 | Progress Notes ---
DATE: 05/25/[address] Hicks. Case was discussed with staff of the patient, reviewed records. This is an 82-year-old female who was admitted on 04/16/2018 because of severe agitation, yelling and screaming. She is demented and confused, came from ____ hospital because of agitation, yelling and screaming, unable to follow directions with a history of dementia, atrial fibrillation, gastroesophageal reflux disease. The patient continues to be confused, continues to have episodes of yelling and screaming. Continues to be unpredictable, impulsive with minimal interaction with staff. The patient is needing full care. No side effects of the medication. No sedation, no nausea and no extrapyramidal symptoms. We will contact the patient in group therapy, milieu therapy, and adjust medications as needed. JOB# [id number]
[2018-05-26] MEDS: Pantoprazole 40 mg EC Tab PO SCH (06:39)
[2018-05-26] MEDS: POLYETHYLENE GLYCOL 3350 17 GM PACK PO SCH (09:42)
[2018-05-26] MEDS: Ferrous Sulfate 325 MG TAB PO SCH (09:42)
--- NOTE | 2018-05-26 14:07 | Internal Medicine Prog Note ---
Internal Medicine Subjective - Subjective Patient seen and examined:: chart reviewed Patient is:: awake, confused (easily irritable ) Per staff patient has:: no adverse event Internal Medicine Objective - Results Result Diagrams: 05/17/18 20:40 05/17/18 20:40 Recent Labs: Laboratory Last Values WBC 11.3 Th/cmm (4.8-10.8) H 05/17/18 20:40 RBC 5.47 Mil/cmm (3.80-5.20) H 05/17/18 20:40 Hgb 15.1 gm/dL (12-16) 05/17/18 20:40 Hct 46.4 % (41.0-60) 05/17/18 20:40 MCV 85.0 fl (81-100) 05/17/18 20:40 MCH 27.6 pg (27.0-31.0) 05/17/18 20:40 MCHC Differential 32.5 pg (28.0-36.0) 05/17/18 20:40 RDW 15.9 % (11.5-20.0) 05/17/18 20:40 Plt Count 243 Th/cmm (150-400) 05/17/18 20:40 MPV 8.5 fl 05/17/18 20:40 Neutrophils % 62.5 % (40.0-80.0) 05/17/18 20:40 Lymphocytes % 25.1 % (20.0-50.0) 05/17/18 20:40 Monocytes % 8.8 % (2.0-10.0) 05/17/18 20:40 Eosinophils % 3.1 % (0.0-5.0) 05/17/18 20:40 Basophils % 0.5 % (0.0-2.0) 05/17/18 20:40 Sodium 145 mEq/L (136-145) 05/17/18 20:40 Potassium 4.6 mEq/L (3.5-5.1) 05/17/18 20:40 Chloride 107 mEq/L (98-107) 05/17/18 20:40 Carbon Dioxide 22.5 mEq/L (21.0-31.0) 05/17/18 20:40 Anion Gap 20.1 (7.0-16.0) H 05/17/18 20:40 BUN 25 mg/dL (7-25) 05/17/18 20:40 Creatinine 0.8 mg/dL (0.6-1.2) 05/17/18 20:40 Est GFR ( Amer) TNP 05/17/18 20:40 Est GFR (Non-Af Amer) TNP 05/17/18 20:40 BUN/Creatinine Ratio 31.3 05/17/18 20:40 Glucose 179 mg/dL (70-105) H 05/17/18 20:40 Calcium 9.7 mg/dL (8.6-10.3) 05/17/18 20:40 Total Bilirubin 0.3 mg/dL (0.3-1.0) 05/17/18 20:40 AST 16 U/L (13-39) 05/17/18 20:40 ALT 6 U/L (7-52) L 05/17/18 20:40 Alkaline Phosphatase 114 U/L (34-104) H 05/17/18 20:40 Total Protein 7.4 gm/dL (6.0-8.3) 05/17/18 20:40 Albumin 3.9 gm/dL (3.7-5.3) 05/17/18 20:40 Globulin 3.5 gm/dL 05/17/18 20:40 Albumin/Globulin Ratio 1.1 (1.0-1.8) 05/17/18 20:40 Triglycerides 132 mg/dL (<150) 05/17/18 20:40 Cholesterol 220 mg/dL (<200) H 05/17/18 20:40 LDL Cholesterol Direct 139 mg/dL (75-193) 05/17/18 20:40 HDL Cholesterol 58 mg/dL (23-92) 05/17/18 20:40 - Physical Exam Vitals and I&O: Vital Signs Temp 97.5 F 05/26/18 04:59 Pulse 65 05/26/18 04:59 Resp 18 05/26/18 04:59 BP 123/67 05/26/18 04:59 Pulse Ox 98 05/26/18 04:59 Intake & Output 05/25/18 05/26/18 05/26/18 18:59 06:59 18:59 Intake Total 480 Balance 480 Intake: Oral 480 Other: # Voids 4 2 # Bowel Movements 1 Active Medications: Current Medications Acetaminophen (Tylenol) 650 mg PO Q4HR PRN PRN Reason: Mild Pain / Temp above 100 Stop: 07/16/18 22:57 Last Admin: 05/24/18 19:36 Dose: 650 mg Ferrous Sulfate (Iron) 325 mg PO DAILY [facility] Stop: 07/17/18 08:59 Last Admin: 05/26/18 09:42 Dose: 325 mg Lorazepam (Ativan) 1 mg PO BID [facility]; Protocol Stop: 07/17/18 08:59 Last Admin: 05/26/18 09:42 Dose: 1 mg Lorazepam (Ativan) 0.5 mg PO Q4HR PRN; Protocol PRN Reason: Anxiety Stop: 06/16/18 23:00 Last Admin: 05/24/18 19:37 Dose: 0.5 mg Magnesium Hydroxide (Milk Of Magnesia) 30 ml PO HS PRN PRN Reason: Constipation Pantoprazole Sodium (Protonix) 40 mg PO 0630 [facility] Stop: 07/17/18 06:29 Last Admin: 05/26/18 06:39 Dose: Not Given Polyethylene Glycol (Miralax) 17 gm PO DAILY [facility] Stop: 07/17/18 08:59 Last Admin: 05/26/18 09:42 Dose: Not Given Quetiapine Fumarate (Seroquel) 25 mg PO BID [facility]; Protocol Stop: 07/18/18 08:59 Last Admin: 05/26/18 09:42 Dose: 25 mg Zolpidem Tartrate (Ambien) 5 mg PO HS PRN PRN Reason: Insomnia Stop: 07/16/18 22:57 Last Admin: 05/22/18 23:15 Dose: 5 mg General: alert, disheveled HEENT: NC/AT Neck: Supple Lungs: CTAB Cardiovascular: RRR, Normal S2 Extremities: clear Internal Medicine Assmt/Plan - Assessment Assessment: GERD H/O A FIB WEKANESS DEPRESSION - Plan Plan: as per psych will monitor as problems arise Nutritional Asmnt/Malnutr-PDOC - Dietary Evaluation Malnutrition Findings (Please click <Entered> for more info): Nutritional Asmnt/Malnutrition Start: 05/20/18 15: 34 Text: Status: Complete Freq: Protocol: Document 05/20/18 15:40 RUPINDER (Rec: 05/20/18 15:52 RUPINDER [email or web address]) Nutritional Asmnt/Malnutrition Patient General Information Nutritional Screening Moderate Risk Diagnosis psychosis Pertinent Medical Hx/Surgical Hx PUD/GERD, AFIB, weakness, depression Subjective Information Pt eating lunch and appeared to have finished 100% at time of visit. Pt states she dislikes the zucchini and quinoa served, but likes rice. Pt appears to have missing teeth, but PO intake 100% yesterday as well. Current Diet Order/ Nutrition Support [facility] soft chopped, SAMAN Pertinent Medications iron, MOM, protonix, miralax, seroquel Pertinent Labs 05/17: glucose 179, cholesterol 220 Nutritional Hx/Data Height 1.63 m Height (Calculated Centimeters) 162.6 Current Weight (lbs) 68.039 kg Weight (Calculated Kilograms) 68.0 Weight (Calculated Grams) 07685.9 [place] Body Weight 120 lb Body Mass Index (BMI) 25.7 Weight Status Overweight GI Symptoms GI Symptoms None Last BM 05/20 Difficult in: None Food Allergies No Skin Integrity/Comment: intact, caridad 16 Current %PO Good (75-100%) Estimated Nutritional Goals BEE in Kcals: Using Current wt Calories/Kcals/Kg 23-27 Kcals Calculated 5844-3520 Protein: Using Current wt Protein g/k.0 Protein Calculated 68 g Fluid: ml 2384-2889 (1 ml/kcal) Nutritional Problem No current Nutrition Prob Problem no nutrition dx at this time Malnutrition Alert Is there a minimum of two criteria No selected? Query Text:Check all the applicable criteria. A minimum of two criteria are recommended for diagnosis of either severe or non-severe malnutrition. Malnutrition Related to Morbid Obesity Malnutrition related to morbid obesity No Intervention/Recommendation Comments 1. Continue with [facility] soft chopped, SAMAN diet as ordered 2. Consider starting CCHO diet if blood glucose continue above normal limits 3. Monitor PO intake, wt, labs and skin integrity 4. F/U as moderate risk in 3-5 days, 05/23-05/25 Expected Outcomes/Goals Expected Outcomes/Goals 1. PO intake to continue meeting at least 75% of all meals 2. Wt stability, skin to remain intact, and nutrition related labs to approach normal limits Reviewed by Mora Gonsales RD
[2018-05-27] MEDS: Pantoprazole 40 mg EC Tab PO SCH (06:35)
[2018-05-27] MEDS: Ferrous Sulfate 325 MG TAB PO SCH (08:07)
[2018-05-27] MEDS: POLYETHYLENE GLYCOL 3350 17 GM PACK PO SCH (08:07)
--- NOTE | 2018-05-27 11:09 | Internal Medicine Prog Note ---
Internal Medicine Subjective - Subjective Service Date: 05/27/18 Patient is:: awake, confused (easily irritable ) Per staff patient has:: no adverse event Internal Medicine Objective - Results Result Diagrams: 05/17/18 20:40 05/17/18 20:40 Recent Labs: Laboratory Last Values WBC 11.3 Th/cmm (4.8-10.8) H 05/17/18 20:40 RBC 5.47 Mil/cmm (3.80-5.20) H 05/17/18 20:40 Hgb 15.1 gm/dL (12-16) 05/17/18 20:40 Hct 46.4 % (41.0-60) 05/17/18 20:40 MCV 85.0 fl (81-100) 05/17/18 20:40 MCH 27.6 pg (27.0-31.0) 05/17/18 20:40 MCHC Differential 32.5 pg (28.0-36.0) 05/17/18 20:40 RDW 15.9 % (11.5-20.0) 05/17/18 20:40 Plt Count 243 Th/cmm (150-400) 05/17/18 20:40 MPV 8.5 fl 05/17/18 20:40 Neutrophils % 62.5 % (40.0-80.0) 05/17/18 20:40 Lymphocytes % 25.1 % (20.0-50.0) 05/17/18 20:40 Monocytes % 8.8 % (2.0-10.0) 05/17/18 20:40 Eosinophils % 3.1 % (0.0-5.0) 05/17/18 20:40 Basophils % 0.5 % (0.0-2.0) 05/17/18 20:40 Sodium 145 mEq/L (136-145) 05/17/18 20:40 Potassium 4.6 mEq/L (3.5-5.1) 05/17/18 20:40 Chloride 107 mEq/L (98-107) 05/17/18 20:40 Carbon Dioxide 22.5 mEq/L (21.0-31.0) 05/17/18 20:40 Anion Gap 20.1 (7.0-16.0) H 05/17/18 20:40 BUN 25 mg/dL (7-25) 05/17/18 20:40 Creatinine 0.8 mg/dL (0.6-1.2) 05/17/18 20:40 Est GFR ( Amer) TNP 05/17/18 20:40 Est GFR (Non-Af Amer) TNP 05/17/18 20:40 BUN/Creatinine Ratio 31.3 05/17/18 20:40 Glucose 179 mg/dL (70-105) H 05/17/18 20:40 Calcium 9.7 mg/dL (8.6-10.3) 05/17/18 20:40 Total Bilirubin 0.3 mg/dL (0.3-1.0) 05/17/18 20:40 AST 16 U/L (13-39) 05/17/18 20:40 ALT 6 U/L (7-52) L 05/17/18 20:40 Alkaline Phosphatase 114 U/L (34-104) H 05/17/18 20:40 Total Protein 7.4 gm/dL (6.0-8.3) 05/17/18 20:40 Albumin 3.9 gm/dL (3.7-5.3) 05/17/18 20:40 Globulin 3.5 gm/dL 05/17/18 20:40 Albumin/Globulin Ratio 1.1 (1.0-1.8) 05/17/18 20:40 Triglycerides 132 mg/dL (<150) 05/17/18 20:40 Cholesterol 220 mg/dL (<200) H 05/17/18 20:40 LDL Cholesterol Direct 139 mg/dL (75-193) 05/17/18 20:40 HDL Cholesterol 58 mg/dL (23-92) 05/17/18 20:40 - Physical Exam Vitals and I&O: Vital Signs Temp 97.2 F 05/27/18 06:44 Pulse 64 05/27/18 06:44 Resp 18 05/27/18 06:44 BP 104/68 05/27/18 06:44 Pulse Ox 97 05/27/18 06:44 Intake & Output 05/26/18 05/27/18 05/27/18 18:59 06:59 18:59 Intake Total 1200 120 Balance 1200 120 Intake: Oral 1200 120 Other: # Voids 3 # Bowel Movements 1 Active Medications: Current Medications Acetaminophen (Tylenol) 650 mg PO Q4HR PRN PRN Reason: Mild Pain / Temp above 100 Stop: 07/16/18 22:57 Last Admin: 05/24/18 19:36 Dose: 650 mg Ferrous Sulfate (Iron) 325 mg PO DAILY [facility] Stop: 07/17/18 08:59 Last Admin: 05/27/18 08:07 Dose: Not Given Lorazepam (Ativan) 1 mg PO BID [facility]; Protocol Stop: 07/17/18 08:59 Last Admin: 05/27/18 08:04 Dose: 1 mg Lorazepam (Ativan) 0.5 mg PO Q4HR PRN; Protocol PRN Reason: Anxiety Stop: 06/16/18 23:00 Last Admin: 05/24/18 19:37 Dose: 0.5 mg Magnesium Hydroxide (Milk Of Magnesia) 30 ml PO HS PRN PRN Reason: Constipation Pantoprazole Sodium (Protonix) 40 mg PO 0630 [facility] Stop: 07/17/18 06:29 Last Admin: 05/27/18 06:35 Dose: Not Given Polyethylene Glycol (Miralax) 17 gm PO DAILY [facility] Stop: 07/17/18 08:59 Last Admin: 05/27/18 08:07 Dose: Not Given Quetiapine Fumarate (Seroquel) 25 mg PO BID [facility]; Protocol Stop: 07/18/18 08:59 Last Admin: 05/27/18 08:03 Dose: 25 mg Zolpidem Tartrate (Ambien) 5 mg PO HS PRN PRN Reason: Insomnia Stop: 07/16/18 22:57 Last Admin: 05/22/18 23:15 Dose: 5 mg General: alert, disheveled HEENT: NC/AT Neck: Supple Lungs: CTAB Cardiovascular: RRR, Normal S2 Extremities: clear Internal Medicine Assmt/Plan - Assessment Assessment: GERD hx afib weakness depression - Plan Plan: continue snf meds continue current tx Nutritional Asmnt/Malnutr-PDOC - Dietary Evaluation Malnutrition Findings (Please click <Entered> for more info): Nutritional Asmnt/Malnutrition Start: 05/20/18 15: 34 Text: Status: Complete Freq: Protocol: Document 05/20/18 15:40 RUPINDER (Rec: 05/20/18 15:52 RUPINDER [email or web address]) Nutritional Asmnt/Malnutrition Patient General Information Nutritional Screening Moderate Risk Diagnosis psychosis Pertinent Medical Hx/Surgical Hx PUD/GERD, AFIB, weakness, depression Subjective Information Pt eating lunch and appeared to have finished 100% at time of visit. Pt states she dislikes the zucchini and quinoa served, but likes rice. Pt appears to have missing teeth, but PO intake 100% yesterday as well. Current Diet Order/ Nutrition Support [facility] soft chopped, SAMAN Pertinent Medications iron, MOM, protonix, miralax, seroquel Pertinent Labs 05/17: glucose 179, cholesterol 220 Nutritional Hx/Data Height 5 ft 4 in Height (Calculated Centimeters) 162.6 Current Weight (lbs) 150 lb Weight (Calculated Kilograms) 68.0 Weight (Calculated Grams) 73944.9 [place] Body Weight 120 lb Body Mass Index (BMI) 25.7 Weight Status Overweight GI Symptoms GI Symptoms None Last BM 05/20 Difficult in: None Food Allergies No Skin Integrity/Comment: intact, caridad 16 Current %PO Good (75-100%) Estimated Nutritional Goals BEE in Kcals: Using Current wt Calories/Kcals/Kg 23-27 Kcals Calculated 0248-4561 Protein: Using Current wt Protein g/k.0 Protein Calculated 68 g Fluid: ml 6074-6187 (1 ml/kcal) Nutritional Problem No current Nutrition Prob Problem no nutrition dx at this time Malnutrition Alert Is there a minimum of two criteria No selected? Query Text:Check all the applicable criteria. A minimum of two criteria are recommended for diagnosis of either severe or non-severe malnutrition. Malnutrition Related to Morbid Obesity Malnutrition related to morbid obesity No Intervention/Recommendation Comments 1. Continue with [facility] soft chopped, SAMAN diet as ordered 2. Consider starting CCHO diet if blood glucose continue above normal limits 3. Monitor PO intake, wt, labs and skin integrity 4. F/U as moderate risk in 3-5 days, 05/23-05/25 Expected Outcomes/Goals Expected Outcomes/Goals 1. PO intake to continue meeting at least 75% of all meals 2. Wt stability, skin to remain intact, and nutrition related labs to approach normal limits Reviewed by Mora Gonsales RD
--- NOTE | 2018-05-28 06:06 | Progress Notes ---
DATE: 05/26/2018 SUBJECTIVE: Chart reviewed and the patient interviewed. Also discussed the patient's condition with the staff and reviewed records and labs. The patient is still screaming and yelling at times. The patient also is still resisting care and also at times resisting taking medications. She also still confused and restless. The patient also is still suspicious and is still paranoid. Otherwise, the patient is sleeping better. ASSESSMENT: The patient is still at times agitated, but slightly easier to redirect. TREATMENT PLAN: Continue to monitor behavior and condition closely. Also, continue adjusting psychotropic medications and followup. JOB# [id number]
[2018-05-28] MEDS: Pantoprazole 40 mg EC Tab PO SCH (06:42)
[2018-05-28] MEDS: Ferrous Sulfate 325 MG TAB PO SCH (09:09)
[2018-05-28] MEDS: POLYETHYLENE GLYCOL 3350 17 GM PACK PO SCH (09:10)
--- NOTE | 2018-05-28 14:54 | Internal Medicine Prog Note ---
Internal Medicine Subjective - Subjective Patient seen and examined:: chart reviewed Patient is:: awake, confused (improving , in no distress ) Per staff patient has:: no adverse event Internal Medicine Objective - Results Result Diagrams: 05/17/18 20:40 05/17/18 20:40 Recent Labs: Laboratory Last Values WBC 11.3 Th/cmm (4.8-10.8) H 05/17/18 20:40 RBC 5.47 Mil/cmm (3.80-5.20) H 05/17/18 20:40 Hgb 15.1 gm/dL (12-16) 05/17/18 20:40 Hct 46.4 % (41.0-60) 05/17/18 20:40 MCV 85.0 fl (81-100) 05/17/18 20:40 MCH 27.6 pg (27.0-31.0) 05/17/18 20:40 MCHC Differential 32.5 pg (28.0-36.0) 05/17/18 20:40 RDW 15.9 % (11.5-20.0) 05/17/18 20:40 Plt Count 243 Th/cmm (150-400) 05/17/18 20:40 MPV 8.5 fl 05/17/18 20:40 Neutrophils % 62.5 % (40.0-80.0) 05/17/18 20:40 Lymphocytes % 25.1 % (20.0-50.0) 05/17/18 20:40 Monocytes % 8.8 % (2.0-10.0) 05/17/18 20:40 Eosinophils % 3.1 % (0.0-5.0) 05/17/18 20:40 Basophils % 0.5 % (0.0-2.0) 05/17/18 20:40 Sodium 145 mEq/L (136-145) 05/17/18 20:40 Potassium 4.6 mEq/L (3.5-5.1) 05/17/18 20:40 Chloride 107 mEq/L (98-107) 05/17/18 20:40 Carbon Dioxide 22.5 mEq/L (21.0-31.0) 05/17/18 20:40 Anion Gap 20.1 (7.0-16.0) H 05/17/18 20:40 BUN 25 mg/dL (7-25) 05/17/18 20:40 Creatinine 0.8 mg/dL (0.6-1.2) 05/17/18 20:40 Est GFR ( Amer) TNP 05/17/18 20:40 Est GFR (Non-Af Amer) TNP 05/17/18 20:40 BUN/Creatinine Ratio 31.3 05/17/18 20:40 Glucose 179 mg/dL (70-105) H 05/17/18 20:40 Calcium 9.7 mg/dL (8.6-10.3) 05/17/18 20:40 Total Bilirubin 0.3 mg/dL (0.3-1.0) 05/17/18 20:40 AST 16 U/L (13-39) 05/17/18 20:40 ALT 6 U/L (7-52) L 05/17/18 20:40 Alkaline Phosphatase 114 U/L (34-104) H 05/17/18 20:40 Total Protein 7.4 gm/dL (6.0-8.3) 05/17/18 20:40 Albumin 3.9 gm/dL (3.7-5.3) 05/17/18 20:40 Globulin 3.5 gm/dL 05/17/18 20:40 Albumin/Globulin Ratio 1.1 (1.0-1.8) 05/17/18 20:40 Triglycerides 132 mg/dL (<150) 05/17/18 20:40 Cholesterol 220 mg/dL (<200) H 05/17/18 20:40 LDL Cholesterol Direct 139 mg/dL (75-193) 05/17/18 20:40 HDL Cholesterol 58 mg/dL (23-92) 05/17/18 20:40 - Physical Exam Vitals and I&O: Vital Signs Temp 97.9 F 05/28/18 14:00 Pulse 86 05/28/18 14:00 Resp 20 05/28/18 14:00 BP 116/63 05/28/18 14:00 Pulse Ox 98 05/28/18 14:00 Intake & Output 05/27/18 05/28/18 05/28/18 18:59 06:59 18:59 Intake Total 1200 240 Balance 1200 240 Intake: Oral 1200 240 Other: # Voids 2 # Bowel Movements 1 Active Medications: Current Medications Acetaminophen (Tylenol) 650 mg PO Q4HR PRN PRN Reason: Mild Pain / Temp above 100 Stop: 07/16/18 22:57 Last Admin: 05/24/18 19:36 Dose: 650 mg Ferrous Sulfate (Iron) 325 mg PO DAILY [facility] Stop: 07/17/18 08:59 Last Admin: 05/28/18 09:09 Dose: 325 mg Lorazepam (Ativan) 1 mg PO BID [facility]; Protocol Stop: 07/17/18 08:59 Last Admin: 05/28/18 09:09 Dose: 1 mg Lorazepam (Ativan) 0.5 mg PO Q4HR PRN; Protocol PRN Reason: Anxiety Stop: 06/16/18 23:00 Last Admin: 05/27/18 14:04 Dose: 0.5 mg Magnesium Hydroxide (Milk Of Magnesia) 30 ml PO HS PRN PRN Reason: Constipation Pantoprazole Sodium (Protonix) 40 mg PO 0630 [facility] Stop: 07/17/18 06:29 Last Admin: 05/28/18 06:42 Dose: Not Given Polyethylene Glycol (Miralax) 17 gm PO DAILY [facility] Stop: 07/17/18 08:59 Last Admin: 05/28/18 09:10 Dose: 17 gm Quetiapine Fumarate (Seroquel) 25 mg PO BID [facility]; Protocol Stop: 07/18/18 08:59 Last Admin: 05/28/18 09:09 Dose: 25 mg Zolpidem Tartrate (Ambien) 5 mg PO HS PRN PRN Reason: Insomnia Stop: 07/16/18 22:57 Last Admin: 05/22/18 23:15 Dose: 5 mg General: alert, disheveled HEENT: NC/AT Neck: Supple Lungs: CTAB Cardiovascular: RRR, Normal S2 Extremities: clear Internal Medicine Assmt/Plan - Assessment Assessment: GERD H/O A FIB WEKANESS DEPRESSION - Plan Plan: as per psych will monitor as problems arise Nutritional Asmnt/Malnutr-PDOC - Dietary Evaluation Malnutrition Findings (Please click <Entered> for more info): Nutritional Asmnt/Malnutrition Start: 05/20/18 15: 34 Text: Status: Complete Freq: Protocol: Document 05/20/18 15:40 RUPINDER (Rec: 05/20/18 15:52 RUPINDER [email or web address]) Nutritional Asmnt/Malnutrition Patient General Information Nutritional Screening Moderate Risk Diagnosis psychosis Pertinent Medical Hx/Surgical Hx PUD/GERD, AFIB, weakness, depression Subjective Information Pt eating lunch and appeared to have finished 100% at time of visit. Pt states she dislikes the zucchini and quinoa served, but likes rice. Pt appears to have missing teeth, but PO intake 100% yesterday as well. Current Diet Order/ Nutrition Support [facility] soft chopped, SAMAN Pertinent Medications iron, MOM, protonix, miralax, seroquel Pertinent Labs 05/17: glucose 179, cholesterol 220 Nutritional Hx/Data Height 1.63 m Height (Calculated Centimeters) 162.6 Current Weight (lbs) 68.039 kg Weight (Calculated Kilograms) 68.0 Weight (Calculated Grams) 18774.9 [place] Body Weight 120 lb Body Mass Index (BMI) 25.7 Weight Status Overweight GI Symptoms GI Symptoms None Last BM 05/20 Difficult in: None Food Allergies No Skin Integrity/Comment: anna, caridad 16 Current %PO Good (75-100%) Estimated Nutritional Goals BEE in Kcals: Using Current wt Calories/Kcals/Kg 23-27 Kcals Calculated 4332-3641 Protein: Using Current wt Protein g/k.0 Protein Calculated 68 g Fluid: ml 8908-3220 (1 ml/kcal) Nutritional Problem No current Nutrition Prob Problem no nutrition dx at this time Malnutrition Alert Is there a minimum of two criteria No selected? Query Text:Check all the applicable criteria. A minimum of two criteria are recommended for diagnosis of either severe or non-severe malnutrition. Malnutrition Related to Morbid Obesity Malnutrition related to morbid obesity No Intervention/Recommendation Comments 1. Continue with [facility] soft chopped, SAMAN diet as ordered 2. Consider starting CCHO diet if blood glucose continue above normal limits 3. Monitor PO intake, wt, labs and skin integrity 4. F/U as moderate risk in 3-5 days, 05/23-05/25 Expected Outcomes/Goals Expected Outcomes/Goals 1. PO intake to continue meeting at least 75% of all meals 2. Wt stability, skin to remain intact, and nutrition related labs to approach normal limits Reviewed by Mora Gonsales RD
--- NOTE | 2018-05-28 20:30 | Progress Notes ---
DATE: 05/27/2018 SUBJECTIVE: Chart reviewed and the patient interviewed. Also, discussed the patient's condition with the staff and reviewed records and labs. The patient is still confused. The patient also is still anxious and easily agitated and irritable. She also is still restless and she wants to be left alone. Also, the patient has increased mood swings. She also is still actively responding and psychotic. Otherwise, is slightly easier to redirect her. ASSESSMENT: The patient still needs redirections and still agitated. TREATMENT PLAN: Continue to monitor behavior and condition closely. Also, continue adjusting psychotropic medications and working on behavioral modification. JOB# [id number]
--- NOTE | 2018-05-28 22:22 | Progress Notes ---
DATE: SUBJECTIVE: Chart reviewed and the patient interviewed. Also discussed the patient's condition with the staff and reviewed records and labs. The patient is anxious, but her affect is brighter. The patient is calmer. The patient also is easy to follow directions. The patient denies any hallucinations or delusions and denies any thoughts of suicide or homicide. ASSESSMENT: The patient continued to show improvement. TREATMENT PLAN: We will work on discharge plans of the patient and hopefully we will discharge the patient today back to [facility] with plan for followup there. JOB# [id number]
[2018-05-29] MEDS: Pantoprazole 40 mg EC Tab PO SCH (06:33)
[2018-05-29] MEDS: Ferrous Sulfate 325 MG TAB PO SCH (09:50)
[2018-05-29] MEDS: POLYETHYLENE GLYCOL 3350 17 GM PACK PO SCH (09:50)
--- NOTE | 2018-05-29 22:21 | Progress Notes ---
DATE: 05/29/2018 SUBJECTIVE: The patient was seen in her room. The patient is awake and alert, but forgetful and a poor historian. Otherwise, the patient appears to be in no acute distress. OBJECTIVE: VITAL SIGNS: Temperature 97.8, heart rate 70, blood pressure 130/74, respirations 20, and 98% on room air. HEENT: Head is atraumatic and normocephalic. Eyes: Bilateral conjunctivae are clear. Bilateral pupils are equally round and reactive. NECK: Supple. No JVD. CARDIOVASCULAR: S1 and S2, without murmur. PULMONARY: Clear to auscultation. GASTROINTESTINAL: Soft and nontender without guarding. Positive bowel sounds. MUSCULOSKELETAL: No clubbing, no cyanosis noted. ASSESSMENT: 1. Dementia. 2. Iron deficiency anemia. 3. Osteoarthritis. 4. Gastroesophageal reflux disease. PLAN: We will keep the patient inpatient Psychiatric unit and we will follow up with psychiatrist to monitor the patient's condition and behavior. Treatment plans were discussed with the patient's nurse. Treatment plans were discussed with Dr. Llamas. JOB# [id number]
--- NOTE | 2018-05-29 23:22 | Progress Notes ---
DATE: 05/29/[address] Hicks. SUBJECTIVE: Case was discussed with staff of the patient, reviewed records. The patient continues to be anxious, continues to isolate herself, but in general, she is doing better. She denies any hallucination or delusions. She denies any suicidal ideation or homicidal ideation. In general, she is progressing. Working on discharge plan. No side effects with the medication. She is on Seroquel 25 mg twice a day. We will continue to work with the patient in group therapy, milieu therapy, and adjust the medication as needed. JOB# [id number]
[2018-05-30] MEDS: Pantoprazole 40 mg EC Tab PO SCH (06:45)
--- NOTE | 2018-05-30 08:35 | Internal Medicine Prog Note ---
Internal Medicine Subjective - Subjective Patient seen and examined:: chart reviewed Patient is:: awake, other (anxious but improving ) Per staff patient has:: no adverse event Internal Medicine Objective - Results Result Diagrams: 05/17/18 20:40 05/17/18 20:40 Recent Labs: Laboratory Last Values WBC 11.3 Th/cmm (4.8-10.8) H 05/17/18 20:40 RBC 5.47 Mil/cmm (3.80-5.20) H 05/17/18 20:40 Hgb 15.1 gm/dL (12-16) 05/17/18 20:40 Hct 46.4 % (41.0-60) 05/17/18 20:40 MCV 85.0 fl (81-100) 05/17/18 20:40 MCH 27.6 pg (27.0-31.0) 05/17/18 20:40 MCHC Differential 32.5 pg (28.0-36.0) 05/17/18 20:40 RDW 15.9 % (11.5-20.0) 05/17/18 20:40 Plt Count 243 Th/cmm (150-400) 05/17/18 20:40 MPV 8.5 fl 05/17/18 20:40 Neutrophils % 62.5 % (40.0-80.0) 05/17/18 20:40 Lymphocytes % 25.1 % (20.0-50.0) 05/17/18 20:40 Monocytes % 8.8 % (2.0-10.0) 05/17/18 20:40 Eosinophils % 3.1 % (0.0-5.0) 05/17/18 20:40 Basophils % 0.5 % (0.0-2.0) 05/17/18 20:40 Sodium 145 mEq/L (136-145) 05/17/18 20:40 Potassium 4.6 mEq/L (3.5-5.1) 05/17/18 20:40 Chloride 107 mEq/L (98-107) 05/17/18 20:40 Carbon Dioxide 22.5 mEq/L (21.0-31.0) 05/17/18 20:40 Anion Gap 20.1 (7.0-16.0) H 05/17/18 20:40 BUN 25 mg/dL (7-25) 05/17/18 20:40 Creatinine 0.8 mg/dL (0.6-1.2) 05/17/18 20:40 Est GFR ( Amer) TNP 05/17/18 20:40 Est GFR (Non-Af Amer) TNP 05/17/18 20:40 BUN/Creatinine Ratio 31.3 05/17/18 20:40 Glucose 179 mg/dL (70-105) H 05/17/18 20:40 Calcium 9.7 mg/dL (8.6-10.3) 05/17/18 20:40 Total Bilirubin 0.3 mg/dL (0.3-1.0) 05/17/18 20:40 AST 16 U/L (13-39) 05/17/18 20:40 ALT 6 U/L (7-52) L 05/17/18 20:40 Alkaline Phosphatase 114 U/L (34-104) H 05/17/18 20:40 Total Protein 7.4 gm/dL (6.0-8.3) 05/17/18 20:40 Albumin 3.9 gm/dL (3.7-5.3) 05/17/18 20:40 Globulin 3.5 gm/dL 05/17/18 20:40 Albumin/Globulin Ratio 1.1 (1.0-1.8) 05/17/18 20:40 Triglycerides 132 mg/dL (<150) 05/17/18 20:40 Cholesterol 220 mg/dL (<200) H 05/17/18 20:40 LDL Cholesterol Direct 139 mg/dL (75-193) 05/17/18 20:40 HDL Cholesterol 58 mg/dL (23-92) 05/17/18 20:40 - Physical Exam Vitals and I&O: Vital Signs Temp 97.5 F 05/30/18 06:16 Pulse 83 05/30/18 06:16 Resp 18 05/30/18 06:16 BP 150/90 05/30/18 06:16 Pulse Ox 94 05/30/18 06:16 Intake & Output 05/29/18 05/30/18 05/30/18 18:59 06:59 18:59 Intake Total 1000 Balance 1000 Intake: Oral 1000 Other: # Voids 4 # Bowel Movements 3 Active Medications: Current Medications Acetaminophen (Tylenol) 650 mg PO Q4HR PRN PRN Reason: Mild Pain / Temp above 100 Stop: 07/16/18 22:57 Last Admin: 05/24/18 19:36 Dose: 650 mg Ferrous Sulfate (Iron) 325 mg PO DAILY [facility] Stop: 07/17/18 08:59 Last Admin: 05/29/18 09:50 Dose: 325 mg Lorazepam (Ativan) 1 mg PO BID [facility]; Protocol Stop: 07/17/18 08:59 Last Admin: 05/29/18 17:38 Dose: 1 mg Lorazepam (Ativan) 0.5 mg PO Q4HR PRN; Protocol PRN Reason: Anxiety Stop: 06/16/18 23:00 Last Admin: 05/27/18 14:04 Dose: 0.5 mg Magnesium Hydroxide (Milk Of Magnesia) 30 ml PO HS PRN PRN Reason: Constipation Pantoprazole Sodium (Protonix) 40 mg PO 0630 [facility] Stop: 07/17/18 06:29 Last Admin: 05/30/18 06:45 Dose: Not Given Polyethylene Glycol (Miralax) 17 gm PO DAILY [facility] Stop: 07/17/18 08:59 Last Admin: 05/29/18 09:50 Dose: 17 gm Quetiapine Fumarate (Seroquel) 25 mg PO BID [facility]; Protocol Stop: 07/18/18 08:59 Last Admin: 05/29/18 17:37 Dose: 25 mg Zolpidem Tartrate (Ambien) 5 mg PO HS PRN PRN Reason: Insomnia Stop: 07/16/18 22:57 Last Admin: 05/22/18 23:15 Dose: 5 mg General: alert, disheveled HEENT: NC/AT Neck: Supple Lungs: CTAB Cardiovascular: RRR, Normal S2 Extremities: clear Internal Medicine Assmt/Plan - Assessment Assessment: GERD H/O A FIB WEKANESS DEPRESSION - Plan Plan: as per psych will monitor as problems arise Nutritional Asmnt/Malnutr-PDOC - Dietary Evaluation Malnutrition Findings (Please click <Entered> for more info): Nutritional Asmnt/Malnutrition Start: 05/20/18 15: 34 Text: Status: Complete Freq: Protocol: Document 05/20/18 15:40 RUPINDER (Rec: 05/20/18 15:52 RUPINDER [email or web address]) Nutritional Asmnt/Malnutrition Patient General Information Nutritional Screening Moderate Risk Diagnosis psychosis Pertinent Medical Hx/Surgical Hx PUD/GERD, AFIB, weakness, depression Subjective Information Pt eating lunch and appeared to have finished 100% at time of visit. Pt states she dislikes the zucchini and quinoa served, but likes rice. Pt appears to have missing teeth, but PO intake 100% yesterday as well. Current Diet Order/ Nutrition Support [facility] soft chopped, SAMAN Pertinent Medications iron, MOM, protonix, miralax, seroquel Pertinent Labs 05/17: glucose 179, cholesterol 220 Nutritional Hx/Data Height 1.63 m Height (Calculated Centimeters) 162.6 Current Weight (lbs) 68.039 kg Weight (Calculated Kilograms) 68.0 Weight (Calculated Grams) 22269.9 [place] Body Weight 120 lb Body Mass Index (BMI) 25.7 Weight Status Overweight GI Symptoms GI Symptoms None Last BM 05/20 Difficult in: None Food Allergies No Skin Integrity/Comment: intact, caridad 16 Current %PO Good (75-100%) Estimated Nutritional Goals BEE in Kcals: Using Current wt Calories/Kcals/Kg 23-27 Kcals Calculated 5513-9024 Protein: Using Current wt Protein g/k.0 Protein Calculated 68 g Fluid: ml 6172-5281 (1 ml/kcal) Nutritional Problem No current Nutrition Prob Problem no nutrition dx at this time Malnutrition Alert Is there a minimum of two criteria No selected? Query Text:Check all the applicable criteria. A minimum of two criteria are recommended for diagnosis of either severe or non-severe malnutrition. Malnutrition Related to Morbid Obesity Malnutrition related to morbid obesity No Intervention/Recommendation Comments 1. Continue with [facility] soft chopped, SAMAN diet as ordered 2. Consider starting CCHO diet if blood glucose continue above normal limits 3. Monitor PO intake, wt, labs and skin integrity 4. F/U as moderate risk in 3-5 days, 05/23-05/25 Expected Outcomes/Goals Expected Outcomes/Goals 1. PO intake to continue meeting at least 75% of all meals 2. Wt stability, skin to remain intact, and nutrition related labs to approach normal limits Reviewed by Mora Gonsales RD
[2018-05-30] MEDS: POLYETHYLENE GLYCOL 3350 17 GM PACK PO SCH (09:04)
[2018-05-30] MEDS: Ferrous Sulfate 325 MG TAB PO SCH (09:04)
--- NOTE | 2018-05-30 20:40 | Progress Notes ---
DATE: 05/30/2018 SUBJECTIVE: Case was discussed with staff of the patient, reviewed records. The patient continues to be anxious and irritable. She continues to have poor insight. She continues to need redirection and help with her ADLs. She is compliant with the medication with no side effects, no sedation, no nausea, and no extrapyramidal symptoms. We will continue to work with the patient in group therapy, milieu therapy, and adjust the medications as needed. JOB# [id number]
[2018-05-31] MEDS: Pantoprazole 40 mg EC Tab PO SCH (06:35)
[2018-05-31] MEDS: Ferrous Sulfate 325 MG TAB PO SCH (08:40)
[2018-05-31] MEDS: POLYETHYLENE GLYCOL 3350 17 GM PACK PO SCH (08:41)
--- NOTE | 2018-05-31 10:22 | Internal Medicine Prog Note ---
Internal Medicine Subjective - Subjective Patient seen and examined:: chart reviewed Patient is:: awake, other (anxious) Per staff patient has:: no adverse event Internal Medicine Objective - Results Result Diagrams: 05/17/18 20:40 05/17/18 20:40 Recent Labs: Laboratory Last Values WBC 11.3 Th/cmm (4.8-10.8) H 05/17/18 20:40 RBC 5.47 Mil/cmm (3.80-5.20) H 05/17/18 20:40 Hgb 15.1 gm/dL (12-16) 05/17/18 20:40 Hct 46.4 % (41.0-60) 05/17/18 20:40 MCV 85.0 fl (81-100) 05/17/18 20:40 MCH 27.6 pg (27.0-31.0) 05/17/18 20:40 MCHC Differential 32.5 pg (28.0-36.0) 05/17/18 20:40 RDW 15.9 % (11.5-20.0) 05/17/18 20:40 Plt Count 243 Th/cmm (150-400) 05/17/18 20:40 MPV 8.5 fl 05/17/18 20:40 Neutrophils % 62.5 % (40.0-80.0) 05/17/18 20:40 Lymphocytes % 25.1 % (20.0-50.0) 05/17/18 20:40 Monocytes % 8.8 % (2.0-10.0) 05/17/18 20:40 Eosinophils % 3.1 % (0.0-5.0) 05/17/18 20:40 Basophils % 0.5 % (0.0-2.0) 05/17/18 20:40 Sodium 145 mEq/L (136-145) 05/17/18 20:40 Potassium 4.6 mEq/L (3.5-5.1) 05/17/18 20:40 Chloride 107 mEq/L (98-107) 05/17/18 20:40 Carbon Dioxide 22.5 mEq/L (21.0-31.0) 05/17/18 20:40 Anion Gap 20.1 (7.0-16.0) H 05/17/18 20:40 BUN 25 mg/dL (7-25) 05/17/18 20:40 Creatinine 0.8 mg/dL (0.6-1.2) 05/17/18 20:40 Est GFR ( Amer) TNP 05/17/18 20:40 Est GFR (Non-Af Amer) TNP 05/17/18 20:40 BUN/Creatinine Ratio 31.3 05/17/18 20:40 Glucose 179 mg/dL (70-105) H 05/17/18 20:40 Calcium 9.7 mg/dL (8.6-10.3) 05/17/18 20:40 Total Bilirubin 0.3 mg/dL (0.3-1.0) 05/17/18 20:40 AST 16 U/L (13-39) 05/17/18 20:40 ALT 6 U/L (7-52) L 05/17/18 20:40 Alkaline Phosphatase 114 U/L (34-104) H 05/17/18 20:40 Total Protein 7.4 gm/dL (6.0-8.3) 05/17/18 20:40 Albumin 3.9 gm/dL (3.7-5.3) 05/17/18 20:40 Globulin 3.5 gm/dL 05/17/18 20:40 Albumin/Globulin Ratio 1.1 (1.0-1.8) 05/17/18 20:40 Triglycerides 132 mg/dL (<150) 05/17/18 20:40 Cholesterol 220 mg/dL (<200) H 05/17/18 20:40 LDL Cholesterol Direct 139 mg/dL (75-193) 05/17/18 20:40 HDL Cholesterol 58 mg/dL (23-92) 05/17/18 20:40 - Physical Exam Vitals and I&O: Vital Signs Temp 97.5 F 05/30/18 20:00 Pulse 73 05/30/18 20:00 Resp 19 05/30/18 20:00 BP 125/74 05/30/18 20:00 Pulse Ox 97 05/30/18 20:00 Intake & Output 05/30/18 05/31/18 05/31/18 18:59 06:59 18:59 Intake Total 120 Balance 120 Intake: Oral 120 Other: # Voids 3 Stool Characteristics Soft Formed Active Medications: Current Medications Acetaminophen (Tylenol) 650 mg PO Q4HR PRN PRN Reason: Mild Pain / Temp above 100 Stop: 07/16/18 22:57 Last Admin: 05/24/18 19:36 Dose: 650 mg Ferrous Sulfate (Iron) 325 mg PO DAILY [facility] Stop: 07/17/18 08:59 Last Admin: 05/31/18 08:40 Dose: 325 mg Lorazepam (Ativan) 1 mg PO BID [facility]; Protocol Stop: 07/17/18 08:59 Last Admin: 05/31/18 08:40 Dose: 1 mg Lorazepam (Ativan) 0.5 mg PO Q4HR PRN; Protocol PRN Reason: Anxiety Stop: 06/16/18 23:00 Last Admin: 05/30/18 20:15 Dose: 0.5 mg Magnesium Hydroxide (Milk Of Magnesia) 30 ml PO HS PRN PRN Reason: Constipation Pantoprazole Sodium (Protonix) 40 mg PO 0630 [facility] Stop: 07/17/18 06:29 Last Admin: 05/31/18 06:35 Dose: 40 mg Polyethylene Glycol (Miralax) 17 gm PO DAILY [facility] Stop: 07/17/18 08:59 Last Admin: 05/31/18 08:41 Dose: Not Given Quetiapine Fumarate (Seroquel) 25 mg PO BID [facility]; Protocol Stop: 07/18/18 08:59 Last Admin: 05/31/18 08:40 Dose: 25 mg Zolpidem Tartrate (Ambien) 5 mg PO HS PRN PRN Reason: Insomnia Stop: 07/16/18 22:57 Last Admin: 05/30/18 20:15 Dose: 5 mg General: alert, disheveled HEENT: NC/AT Neck: Supple Lungs: CTAB Cardiovascular: RRR, Normal S2 Extremities: clear Internal Medicine Assmt/Plan - Assessment Assessment: GERD H/O A FIB WEKANESS DEPRESSION - Plan Plan: as per psych will monitor as problems arise Nutritional Asmnt/Malnutr-PDOC - Dietary Evaluation Malnutrition Findings (Please click <Entered> for more info): Nutritional Asmnt/Malnutrition Start: 05/20/18 15: 34 Text: Status: Complete Freq: Protocol: Document 05/20/18 15:40 RUPINDER (Rec: 05/20/18 15:52 RUPINDER [email or web address]) Nutritional Asmnt/Malnutrition Patient General Information Nutritional Screening Moderate Risk Diagnosis psychosis Pertinent Medical Hx/Surgical Hx PUD/GERD, AFIB, weakness, depression Subjective Information Pt eating lunch and appeared to have finished 100% at time of visit. Pt states she dislikes the zucchini and quinoa served, but likes rice. Pt appears to have missing teeth, but PO intake 100% yesterday as well. Current Diet Order/ Nutrition Support [facility] soft chopped, SAMAN Pertinent Medications iron, MOM, protonix, miralax, seroquel Pertinent Labs 05/17: glucose 179, cholesterol 220 Nutritional Hx/Data Height 1.63 m Height (Calculated Centimeters) 162.6 Current Weight (lbs) 68.039 kg Weight (Calculated Kilograms) 68.0 Weight (Calculated Grams) 94792.9 [place] Body Weight 120 lb Body Mass Index (BMI) 25.7 Weight Status Overweight GI Symptoms GI Symptoms None Last BM 05/20 Difficult in: None Food Allergies No Skin Integrity/Comment: intact, caridad 16 Current %PO Good (75-100%) Estimated Nutritional Goals BEE in Kcals: Using Current wt Calories/Kcals/Kg 23-27 Kcals Calculated 8437-7077 Protein: Using Current wt Protein g/k.0 Protein Calculated 68 g Fluid: ml 9615-6571 (1 ml/kcal) Nutritional Problem No current Nutrition Prob Problem no nutrition dx at this time Malnutrition Alert Is there a minimum of two criteria No selected? Query Text:Check all the applicable criteria. A minimum of two criteria are recommended for diagnosis of either severe or non-severe malnutrition. Malnutrition Related to Morbid Obesity Malnutrition related to morbid obesity No Intervention/Recommendation Comments 1. Continue with [facility] soft chopped, SAMAN diet as ordered 2. Consider starting CCHO diet if blood glucose continue above normal limits 3. Monitor PO intake, wt, labs and skin integrity 4. F/U as moderate risk in 3-5 days, 05/23-05/25 Expected Outcomes/Goals Expected Outcomes/Goals 1. PO intake to continue meeting at least 75% of all meals 2. Wt stability, skin to remain intact, and nutrition related labs to approach normal limits Reviewed by Mora Gonsales RD
--- NOTE | 2018-06-01 01:35 | Progress Notes ---
DATE: SUBJECTIVE: Chart reviewed and the patient interviewed. Also discussed the patient's condition with the staff and reviewed records and labs. The patient is still having episodes of yelling and screaming constantly and unable to follow any of directions. The patient also is still easily agitated and she is still suspicious and is still paranoid. She also is still having severe mood swings. Otherwise, the patient is compliant with taking her medications. ASSESSMENT: The patient is still agitated and is still irritable. TREATMENT PLAN: We will continue to monitor her behavior closely. Also, we will increase her Seroquel to 50 mg twice a day and we will continue to follow up. Also, we will add Klonopin in a dose of 0.5 mg twice a day and we will continue to follow up. [facility]# [id number]
[2018-06-01] MEDS: Pantoprazole 40 mg EC Tab PO SCH (06:56)
[2018-06-01] MEDS: POLYETHYLENE GLYCOL 3350 17 GM PACK PO SCH (09:35)
[2018-06-01] MEDS: Ferrous Sulfate 325 MG TAB PO SCH (09:35)
--- NOTE | 2018-06-01 20:32 | Internal Medicine Prog Note ---
Internal Medicine Subjective - Subjective Service Date: 06/01/18 Patient is:: awake, other (anxious) Per staff patient has:: no adverse event Internal Medicine Objective - Results Result Diagrams: 05/17/18 20:40 05/17/18 20:40 Recent Labs: Laboratory Last Values WBC 11.3 Th/cmm (4.8-10.8) H 05/17/18 20:40 RBC 5.47 Mil/cmm (3.80-5.20) H 05/17/18 20:40 Hgb 15.1 gm/dL (12-16) 05/17/18 20:40 Hct 46.4 % (41.0-60) 05/17/18 20:40 MCV 85.0 fl (81-100) 05/17/18 20:40 MCH 27.6 pg (27.0-31.0) 05/17/18 20:40 MCHC Differential 32.5 pg (28.0-36.0) 05/17/18 20:40 RDW 15.9 % (11.5-20.0) 05/17/18 20:40 Plt Count 243 Th/cmm (150-400) 05/17/18 20:40 MPV 8.5 fl 05/17/18 20:40 Neutrophils % 62.5 % (40.0-80.0) 05/17/18 20:40 Lymphocytes % 25.1 % (20.0-50.0) 05/17/18 20:40 Monocytes % 8.8 % (2.0-10.0) 05/17/18 20:40 Eosinophils % 3.1 % (0.0-5.0) 05/17/18 20:40 Basophils % 0.5 % (0.0-2.0) 05/17/18 20:40 Sodium 145 mEq/L (136-145) 05/17/18 20:40 Potassium 4.6 mEq/L (3.5-5.1) 05/17/18 20:40 Chloride 107 mEq/L (98-107) 05/17/18 20:40 Carbon Dioxide 22.5 mEq/L (21.0-31.0) 05/17/18 20:40 Anion Gap 20.1 (7.0-16.0) H 05/17/18 20:40 BUN 25 mg/dL (7-25) 05/17/18 20:40 Creatinine 0.8 mg/dL (0.6-1.2) 05/17/18 20:40 Est GFR ( Amer) TNP 05/17/18 20:40 Est GFR (Non-Af Amer) TNP 05/17/18 20:40 BUN/Creatinine Ratio 31.3 05/17/18 20:40 Glucose 179 mg/dL (70-105) H 05/17/18 20:40 Calcium 9.7 mg/dL (8.6-10.3) 05/17/18 20:40 Total Bilirubin 0.3 mg/dL (0.3-1.0) 05/17/18 20:40 AST 16 U/L (13-39) 05/17/18 20:40 ALT 6 U/L (7-52) L 05/17/18 20:40 Alkaline Phosphatase 114 U/L (34-104) H 05/17/18 20:40 Total Protein 7.4 gm/dL (6.0-8.3) 05/17/18 20:40 Albumin 3.9 gm/dL (3.7-5.3) 05/17/18 20:40 Globulin 3.5 gm/dL 05/17/18 20:40 Albumin/Globulin Ratio 1.1 (1.0-1.8) 05/17/18 20:40 Triglycerides 132 mg/dL (<150) 05/17/18 20:40 Cholesterol 220 mg/dL (<200) H 05/17/18 20:40 LDL Cholesterol Direct 139 mg/dL (75-193) 05/17/18 20:40 HDL Cholesterol 58 mg/dL (23-92) 05/17/18 20:40 - Physical Exam Vitals and I&O: Vital Signs Temp 98 F 06/01/18 20:06 Pulse 78 06/01/18 20:06 Resp 18 06/01/18 20:06 BP 100/50 06/01/18 20:06 Pulse Ox 97 06/01/18 20:06 Intake & Output 06/01/18 06/01/18 06/02/18 06:59 18:59 06:59 Intake Total 360 850 120 Output Total 1 Balance 359 850 120 Intake: Oral 360 850 120 Output: Urine/Stool Mix 1 Other: # Voids 1 4 3 # Bowel Movements 0 1 0 Stool Characteristics Soft Formed Active Medications: Current Medications Acetaminophen (Tylenol) 650 mg PO Q4HR PRN PRN Reason: Mild Pain / Temp above 100 Stop: 07/16/18 22:57 Last Admin: 05/24/18 19:36 Dose: 650 mg Ferrous Sulfate (Iron) 325 mg PO DAILY [facility] Stop: 07/17/18 08:59 Last Admin: 06/01/18 09:35 Dose: 325 mg Magnesium Hydroxide (Milk Of Magnesia) 30 ml PO HS PRN PRN Reason: Constipation Pantoprazole Sodium (Protonix) 40 mg PO 0630 [facility] Stop: 07/17/18 06:29 Last Admin: 06/01/18 06:56 Dose: 40 mg Polyethylene Glycol (Miralax) 17 gm PO DAILY [facility] Stop: 07/17/18 08:59 Last Admin: 06/01/18 09:35 Dose: 17 gm Quetiapine Fumarate (Seroquel) 50 mg PO BID [facility]; Protocol Stop: 07/30/18 16:59 Last Admin: 06/01/18 16:31 Dose: 50 mg General: alert, disheveled HEENT: NC/AT Neck: Supple Lungs: CTAB Cardiovascular: RRR, Normal S2 Extremities: clear Internal Medicine Assmt/Plan - Assessment Assessment: GERD H/O A FIB WEKANESS DEPRESSION - Plan Plan: as per psych will monitor as problems arise Nutritional Asmnt/Malnutr-PDOC - Dietary Evaluation Malnutrition Findings (Please click <Entered> for more info): Nutritional Asmnt/Malnutrition Start: 05/20/18 15: 34 Text: Status: Complete Freq: Protocol: Document 05/20/18 15:40 RUPINDER (Rec: 05/20/18 15:52 RUPINDER [email or web address]) Nutritional Asmnt/Malnutrition Patient General Information Nutritional Screening Moderate Risk Diagnosis psychosis Pertinent Medical Hx/Surgical Hx PUD/GERD, AFIB, weakness, depression Subjective Information Pt eating lunch and appeared to have finished 100% at time of visit. Pt states she dislikes the zucchini and quinoa served, but likes rice. Pt appears to have missing teeth, but PO intake 100% yesterday as well. Current Diet Order/ Nutrition Support [facility] soft chopped, SAMAN Pertinent Medications iron, MOM, protonix, miralax, seroquel Pertinent Labs 05/17: glucose 179, cholesterol 220 Nutritional Hx/Data Height 1.63 m Height (Calculated Centimeters) 162.6 Current Weight (lbs) 68.039 kg Weight (Calculated Kilograms) 68.0 Weight (Calculated Grams) 40321.9 [place] Body Weight 120 lb Body Mass Index (BMI) 25.7 Weight Status Overweight GI Symptoms GI Symptoms None Last BM 05/20 Difficult in: None Food Allergies No Skin Integrity/Comment: intact, caridad 16 Current %PO Good (75-100%) Estimated Nutritional Goals BEE in Kcals: Using Current wt Calories/Kcals/Kg 23-27 Kcals Calculated 9522-8239 Protein: Using Current wt Protein g/k.0 Protein Calculated 68 g Fluid: ml 5651-5831 (1 ml/kcal) Nutritional Problem No current Nutrition Prob Problem no nutrition dx at this time Malnutrition Alert Is there a minimum of two criteria No selected? Query Text:Check all the applicable criteria. A minimum of two criteria are recommended for diagnosis of either severe or non-severe malnutrition. Malnutrition Related to Morbid Obesity Malnutrition related to morbid obesity No Intervention/Recommendation Comments 1. Continue with [facility] soft chopped, SAMAN diet as ordered 2. Consider starting CCHO diet if blood glucose continue above normal limits 3. Monitor PO intake, wt, labs and skin integrity 4. F/U as moderate risk in 3-5 days, 05/23-05/25 Expected Outcomes/Goals Expected Outcomes/Goals 1. PO intake to continue meeting at least 75% of all meals 2. Wt stability, skin to remain intact, and nutrition related labs to approach normal limits Reviewed by Mora Gonsales RD
--- NOTE | 2018-06-01 21:44 | Progress Notes ---
DATE: SUBJECTIVE: Chart reviewed and the patient interviewed. Also discussed the patient's condition with the staff and reviewed records and labs. The patient is less irritable and less agitated. The patient also seems to be slightly calmer. She is confused and she is still forgetful, but shows decrease in behavioral issues. Also, interacting more. ASSESSMENT: The patient is less irritable and less agitated. TREATMENT PLAN: We will continue monitoring behavior closely and working on discharge plans. Hopefully if the patient continues to show improvement, we will discharge her tomorrow. [facility]# [id number]
[2018-06-02] MEDS: Pantoprazole 40 mg EC Tab PO SCH (06:50)
[2018-06-02] MEDS: Ferrous Sulfate 325 MG TAB PO SCH (08:27)
[2018-06-02] MEDS: POLYETHYLENE GLYCOL 3350 17 GM PACK PO SCH (08:27)
--- NOTE | 2018-06-02 12:24 | Internal Medicine Prog Note ---
Internal Medicine Subjective - Subjective Patient seen and examined:: chart reviewed Patient is:: awake, other (anxious, in no distress ) Per staff patient has:: no adverse event Internal Medicine Objective - Results Result Diagrams: 05/17/18 20:40 05/17/18 20:40 Recent Labs: Laboratory Last Values WBC 11.3 Th/cmm (4.8-10.8) H 05/17/18 20:40 RBC 5.47 Mil/cmm (3.80-5.20) H 05/17/18 20:40 Hgb 15.1 gm/dL (12-16) 05/17/18 20:40 Hct 46.4 % (41.0-60) 05/17/18 20:40 MCV 85.0 fl (81-100) 05/17/18 20:40 MCH 27.6 pg (27.0-31.0) 05/17/18 20:40 MCHC Differential 32.5 pg (28.0-36.0) 05/17/18 20:40 RDW 15.9 % (11.5-20.0) 05/17/18 20:40 Plt Count 243 Th/cmm (150-400) 05/17/18 20:40 MPV 8.5 fl 05/17/18 20:40 Neutrophils % 62.5 % (40.0-80.0) 05/17/18 20:40 Lymphocytes % 25.1 % (20.0-50.0) 05/17/18 20:40 Monocytes % 8.8 % (2.0-10.0) 05/17/18 20:40 Eosinophils % 3.1 % (0.0-5.0) 05/17/18 20:40 Basophils % 0.5 % (0.0-2.0) 05/17/18 20:40 Sodium 145 mEq/L (136-145) 05/17/18 20:40 Potassium 4.6 mEq/L (3.5-5.1) 05/17/18 20:40 Chloride 107 mEq/L (98-107) 05/17/18 20:40 Carbon Dioxide 22.5 mEq/L (21.0-31.0) 05/17/18 20:40 Anion Gap 20.1 (7.0-16.0) H 05/17/18 20:40 BUN 25 mg/dL (7-25) 05/17/18 20:40 Creatinine 0.8 mg/dL (0.6-1.2) 05/17/18 20:40 Est GFR ( Amer) TNP 05/17/18 20:40 Est GFR (Non-Af Amer) TNP 05/17/18 20:40 BUN/Creatinine Ratio 31.3 05/17/18 20:40 Glucose 179 mg/dL (70-105) H 05/17/18 20:40 Calcium 9.7 mg/dL (8.6-10.3) 05/17/18 20:40 Total Bilirubin 0.3 mg/dL (0.3-1.0) 05/17/18 20:40 AST 16 U/L (13-39) 05/17/18 20:40 ALT 6 U/L (7-52) L 05/17/18 20:40 Alkaline Phosphatase 114 U/L (34-104) H 05/17/18 20:40 Total Protein 7.4 gm/dL (6.0-8.3) 05/17/18 20:40 Albumin 3.9 gm/dL (3.7-5.3) 05/17/18 20:40 Globulin 3.5 gm/dL 05/17/18 20:40 Albumin/Globulin Ratio 1.1 (1.0-1.8) 05/17/18 20:40 Triglycerides 132 mg/dL (<150) 05/17/18 20:40 Cholesterol 220 mg/dL (<200) H 05/17/18 20:40 LDL Cholesterol Direct 139 mg/dL (75-193) 05/17/18 20:40 HDL Cholesterol 58 mg/dL (23-92) 05/17/18 20:40 - Physical Exam Vitals and I&O: Vital Signs Temp 98.1 F 06/02/18 06:16 Pulse 70 06/02/18 06:16 Resp 18 06/02/18 06:16 BP 126/75 06/02/18 06:16 Pulse Ox 97 06/02/18 06:16 Intake & Output 06/01/18 06/02/18 06/02/18 18:59 06:59 18:59 Intake Total 850 240 Balance 850 240 Intake: Oral 850 240 Other: # Voids 4 1 # Bowel Movements 1 0 Stool Characteristics Soft Soft Formed Formed Active Medications: Current Medications Acetaminophen (Tylenol) 650 mg PO Q4HR PRN PRN Reason: Mild Pain / Temp above 100 Stop: 07/16/18 22:57 Last Admin: 06/02/18 11:15 Dose: 650 mg Ferrous Sulfate (Iron) 325 mg PO DAILY [facility] Stop: 07/17/18 08:59 Last Admin: 06/02/18 08:27 Dose: 325 mg Lorazepam (Ativan) 0.5 mg PO Q4HR PRN; Protocol PRN Reason: Anxiety Stop: 08/01/18 05:40 Lorazepam (Ativan) 1 mg PO BID [facility]; Protocol Stop: 08/01/18 08:59 Last Admin: 06/02/18 08:27 Dose: 1 mg Magnesium Hydroxide (Milk Of Magnesia) 30 ml PO HS PRN PRN Reason: Constipation Pantoprazole Sodium (Protonix) 40 mg PO 0630 [facility] Stop: 07/17/18 06:29 Last Admin: 06/02/18 06:50 Dose: 40 mg Polyethylene Glycol (Miralax) 17 gm PO DAILY [facility] Stop: 07/17/18 08:59 Last Admin: 06/02/18 08:27 Dose: 17 gm Quetiapine Fumarate (Seroquel) 75 mg PO BID [facility]; Protocol Stop: 08/01/18 08:59 Last Admin: 06/02/18 08:28 Dose: 75 mg Quetiapine Fumarate (Seroquel) 100 mg PO HS [facility]; Protocol Stop: 08/01/18 20:59 Zolpidem Tartrate (Ambien) 5 mg PO HS PRN PRN Reason: Insomnia Stop: 08/01/18 05:43 General: alert, disheveled HEENT: NC/AT Neck: Supple Lungs: CTAB Cardiovascular: RRR, Normal S2 Extremities: clear Internal Medicine Assmt/Plan - Assessment Assessment: GERD H/O A FIB WEKANESS DEPRESSION - Plan Plan: as per psych will monitor as problems arise Nutritional Asmnt/Malnutr-PDOC - Dietary Evaluation Malnutrition Findings (Please click <Entered> for more info): Nutritional Asmnt/Malnutrition Start: 05/20/18 15: 34 Text: Status: Complete Freq: Protocol: Document 05/20/18 15:40 RUPINDER (Rec: 05/20/18 15:52 RUPINDER [email or web address]) Nutritional Asmnt/Malnutrition Patient General Information Nutritional Screening Moderate Risk Diagnosis psychosis Pertinent Medical Hx/Surgical Hx PUD/GERD, AFIB, weakness, depression Subjective Information Pt eating lunch and appeared to have finished 100% at time of visit. Pt states she dislikes the zucchini and quinoa served, but likes rice. Pt appears to have missing teeth, but PO intake 100% yesterday as well. Current Diet Order/ Nutrition Support [facility] soft chopped, SAMAN Pertinent Medications iron, MOM, protonix, miralax, seroquel Pertinent Labs 05/17: glucose 179, cholesterol 220 Nutritional Hx/Data Height 1.63 m Height (Calculated Centimeters) 162.6 Current Weight (lbs) 68.039 kg Weight (Calculated Kilograms) 68.0 Weight (Calculated Grams) 73723.9 [place] Body Weight 120 lb Body Mass Index (BMI) 25.7 Weight Status Overweight GI Symptoms GI Symptoms None Last BM 05/20 Difficult in: None Food Allergies No Skin Integrity/Comment: intact, caridad 16 Current %PO Good (75-100%) Estimated Nutritional Goals BEE in Kcals: Using Current wt Calories/Kcals/Kg 23-27 Kcals Calculated 3014-4848 Protein: Using Current wt Protein g/k.0 Protein Calculated 68 g Fluid: ml 6521-8227 (1 ml/kcal) Nutritional Problem No current Nutrition Prob Problem no nutrition dx at this time Malnutrition Alert Is there a minimum of two criteria No selected? Query Text:Check all the applicable criteria. A minimum of two criteria are recommended for diagnosis of either severe or non-severe malnutrition. Malnutrition Related to Morbid Obesity Malnutrition related to morbid obesity No Intervention/Recommendation Comments 1. Continue with [facility] soft chopped, SAMAN diet as ordered 2. Consider starting CCHO diet if blood glucose continue above normal limits 3. Monitor PO intake, wt, labs and skin integrity 4. F/U as moderate risk in 3-5 days, 05/23-05/25 Expected Outcomes/Goals Expected Outcomes/Goals 1. PO intake to continue meeting at least 75% of all meals 2. Wt stability, skin to remain intact, and nutrition related labs to approach normal limits Reviewed by Mora Gonsales RD
--- NOTE | 2018-06-02 22:42 | Discharge Summary ---
DATE OF DISCHARGE: 06/02/2018 PATIENT'S AGE: . SEX: Female. PHYSICIAN: Donis Hicks MD, MPH FINAL DIAGNOSES: PRIMARY DIAGNOSIS: Unspecified psychosis. SECONDARY DIAGNOSIS: Dementia, [id number], with psychotic feature and behavioral problems. MEDICAL DIAGNOSES: Atrial fib. Gastroesophageal reflux disease. REASON FOR HOSPITALIZATION: The patient was admitted to the hospital because of increased agitation with yelling and screaming behavior constantly. HOSPITAL COURSE: The patient continued to be extremely irritable and continued to be agitated and irritable mood. The patient also was having difficulty following directions. The patient also was interacting minimally with others. She also was aggressive and angry. The patient was started on Seroquel and the dose adjusted to 75 mg twice a day and 100 mg at bedtime. Gradually, the patient's affect was brighter. The patient was less irritable and less agitated. The patient also was interacting minimally with others. The patient was discharged from the hospital. The patient is returning back to [facility]. Physical exam of the patient basically showed no major medical problems and blood workup was monitored closely and was basically within normal. AFTER DISCHARGE PLANS: The patient discharged from the hospital and returning to [facility] with plan for followup there. EXPECTED OUTCOME AFTER DISCHARGE: Fair if the patient continues to take her psychotropic medications and follow up with her plans. [facility]# [id number]
== END 2018-06-02 16:15 | DRG 885 ==
LOC: ER 20:05 → GERO 21:25
PROVIDERS: ADMIT Psychiatry & Neurology Psychiatry; ATTEND Psychiatry & Neurology Psychiatry
DX: F29 Unspecified psychosis not due to a substance or known physiological condition (principal); F03.91 Unspecified dementia, unspecified severity, with behavioral disturbance; I48.91 Unspecified atrial fibrillation; K21.9 Gastro-esophageal reflux disease without esophagitis; R53.1 Weakness; F32.9 Major depressive disorder, single episode, unspecified; D50.9 Iron deficiency anemia, unspecified; M19.90 Unspecified osteoarthritis, unspecified site; F41.9 Anxiety disorder, unspecified; Z79.899 Other long term (current) drug therapy
CPT/HCPCS: 36415-UA; 80053-TC; 80061-TC; 83036-90; 85025-TC; J0696; J1630; J2060; Z7610